=== PATIENT | female | born 1950 | race American Indian/Alaskan Native ===

== ENCOUNTER 2018-12-20 01:49 | Inpatient (IN) | payer MEDICARE ==
--- NOTE | 2018-12-20 02:29 | Emergency Department Report ---
ED General Adult HPI - General Chief complaint: Seizure Stated complaint: POSTICTAL Time Seen by Provider: 12/20/18 02:00 Source: patient, family, EMS (ems notes not available at time of chart dictation), RN notes reviewed Mode of arrival: Stretcher Limitations: Physical Limitation - History of Present Illness Initial comments: This is a 68-year-old female. The patient is not known to this provider previously. She has a history of chronic respiratory failure and is currently on home oxygen. She reportedly has a history of arthritis, seizure, not currently taking antiepileptic drug medication, congestive heart failure (does not know her ejection fraction), currently on torsemide diuretic therapy The patient formerly followed with the [facility], and now she follows with [facility]. She is brought to the hospital by emergent medical services for complaint of "seizure." The patient is accompanied by her son. Apparently, she is not taking any seizure medications, and her last convulsive event was 6-7 months ago. The patient was apparently in bed, and had a seizure. Were not sure how long it lasted for, were not sure what look like. The patient has chronic shortness of breath. However, she's recently been coughing more, and feeling more short of breath. She feels like her legs are slightly more swollen than usual. She has crampy achy lower extremity pain. The patient also describes abdominal cramping, and diarrhea. No irritative or obstructive urinary symptoms. The patient articulated to emergency medical services that she felt like she dislocated her kneecap, but is now resolved. The patient denies focal extremity weakness at this time. -: Sudden, days(s) Location: left, right, lower extremity Radiation: other Quality: other Consistency: other Improves with: other Worsens with: other Associated Symptoms: cough, seizure, shortness of breath, weakness - Related Data Home Medications Medication Instructions Recorded Confirmed Last Taken Losartan/Hydrochlorothiazide 1 tab PO QDAY 08/13/13 08/13/13 08/13/13 06:30 [Hyzaar 100-25 TAB] Allergies Allergy/AdvReac Type Severity Reaction Status Date / Time lisinopril Allergy Angioedema Verified 08/13/13 15:50 ED Review of Systems ROS: Stated complaint: POSTICTAL Other details as noted in HPI Constitutional: malaise. denies: diaphoresis Eyes: denies: eye discharge ENT: congestion Respiratory: shortness of breath, wheezing Cardiovascular: edema Gastrointestinal: abdominal pain, diarrhea Genitourinary: denies: dysuria Musculoskeletal: joint swelling, arthralgia, myalgia Skin: denies: lesions Neurological: confusion ED Past Medical Hx - Past Medical History Previous Medical History?: Yes Hx Hypertension: Yes Hx Congestive Heart Failure: Yes Hx Arthritis: Yes Hx Seizures: Yes - Surgical History Past Surgical History?: Yes Additional Surgical History: bilateral knee surgery - Social History Smoking Status: Former Smoker - Medications Home Medications: Home Medications Medication Instructions Recorded Confirmed Last Taken Type Losartan/Hydrochlorothiazide 1 tab PO QDAY 08/13/13 08/13/13 08/13/13 06:30 History [Hyzaar 100-25 TAB] ED Physical Exam - General Limitations: Physical Limitation General appearance: alert, in no apparent distress - Head Head exam: Present: atraumatic, normocephalic - Eye Eye exam: Present: normal appearance, PERRL, EOMI, other (visual acuity intact to finger counting, color perception, reading at a close distance). Absent: nystagmus - ENT ENT exam: Present: normal exam, normal orophraynx, mucous membranes moist, normal external ear exam - Neck Neck exam: Present: normal inspection, full ROM. Absent: tenderness, meningismus - Respiratory Respiratory exam: Present: rales, rhonchi - Cardiovascular Cardiovascular Exam: Present: regular rate, normal rhythm, normal heart sounds. Absent: bradycardia, tachycardia, irregular rhythm, diastolic murmur, rubs, gallop - GI/Abdominal GI/Abdominal exam: Present: soft. Absent: distended, tenderness, guarding, rebound, rigid, pulsatile mass - Extremities Exam Extremities exam: Present: normal inspection, pedal edema (3+ edema in the lower extremities), other (2+ pulses noted in the bilateral upper, lower extremities. Compartments soft. No long bony tenderness. The pelvis is stable.). Absent: calf tenderness - Back Exam Back exam: Present: normal inspection, full ROM. Absent: tenderness, CVA tenderness (R), paraspinal tenderness, vertebral tenderness - Neurological Exam Neurological exam: Present: alert (alert to name and location.), other (Extraocular movements intact. Tongue midline. No facial droop. Facial sensation intact to light touch in the V1, V2, V3 distribution bilaterally. 5 and 5 strength in 4 extremities.. Sensation is intact to light touch in 4 extremities.). Absent: motor sensory deficit - Psychiatric Psychiatric exam: Present: normal affect, normal mood - Skin Skin exam: Present: warm, dry, intact, normal color. Absent: rash ED Course Vital Signs 12/20/18 12/20/18 02:27 03:58 Temperature 97.7 F 97.7 F Pulse Rate 90 Respiratory 22 Rate Blood Pressure 109/68 [Right] O2 Sat by Pulse 97 Oximetry - Reevaluation(s) Reevaluation #1: 12/20/18 04:30 Differential diagnosis, including but not limited to: Pneumonia, congestive heart failure, bronchitis, emphysema, urinary tract infection, breakthrough seizure secondary to medication noncompliance Assessment and plan: 68-year-old female with a primary complaint of seizure, now awake and alert, nonfocal neurologic exam, intact mental status baseline as per son. On review of systems, endorses lower extremity pain, swelling, cough, shortness of breath. Suspect congestive heart failure exacerbation. Patient has lower extremity edema, crackles, elevated proBNP. Found to be hyponatremic, likely hypervolemic hyponatremia, hypomagnesemia, with renal insufficiency. May be a component of cardiorenal syndrome. Also hypocalcemic, may be secondary to malnutrition, as patient also has decreased albumin. X-ray of the lower extremities show no obvious fracture or dislocation. X-ray of the lungs suggests emphysematous changes, question congestive heart failure. Noncontrast CT scan of the brain, abdomen and pelvis is pending at this time. Plan to admit patient to the medical service for diuresis, initiation of a ED therapy, and electrolyte optimization, once her initial diagnostics have resulted. Reevaluation #2: 12/20/18 05:18 Laboratory studies also demonstrated hypomagnesemia. Noncontrast CT scan of the brain is negative. Noncontrast CT scan of the abdomen and pelvis negative for acute disease. Magnesium supplementation ordered. Case is presented to the Hospital physician, Dr. Austin who has accepted the patient to the medical service. ED Medical Decision Making - Lab Data Result diagrams: 12/20/18 03:06 12/20/18 03:06 Vital Signs 12/20/18 12/20/18 02:27 03:58 Temperature 97.7 F 97.7 F Pulse Rate 90 Respiratory 22 Rate Blood Pressure 109/68 [Right] O2 Sat by Pulse 97 Oximetry Lab Results 12/20/18 12/20/18 12/20/18 Range/Units 02:00 03:06 03:06 WBC 14.4 H (4.5-11.0) K/mm3 RBC 3.55 L (3.65-5.03) M/mm3 Hgb 11.2 (10.1-14.3) gm/dl Hct 33.8 (30.3-42.9) % MCV 95 (79-97) fl MCH 32 (28-32) pg MCHC 33 (30-34) % RDW 19.9 H (13.2-15.2) % Plt Count 233 (140-440) K/mm3 PT 15.1 H (12.2-14.9) Sec. INR 1.12 (0.87-1.13) Sodium (137-145) mmol/L Potassium (3.6-5.0) mmol/L Chloride (98-107) mmol/L Carbon Dioxide (22-30) mmol/L Anion Gap mmol/L BUN (7-17) mg/dL Creatinine (0.7-1.2) mg/dL Estimated GFR ml/min BUN/Creatinine Ratio % Glucose (65-100) mg/dL Calcium (8.4-10.2) mg/dL Total Bilirubin (0.1-1.2) mg/dL AST (5-40) units/L ALT (7-56) units/L Alkaline Phosphatase (35-129) units/L Total Creatine Kinase (30-135) units/L NT-Pro-B Natriuret Pep (0-900) pg/mL Total Protein (6.3-8.2) g/dL Albumin (3.9-5) g/dL Albumin/Globulin Ratio % Urine Color Yellow (Yellow) Urine Turbidity Slightly-cloudy (Clear) Urine pH 5.0 (5.0-7.0) Ur Specific Bernie 1.008 (1.003-1.030) Urine Protein <15 mg/dl (Negative) mg/dL Urine Glucose (UA) Neg (Negative) mg/dL Urine Ketones Neg (Negative) mg/dL Urine Blood Neg (Negative) Urine Nitrite Neg (Negative) Urine Bilirubin Neg (Negative) Urine Urobilinogen < 2.0 (<2.0) mg/dL Ur Leukocyte Esterase Neg (Negative) Urine WBC (Auto) 1.0 (0.0-6.0) /HPF Urine RBC (Auto) 1.0 (0.0-6.0) /HPF U Epithel Cells (Auto) 17.0 H (0-13.0) /HPF Urine Bacteria (Auto) 1+ (Negative) /HPF Amorphous Crystals 1+ Hyaline Casts 7 /LPF Urine Mucus Few /HPF 04// Range/Units 03:06 WBC (4.5-11.0) K/mm3 RBC (3.65-5.03) M/mm3 Hgb (10.1-14.3) gm/dl Hct (30.3-42.9) % MCV (79-97) fl MCH (28-32) pg MCHC (30-34) % RDW (13.2-15.2) % Plt Count (140-440) K/mm3 PT (12.2-14.9) Sec. INR (0.87-1.13) Sodium 129 L (137-145) mmol/L Potassium 3.0 L (3.6-5.0) mmol/L Chloride 86.1 L (98-107) mmol/L Carbon Dioxide 22 (22-30) mmol/L Anion Gap 24 mmol/L BUN 35 H (7-17) mg/dL Creatinine 1.4 H (0.7-1.2) mg/dL Estimated GFR 45 ml/min BUN/Creatinine Ratio 25 % Glucose 125 H (65-100) mg/dL Calcium 6.0 L (8.4-10.2) mg/dL Total Bilirubin 1.20 (0.1-1.2) mg/dL AST 33 (5-40) units/L ALT 17 (7-56) units/L Alkaline Phosphatase 59 (35-129) units/L Total Creatine Kinase 238 H (30-135) units/L NT-Pro-B Natriuret Pep 95563 H (0-900) pg/mL Total Protein 6.3 (6.3-8.2) g/dL Albumin 2.8 L (3.9-5) g/dL Albumin/Globulin Ratio 0.8 % Urine Color (Yellow) Urine Turbidity (Clear) Urine pH (5.0-7.0) Ur Specific Bernie (1.003-1.030) Urine Protein (Negative) mg/dL Urine Glucose (UA) (Negative) mg/dL Urine Ketones (Negative) mg/dL Urine Blood (Negative) Urine Nitrite (Negative) Urine Bilirubin (Negative) Urine Urobilinogen (<2.0) mg/dL Ur Leukocyte Esterase (Negative) Urine WBC (Auto) (0.0-6.0) /HPF Urine RBC (Auto) (0.0-6.0) /HPF U Epithel Cells (Auto) (0-13.0) /HPF Urine Bacteria (Auto) (Negative) /HPF Amorphous Crystals Hyaline Casts /LPF Urine Mucus /HPF - EKG Data -: EKG Interpreted by Me EKG shows normal: sinus rhythm - EKG Data When compared to previous EKG there are: previous EKG unavailable 12/20/18 04:32 EKG shows a sinus rhythm, left axis deviation, QTC prolonged, motion artifact, low voltage in the lateral leads, incomplete right bundle branch block, T-wave abnormalities in V2, V3, V4, V5, this is an abnormal EKG, this EKG is not consistent with ST elevation myocardial infarction. There is no prior for comparison. - Radiology Data Radiology results: pending, image reviewed interpreted by me: X-ray of the bilateral lower extremities demonstrates no obvious fracture or dislocation. Knee hardware is noted, DJD is noted, soft tissue swelling is noted. X-ray the chest shows chronic changes, emphysematous versus congestive heart failure versus both. Enlarged cardiac silhouette. No obvious pneumothorax. No discrete infiltrate. Question atelectatic changes. Critical Care Time: Yes Critical care time in (mins) excluding proc time.: 45 Critical care attestation.: If time is entered above; I have spent that time in minutes in the direct care of this critically ill patient, excluding procedure time. ED Disposition Clinical Impression: Breakthrough seizure, Fluid overload, Hypomagnesemia, Hypokalemia Disposition: 09 OP ADMIT IP TO THIS HOSP Is pt being admited?: Yes Condition: Fair Referrals: KRYSTAL CHASE MD [Primary Care Provider] - 3-5 Days
[2018-12-20 03:10] LABS: Amorphous Crystals,Urine 1+; Bacteria,Urine 1+ /HPF (Negative); Bilirubin,Urine NEG (Negative); Blood,Urine NEG (Negative); Color,Urine Yellow (Yellow); Hyaline Casts,Urine 7 /LPF; Mucus,Urine FEW /HPF; Protein,Urine <15 mg/dL mg/dL (Negative); Urobilinogen,Urine < 2.0 mg/dL (<2.0)
[2018-12-20 03:26] LABS: Hematocrit 33.8 % (30.3-42.9); Hemoglobin 11.2 gm/dl (10.1-14.3); Mean Corpuscular HGB Conc 33 % (30-34); Mean Corpuscular Volume 95 fl (79-97); Platelet Count 233 K/mm3 (140-440); Red Blood Count 3.55 M/mm3 (3.65-5.03); Red Cell Distribution Width 19.9 % (13.2-15.2)
[2018-12-20 03:36] LABS: INR 1.12 (0.87-1.13)
[2018-12-20 03:53] LABS: Albumin 2.8 g/dL (3.9-5)
[2018-12-20] MEDS ORDERED: LASIX IV ONE (04:40)
[2018-12-20] MEDS ORDERED: K-DUR PO ONE (04:40)
--- NOTE | 2018-12-20 04:56 | Cat Scan Report ---
PROCEDURE: CT HEAD/BRAIN WO CON TECHNIQUE: Computerized tomography of the head was performed without contrast material. CT DOSE LENGTH PRODUCT: mGycm HISTORY: hx of sz COMPARISONS: None . FINDINGS: Skull and scalp: Normal . Paranasal sinuses: Normal . Ventricles and subarachnoid spaces: There is mild central and cortical atrophy. There is no hydrocep halus or asymmetry. . Cerebrum: No evidence of hemorrhage, acute infarction or mass . Cerebellum and brainstem: No evidence of hemorrhage, acute infarction or mass . Vasculature: Normal . IMPRESSION: There is no acute intracranial abnormality. . This document is electronically signed by Deejay Song MD., December 20 2018 04:54:42 AM ET
[2018-12-20] MEDS: KCL 10MEQ/100ML 10 MEQ/100 ML BAG IV SCH ×4 (05:00→13:50)
--- NOTE | 2018-12-20 05:09 | Cat Scan Report ---
PROCEDURE: CT ABDOMEN PELVIS WO CON TECHNIQUE: Computerized axial tomography of the abdomen and pelvis was performed without intravenous contrast. This study is performed without intravascular contrast material and its sensitivity for ab dominal and pelvic pathology, including neoplasms, inflammation, abscess, free fluid, thrombosis, art erial dissection and infarction, is reduced compared with a contrast enhanced study. CT DOSE LENGTH PRODUCT: mGycm HISTORY: hx of abd pain diarrhea COMPARISONS: None . FINDINGS: Visualized lower thorax: No significant abnormality. Liver: Normal size and attenuation. Spleen: Normal size and attenuation. Gallbladder and biliary system: There is cholelithiasis.. Pancreas: Normal. Adrenals: Normal. Kidneys: There are no kidney stones. GI tract: There is diverticulosis of the colon. There is no diverticulitis, colitis, obstruction or mass. The appendix is normal. . Lymph nodes and mesentery: Normal. Vasculature: Normal.. Bladder: There is air in the bladder. There is a left-sided bladder diverticulum.. Reproductive organs: There is small calcified uterine fibroids.. Peritoneum: There is no ascites, free air, abscess or adenopathy.. Musculoskeletal structures: No significant abnormality. IMPRESSION: There is cholelithiasis.. There are no kidney stones. There is no hydronephrosis. There is diverticulosis of the colon. There is no diverticulitis, colitis, obstruction or mass. The a ppendix is normal. . There is air in the bladder. There is a left-sided bladder diverticulum.. There is no ascites, free air, abscess or adenopathy.. . This document is electronically signed by Deejay Song MD., December 20 2018 05:07:47 AM ET
[2018-12-20] MEDS ORDERED: MAG-OX PO STA (05:15)
[2018-12-20] MEDS ORDERED: MAGNESIUM SULFATE 2GM/50ML 2 GM/50 ML BAG IV ONE (05:15)
[2018-12-20] MEDS ORDERED: MAGNESIUM SULFATE 1 GM in NACL 0.9% 50 ML IV ONE ×2 (05:15→18:44)
[2018-12-20] MEDS ORDERED: CALCIUM GLUCONATE 1,000 MG in NACL 0.9% 100 ML IV ONE (05:19)
--- NOTE | 2018-12-20 05:24 | XRay Report ---
PROCEDURE: XR CHEST 1V AP TECHNIQUE: AP portable chest radiograph HISTORY: dyspnea COMPARISONS: Prior chest radiograph 12/30/2008. CT abdomen pelvis of the same date FINDINGS: No mediastinal shift. Cardiac silhouette is not enlarged. No pneumothorax, effusion, or focal airspac e disease identified. Bibasilar reticular opacities. No acute skeletal findings. IMPRESSION: No acute pulmonary finding identified. Bibasilar scarring/fibrosis. This document is electronically signed by Don Zaidi MD., December 20 2018 05:22:31 AM ET
--- NOTE | 2018-12-20 05:59 | XRay Report ---
PROCEDURE: XR KNEE BILAT 1-2V TECHNIQUE: 2 views of both knees HISTORY: b/l knee pain COMPARISONS: None available FINDINGS: Bilateral total knee arthroplasty with patellar resurfacing. Hardware appears intact. No joint effusi on identified. There is fragmentation of the superior right patella and asymmetric mild prepatellar s oft tissue swelling on the right. Vascular calcifications are noted. IMPRESSION: Bilateral total knee arthroplasty hardware appears intact. There is fragmentation of the superior makenna e right patella, which is favored to be chronic but correlation with point tenderness and history of injury is requested. This document is electronically signed by Don Zaidi MD., December 20 2018 05:56:50 AM ET
[2018-12-20] MEDS ORDERED: ZOFRAN IV PRN ×2 (06:00→06:04)
[2018-12-20] MEDS ORDERED: ATIVAN IV PRN (06:07)
--- NOTE | 2018-12-20 07:33 | History and Physical Report ---
History of Present Illness Date of examination: 12/20/18 Date of admission: 12/20/18 Chief complaint: Seizure History of present illness: This is a 68 y/o female with h/o arthritis, chf, chronic respiratory failure on home o2, remote h/o seizure not on meds for 5 years presented with sudden onset of seizure like activity witnessed by the Son. There was no tonguw bite, no loss of bowel/bladder, duration of seizure unknown. In the ER patient was oriented, c/o SOB and minimal leg swelling but no chest pain and oriented X3. her lab showed mg 0.4, with low Na, K and Ca. Her CT head had no acute process. She is on torsemide at home and admits compliance with meds. She denies any N/V/D or abdominal pain. She was called fir admission for further evaluation and management. Past medical History: h/o arthritis, chf, remote h/o seizure, on home O2 Past surgical History: s/p b/l knee replacement Social History: Lives with family, denies any smoking, and elicit drug abuse. admits occational drinking Family History: Significant for cancer in sister Review of System: Constitutional: no fever, no chills, no weight loss Ears, eyes, nose, mouth and throat: no nasal congestion, no nasal discharge, no sinus pressure, no vision change, no red eye. Neck: No neck pain or rigidity. Cardiovascular: No chest pain, no orthopnea, no palpitations, + minimal leg swelling Respiratory: + shortness of breath, no cough, no congestion, no wheezing Gastrointestinal: no abdominal pain, no nausea, no vomiting Genitourinary : no dysuria, no hematuria Musculoskeletal: no joint swelling or muscle ache Integumentary: no rash, no pruritis Neurological: no parathesias, no numbness, no tingling Endocrine: no cold or heat intolerance, no polyuria or polydipsia Hematologic/Lymphatic: no easy bruising, no easy bleeding, no gland swelling Allergic/Immunologic: no urticaria, no angioedema. Medications and Allergies Allergies Allergy/AdvReac Type Severity Reaction Status Date / Time lisinopril Allergy Angioedema Verified 08/13/13 15:50 Home Medications Medication Instructions Recorded Confirmed Last Taken Type Losartan/Hydrochlorothiazide 1 tab PO QDAY 08/13/13 12/20/18 08/13/13 06:30 History [Hyzaar 100-25 TAB] Carvedilol [Coreg] 3.125 mg PO DAILY 12/20/18 12/20/18 Unknown History Iron [Iron 18 MG TAB] 18 mg PO QDAY 12/20/18 12/20/18 Unknown History Omeprazole 20 mg PO DAILY 12/20/18 12/20/18 Unknown History Potassium Chloride [K-Dur] 10 meq PO BID 12/20/18 12/20/18 Unknown History Torsemide [Demadex] 10 mg PO QDAY 12/20/18 12/20/18 Unknown History Active Meds: Active Medications Acetaminophen (Tylenol) 650 mg PO Q4H PRN PRN Reason: Pain MILD(1-3)/Fever >100.5/HURTADO Potassium Chloride (Kcl 10meq/100ml) 10 meq in 100 mls @ 100 mls/hr IV Q1H BARB Stop: 12/20/18 08:59 Last Admin: 12/20/18 05:00 Dose: 100 mls/hr Documented by: Lorazepam (Ativan) 1 mg IV Q1H PRN PRN Reason: Seizures Ondansetron HCl (Zofran) 4 mg IV Q8H PRN PRN Reason: Nausea And Vomiting Sodium Chloride (Sodium Chloride Flush Syringe 10 Ml) 10 ml IV BID BARB Sodium Chloride (Sodium Chloride Flush Syringe 10 Ml) 10 ml IV PRN PRN PRN Reason: LINE FLUSH Exam - Physical Exam Narrative exam: GENERAL: well-developed and elderly AAF lying on bed appeared to be in no discomfort. HEENT: Normocephalic. Atraumatic. No conjunctival congestion or icterus. Patient has moist mucous membranes. NECK: Supple. Trachea midline. CHEST/LUNGS: Clear to auscultated bilaterally, + bibasilar crackles or rhonchi. HEART/CARDIOVASCULAR: Regular in rate and rhythm. S1 and S2 positive. ABDOMEN: Abdomen is soft, nontender. Patient has normal bowel sounds. SKIN: There is no rash. Warm and dry. NEURO: No focal motor deficit. Follows command. MUSCULOSKELETAL: No joint effusion or tenderness. EXTRIMITY: mild edema, no cyanosis or clubbing. PSYCH: Cooperative. - Constitutional Vitals: Temp Pulse Resp BP Pulse Ox 97.7 F 90 18 104/56 98 12/20/18 03:58 12/20/18 06:49 12/20/18 06:49 12/20/18 06:49 12/20/18 06:49 Results - Labs CBC & Chem 7: 12/20/18 03:06 12/22/18 07:42 Labs: Abnormal lab results 12/20/18 12/20/18 12/20/18 Range/Units 02:00 03:06 03:06 WBC 14.4 H (4.5-11.0) K/mm3 RBC 3.55 L (3.65-5.03) M/mm3 RDW 19.9 H (13.2-15.2) % PT 15.1 H (12.2-14.9) Sec. Sodium (137-145) mmol/L Potassium (3.6-5.0) mmol/L Chloride (98-107) mmol/L BUN (7-17) mg/dL Creatinine (0.7-1.2) mg/dL Glucose (65-100) mg/dL Calcium (8.4-10.2) mg/dL Magnesium (1.7-2.3) mg/dL Total Creatine Kinase (30-135) units/L NT-Pro-B Natriuret Pep (0-900) pg/mL Albumin (3.9-5) g/dL U Epithel Cells (Auto) 17.0 H (0-13.0) /HPF 12/20/18 Range/Units 03:06 WBC (4.5-11.0) K/mm3 RBC (3.65-5.03) M/mm3 RDW (13.2-15.2) % PT (12.2-14.9) Sec. Sodium 129 L (137-145) mmol/L Potassium 3.0 L (3.6-5.0) mmol/L Chloride 86.1 L (98-107) mmol/L BUN 35 H (7-17) mg/dL Creatinine 1.4 H (0.7-1.2) mg/dL Glucose 125 H (65-100) mg/dL Calcium 6.0 L (8.4-10.2) mg/dL Magnesium 0.40 L* (1.7-2.3) mg/dL Total Creatine Kinase 238 H (30-135) units/L NT-Pro-B Natriuret Pep [id number] H (0-900) pg/mL Albumin 2.8 L (3.9-5) g/dL U Epithel Cells (Auto) (0-13.0) /HPF Assessment and Plan Acute seizure, likely from electrolytes imbalance ? - CT head negative, cont keppra, consult neuro, seizure precaution CHF, with unknown ejection fraction - obtain 2d echo, cont home meds Chronic respiratory failure, likely from CHF?, cont supplemental O2 Hypokalemia, replete - likely from diuretics? Hypomagnesemia, cont to replete and monitor, likely from diuretics? Hypocalcemia, replete, check PTH and VitD hyponatremia, dehydration? - monitor BMP RADHIKA on possible CKD, monitor renal function, consult renal, renal US Osteoarthritis, supportive care DVT Px, lovenox Radiological data: CXR: No acute pulmonary finding identified. Bibasilar scarring/fibrosis. CT abdomen/pelvis; There is cholelithiasis.. There are no kidney stones. There is no hydronephrosis. There is diverticulosis of the colon. There is no diverticulitis, colitis, obstruction or mass. The appendix is normal. . There is air in the bladder. There is a left-sided bladder diverticulum.. There is no ascites, free air, abscess or adenopathy.. . CT head: There is no acute intracranial abnormality. .
[2018-12-20] MEDS ORDERED: KCL 10MEQ/100ML 30 MEQ/300 ML BAG IV ONE (07:55)
[2018-12-20] MEDS: KEPPRA 750 MG in NACL 0.9% 100 ML IV SCH ×2 (09:11→22:55)
[2018-12-20] MEDS: SODIUM CHLORIDE FLUSH SYRINGE 10 ML IV SCH ×2 (10:52→22:55)
[2018-12-20] MEDS ORDERED: CALCIUM GLUCONATE 2,000 MG in NACL 0.9% 100 ML IV ONE (15:04)
[2018-12-20] MEDS: K-DUR PO SCH (22:55)
[2018-12-20] MEDS: COREG PO SCH (22:55)
[2018-12-21] MEDS: TYLENOL PO PRN ×2 (00:31→15:41)
[2018-12-21] MEDS ORDERED: PROVENTIL IH PRN (02:00)
[2018-12-21 07:42] LABS: Calcium 6.3 mg/dL (8.4-10.2)
[2018-12-21] MEDS ORDERED: MAGNESIUM SULFATE 2GM/50ML 2 GM/50 ML BAG IV ONE ×2 (09:30→18:00)
[2018-12-21] MEDS ORDERED: NON-FORMULARY (Omeprazole [Omeprazole] 20 MG) PO SCH (10:00)
[2018-12-21] MEDS ORDERED: IRON 18 MG PO SCH (10:00)
[2018-12-21] MEDS: SODIUM CHLORIDE FLUSH SYRINGE 10 ML IV SCH ×3 (10:15→22:31)
[2018-12-21] MEDS: K-DUR PO SCH ×2 (10:15→22:30)
[2018-12-21] MEDS: PROTONIX PO SCH (10:15)
[2018-12-21] MEDS: COREG PO SCH (11:01)
[2018-12-21] MEDS: KEPPRA 750 MG in NACL 0.9% 100 ML IV SCH ×2 (11:34→22:30)
[2018-12-21] MEDS ORDERED: LOVENOX SUB-Q SCH (12:00)
--- NOTE | 2018-12-21 12:25 | Event Note ---
Date: 12/21/[address] Frances. Recurrence of seizures may just be due to the very low magnesium of 0.4. Agree with restarting her Keppra to send her home on, then have her follow-up with an outpatient neurologist who may later be able to taper it off again. No further seizure workup needed here and no need for me to see her. Magnesium has improved to 1.0 but I suspect she may need 4-6 grams magnesium sulfate per day IV for a few days before oral magnesium (preferably chelated or magnesium citrate gelcaps since better absorbed) can maintain her. The bigger question is why her magnesium got so low. Dr. Velasquez, spray painter, will address this expertly.
--- NOTE | 2018-12-21 14:25 | Consultation ---
History of Present Illness - Reason for Consult Consult date: 12/21/18 acute renal failure, other (hypomagnesemia) - History of Present Illness The patient is a 68 YO female with history significant for HTN, Chronic respiratory failure home O2, OA, Seizure disorder, CHF and Obesity who was brou ght to the hospital by EMS with complaint of seizure. The patient was had a seizure while in the bed. Patient was not able to provide the details and there was no family member at the bedside. Her last seizure was 6-7 months ago and currently she is not taking any seizure medications. Patient has chronic cough and wheezing. She also reports decreased appetite and not eating much. Denies any N, V, D, abd pain, dysuria, hematuria, HURTADO, cp, sob or syncope. Creatinine was 1.4, Mg 0.4 and Sodium 129. Nephrology was consulted for further evaluation. Past History Past Medical History: heart failure, hyperlipidemia, seizures Medications and Allergies Allergies Allergy/AdvReac Type Severity Reaction Status Date / Time lisinopril Allergy Angioedema Verified 08/13/13 15:50 Home Medications Medication Instructions Recorded Confirmed Last Taken Type Losartan/Hydrochlorothiazide 1 tab PO QDAY 08/13/13 12/20/18 08/13/13 06:30 History [Hyzaar 100-25 TAB] Carvedilol [Coreg] 3.125 mg PO DAILY 12/20/18 12/20/18 Unknown History Iron [Iron 18 MG TAB] 18 mg PO QDAY 12/20/18 12/20/18 Unknown History Omeprazole 20 mg PO DAILY 12/20/18 12/20/18 Unknown History Potassium Chloride [K-Dur] 10 meq PO BID 12/20/18 12/20/18 Unknown History Torsemide [Demadex] 10 mg PO QDAY 12/20/18 12/20/18 Unknown History Active Meds: Active Medications Acetaminophen (Tylenol) 650 mg PO Q4H PRN PRN Reason: Pain MILD(1-3)/Fever >100.5/HURTADO Last Admin: 12/21/18 00:31 Dose: 650 mg Documented by: Albuterol (Proventil) 2.5 mg IH Q4HRT PRN PRN Reason: Shortness Of Breath Last Admin: 12/21/18 11:51 Dose: 2.5 mg Documented by: Enoxaparin Sodium (Lovenox) 40 mg SUB-Q QDAY@1000 [facility] Levetiracetam 750 mg/ Sodium (Chloride) 107.5 mls @ 400 mls/hr IV Q12HR [facility] Last Admin: 12/21/18 11:34 Dose: 400 mls/hr Documented by: Lorazepam (Ativan) 1 mg IV Q1H PRN PRN Reason: Seizures Ondansetron HCl (Zofran) 4 mg IV Q8H PRN PRN Reason: Nausea And Vomiting Pantoprazole Sodium (Protonix) 20 mg PO QDAY [facility] Last Admin: 12/21/18 10:15 Dose: 20 mg Documented by: Potassium Chloride (K-Dur) 10 meq PO BID [facility] Last Admin: 12/21/18 10:15 Dose: 10 meq Documented by: Sodium Chloride (Sodium Chloride Flush Syringe 10 Ml) 10 ml IV BID [facility] Last Admin: 12/21/18 11:39 Dose: 10 ml Documented by: Sodium Chloride (Sodium Chloride Flush Syringe 10 Ml) 10 ml IV PRN PRN PRN Reason: LINE FLUSH Review of Systems Constitutional: anorexia, poor appetite, no weight loss, no weight gain, no fever, no chills, no fatigue, no weakness Breasts: deferred Cardiovascular: edema, shortness of breath, dyspnea on exertion, high blood pressure, leg edema, decreased exercise tolerance, no chest pain, no orthopnea, no syncope, no lightheadedness Respiratory: cough, cough with sputum, shortness of breath, dyspnea on exertion, wheezing, home oxygen, no hemoptysis Gastrointestinal: no abdominal pain, no nausea, no vomiting, no diarrhea, no melena Genitourinary Female: no dysuria, no hematuria Rectal: no bleeding Integumentary: no rash, no wounds, no jaundice Neurological: seizures, convulsions, no paralysis, no syncope, no aphasia, no motor disturbance Exam - Vital Signs Vital signs: Vital Signs Temp 97.7 F 12/20/18 02:27 - General Appearance General appearance: well-developed, well-nourished, appears stated age, other (not in distress) EENT: ATNC, PERRL, hearing intact, vision intact Neck: Present: neck supple, trachea midline Respiratory: Clear to Ascultation Heart: regular, S1S2, no murmurs Gastrointestinal: Present: normoactive bowel sounds. Absent: tenderness, distended Integumentary: no rash, warm and dry Neurologic: no focal deficit, no asterixis, alert and oriented x3 Musculoskeletal: Present: other (no edema) Psychiatric: cooperative Results - Lab Results 12/20/18 03:06 12/21/18 06:08 Most recent lab results Calcium 6.3 mg/dL (8.4-10.2) L 12/21/18 06:08 Magnesium 1.00 mg/dL (1.7-2.3) L 12/21/18 06:08 - Image Kidney/bladder ultrasound: pending Assessment and Plan 1. Acute kidney injury: Vasomotor RADHIKA due to volume depletion. Urine studies and Renal US pending. Slight increase in the creatinine level noted. Monitor renal function. Patient need low volume IV fluids. Avoid nephrotoxic agents. Meds dosage based on GFR. 2. FEN: Hypomagnesemia, likely secondary to diuretics and poor PO intake. Replete Mg. Hypokalemia, K level is better. Replete Calcium. Monitor lytes. 3. Seizures: Followed by neuro. 4. H/o CHF: Compensated.
--- NOTE | 2018-12-21 15:05 | Progress Note ---
Assessment and Plan Acute seizure, likely from electrolytes imbalance ? - CT head negative, cont keppra, consulted neuro, seizure precaution CHF, with unknown ejection fraction, compensated - follow 2d echo, cont home meds Chronic respiratory failure, likely from CHF?, cont supplemental O2 Hypokalemia, replete - likely from diuretics? Hypomagnesemia, cont to replete and monitor, likely from diuretics? Hypocalcemia, replete, check PTH and VitD hyponatremia, dehydration? - monitor BMP RADHIKA on possible CKD, monitor renal function, consult renal, renal US Osteoarthritis, supportive care, PT eval when stable DVT Px, lovenox Radiological data: CXR: No acute pulmonary finding identified. Bibasilar scarring/fibrosis. CT abdomen/pelvis; There is cholelithiasis.. There are no kidney stones. There is no hydronephrosis. There is diverticulosis of the colon. There is no diverticulitis, colitis, obstruction or mass. The appendix is normal. . There is air in the bladder. There is a left-sided bladder diverticulum.. There is no ascites, free air, abscess or adenopathy.. . CT head: There is no acute intracranial abnormality. . Brief History: This is a 68 y/o female with h/o arthritis, chf, chronic respiratory failure on home o2, remote h/o seizure not on meds for 5 years presented with sudden onset of seizure like activity witnessed by the Son. There was no tonguw bite, no loss of bowel/bladder, duration of seizure unknown. In the ER patient was oriented, c/o SOB and minimal leg swelling but no chest pain and oriented X3. her lab showed mg 0.4, with low Na, K and Ca. Her CT head had no acute process. She is on torsemide at home and admits compliance with meds. She denies any N /V/D or abdominal pain. She was called fir admission for further evaluation and management. Subjective Date of service: 12/21/18 Interval history: Patient seen and examined denies any chest pain, states feels lot better, breathing better Objective - Exam Narrative Exam: GENERAL: well-developed and elderly AAF lying on bed appeared to be in no discomfort. HEENT: Normocephalic. Atraumatic. No conjunctival congestion or icterus. Patient has moist mucous membranes. NECK: Supple. Trachea midline. CHEST/LUNGS: Clear to auscultated bilaterally, + bibasilar crackles or rhonchi. HEART/CARDIOVASCULAR: Regular in rate and rhythm. S1 and S2 positive. ABDOMEN: Abdomen is soft, nontender. Patient has normal bowel sounds. SKIN: There is no rash. Warm and dry. NEURO: No focal motor deficit. Follows command. MUSCULOSKELETAL: No joint effusion or tenderness. EXTRIMITY: mild edema, no cyanosis or clubbing. PSYCH: Cooperative. - Constitutional Vitals: Vital Signs - 12hr 12/21/18 12/21/18 12/21/18 04:50 09:16 11:01 Temperature 98.2 F Pulse Rate 88 93 H 93 H Pulse Rate [ Bilateral Throughout] Respiratory 20 22 Rate Respiratory Rate [Bilateral Throughout] Blood Pressure 96/49 97/56 97/56 O2 Sat by Pulse 100 93 Oximetry 12/21/18 11:51 Temperature Pulse Rate Pulse Rate [ 83 Bilateral Throughout] Respiratory Rate Respiratory 20 Rate [Bilateral Throughout] Blood Pressure O2 Sat by Pulse 98 Oximetry - Labs CBC & Chem 7: 12/20/18 03:06 12/22/18 07:42 Labs: Abnormal lab results 12/21/18 Range/Units 06:08 Sodium 130 L (137-145) mmol/L Chloride 88.9 L (98-107) mmol/L BUN 43 H (7-17) mg/dL Creatinine 1.6 H (0.7-1.2) mg/dL Glucose 131 H (65-100) mg/dL Calcium 6.3 L (8.4-10.2) mg/dL Magnesium 1.00 L (1.7-2.3) mg/dL
[2018-12-21] MEDS ORDERED: CALCIUM GLUCONATE 2,000 MG in NACL 0.9% 100 ML IV ONE (15:30)
[2018-12-21] MEDS: LOVENOX SUB-Q SCH (16:06)
[2018-12-21] MEDS: NACL 0.9% 1000 ML 1,000 ML IV SCH (16:10)
[2018-12-22 00:42] LABS: Creatinine,Urine 85.8 mg/dL (0.1-20.0)
[2018-12-22 08:42] LABS: Calcium 7.3 mg/dL (8.4-10.2)
--- NOTE | 2018-12-22 09:58 | Progress Note ---
Assessment and Plan 1. Acute kidney injury: Vasomotor RADHIKA due to volume depletion. Renal US negative for hydro. Creatinine level is better today. Monitor renal function. Continue Patient IV fluids. Avoid nephrotoxic agents. Meds dosage based on GFR. 2. FEN: Hypomagnesemia, likely secondary to diuretics and poor PO intake. Replete Mg. Hypokalemia, replete K. Replete Calcium. Monitor lytes. 3. Seizures. 4. H/o CHF: Compensated. Subjective Date of service: 12/22/18 Interval history: Patient was seen and examined at the bedside. Objective - Vital Signs Vital signs: Vital Signs - 12hr 12/21/18 12/21/18 12/22/18 22:00 23:41 04:51 Temperature 98.2 F 98.1 F Pulse Rate 89 84 86 Respiratory 18 18 Rate Blood Pressure 107/54 98/58 O2 Sat by Pulse 98 100 98 Oximetry - General Appearance General appearance: well-developed, well-nourished, appears stated age, other (not in distress) EENT: ATNC, PERRL, vision intact Neck: supple Respiratory: Present: Clear to Ascultation Cardiology: regular, S1S2, no murmurs Gastrointestinal: normoactive bowel sounds Integumentary: no rash, warm and dry Neurologic: no focal deficit, no asterixis Musculoskeletal: other (no edema) - Lab 12/20/18 03:06 12/24/18 06:53 Most recent lab results Calcium 7.3 mg/dL (8.4-10.2) L D 12/22/18 07:42 Phosphorus 3.10 mg/dL (2.5-4.5) 12/22/18 07:42 Magnesium 1.60 mg/dL (1.7-2.3) L 12/22/18 07:42 Urine Creatinine 85.8 mg/dL (0.1-20.0) H 12/22/18 00:25 Urine Sodium 21 mmol/L 12/22/18 00:25 Medications & Allergies - Medications Allergies/Adverse Reactions: Allergies lisinopril Allergy (Verified 08/13/13 15:50) Angioedema Home Medications: Home Medications Medication Instructions Recorded Confirmed Last Taken Type Carvedilol [Coreg] 3.125 mg PO DAILY 12/20/18 12/20/18 Unknown History Iron [Iron 18 MG TAB] 18 mg PO QDAY 12/20/18 12/20/18 Unknown History Omeprazole 20 mg PO DAILY 12/20/18 12/20/18 Unknown History Potassium Chloride [K-Dur] 10 meq PO BID 12/20/18 12/20/18 Unknown History Loperamide [Imodium] 2 mg PO Q2HR PRN #10 capsule 12/23/18 Unknown Rx Magnesium Oxide [Magnesium] 200 mg PO DAILY #10 tab.chew 12/23/18 Unknown Rx levETIRAcetam [Keppra TAB] 750 mg PO BID #60 tablet 12/23/18 Unknown Rx Active Medications: Generic Name Dose Route Start Last Admin Trade Name Freq PRN Reason Stop Dose Admin Acetaminophen 650 mg 12/20/18 06:00 12/21/18 15:41 Tylenol PO 650 mg Q4H PRN Administration Pain MILD(1-3)/Fever >100.5/HURTADO Albuterol 2.5 mg 12/21/18 02:00 12/21/18 11:51 Proventil IH 2.5 mg Q4HRT PRN Administration Shortness Of Breath Enoxaparin Sodium 40 mg 12/21/18 12:00 12/21/18 16:06 Lovenox SUB-Q 40 mg QDAY@1000 [facility] Administration Levetiracetam 750 mg/ Sodium 107.5 mls @ 400 mls/hr 12/20/18 09:00 12/21/18 22:30 Chloride IV 400 mls/hr Q12HR [facility] Administration Sodium Chloride 1,000 mls @ 50 mls/hr 12/21/18 15:00 12/21/18 16:10 Nacl 0.9% 1000 Ml IV 50 mls/hr DIRECT [facility] Administration Lorazepam 1 mg 12/20/18 06:07 Ativan IV Q1H PRN Seizures Ondansetron HCl 4 mg 12/20/18 06:00 Zofran IV Q8H PRN Nausea And Vomiting Pantoprazole Sodium 20 mg 12/21/18 10:00 12/21/18 10:15 Protonix PO 20 mg QDAY [facility] Administration Potassium Chloride 10 meq 12/20/18 22:00 12/21/18 22:30 K-Dur PO 10 meq BID [facility] Administration Sodium Chloride 10 ml 12/20/18 10:00 12/21/18 22:31 Sodium Chloride Flush Syringe 10 Ml IV 10 ml BID [facility] Administration Sodium Chloride 10 ml 12/20/18 06:00 Sodium Chloride Flush Syringe 10 Ml IV PRN PRN LINE FLUSH
--- NOTE | 2018-12-22 10:27 | Ultrasound Report ---
PROCEDURE: US RENAL BILAT TECHNIQUE: Transverse longitudinal sonograms obtained with cain scale sonography HISTORY: ckd COMPARISONS: Abdominal pelvic CT December 20, 2018 FINDINGS: Right kidney measures 9.2 x 4.3 x 4.4 cm. Cortex 1.4 cm. Left kidney measures 9.4 x 5.5 x 4.3 cm. Cortex 1.3 cm. Kidneys demonstrate no hydronephrosis. No calculus. No cyst or mass. Bilateral cortex mildly increased echogenicity which can be seen in chronic renal disease. IMPRESSION: Normal-sized kidneys without hydronephrosis Mild bilateral increase in renal cortical echogenicity which can be seen in the setting of chronic re nal disease. This document is electronically signed by Galo Ackerman MD., December 22 2018 10:25:49 AM ET
[2018-12-22] MEDS ORDERED: CALCIUM GLUCONATE 2,000 MG in NACL 0.9% 100 ML IV ONE (11:00)
[2018-12-22] MEDS ORDERED: MAGNESIUM SULFATE 2GM/50ML 2 GM/50 ML BAG IV ONE (11:00)
[2018-12-22] MEDS ORDERED: K-DUR PO ONE (11:00)
[2018-12-22] MEDS: KEPPRA 750 MG in NACL 0.9% 100 ML IV SCH ×2 (11:00→21:54)
[2018-12-22] MEDS: LOVENOX SUB-Q SCH (11:05)
[2018-12-22] MEDS: K-DUR PO SCH ×2 (11:05→21:55)
[2018-12-22] MEDS: PROTONIX PO SCH (11:05)
[2018-12-22] MEDS ORDERED: MAGNESIUM SULFATE 1 GM in NACL 0.9% 50 ML IV ONE (11:31)
--- NOTE | 2018-12-22 11:32 | Progress Note ---
Assessment and Plan Acute seizure, likely from electrolytes imbalance ? - CT head negative, cont keppra, consulted neuro, seizure precaution CHF, with unknown ejection fraction, compensated - will follow 2d echo, cont home meds Chronic respiratory failure, likely from CHF?, cont supplemental O2 Hypokalemia, replete - likely from diuretics? Hypomagnesemia, cont to replete and monitor, likely from diuretics? Hypocalcemia, replete, check PTH and VitD hyponatremia, dehydration? - monitor BMP RADHIKA on possible CKD, monitor renal function, consult renal, renal US Osteoarthritis, supportive care, PT eval when stable DVT Px, lovenox Radiological data: CXR: No acute pulmonary finding identified. Bibasilar scarring/fibrosis. CT abdomen/pelvis; There is cholelithiasis.. There are no kidney stones. There is no hydronephrosis. There is diverticulosis of the colon. There is no diverticulitis, colitis, obstruction or mass. The appendix is normal. . There is air in the bladder. There is a left-sided bladder diverticulum.. There is no ascites, free air, abscess or adenopathy.. . CT head: There is no acute intracranial abnormality. . Brief History: This is a 68 y/o female with h/o arthritis, chf, chronic respiratory failure on home o2, remote h/o seizure not on meds for 5 years presented with sudden onset of seizure like activity witnessed by the Son. There was no tonguw bite, no loss of bowel/bladder, duration of seizure unknown. In the ER patient was oriented, c/o SOB and minimal leg swelling but no chest pain and oriented X3. her lab showed mg 0.4, with low Na, K and Ca. Her CT head had no acute process. She is on torsemide at home and admits compliance with meds. She denies any N/V/D or abdominal pain. She was called fir admission for further evaluation and management. Subjective Date of service: 12/22/18 Interval history: Patient seen and examined denies any chest pain, states feels lot better, breathing better K and Mg level improving Objective - Exam Narrative Exam: GENERAL: well-developed and elderly AAF lying on bed appeared to be in no discomfort. HEENT: Normocephalic. Atraumatic. No conjunctival congestion or icterus. Patient has moist mucous membranes. NECK: Supple. Trachea midline. CHEST/LUNGS: Clear to auscultated bilaterally, + bibasilar crackles or rhonchi. HEART/CARDIOVASCULAR: Regular in rate and rhythm. S1 and S2 positive. ABDOMEN: Abdomen is soft, nontender. Patient has normal bowel sounds. SKIN: There is no rash. Warm and dry. NEURO: No focal motor deficit. Follows command. MUSCULOSKELETAL: No joint effusion or tenderness. EXTRIMITY: mild edema, no cyanosis or clubbing. PSYCH: Cooperative. - Constitutional Vitals: Vital Signs - 12hr 12/21/18 12/22/18 23:41 04:51 Temperature 98.2 F 98.1 F Pulse Rate 84 86 Respiratory 18 18 Rate Blood Pressure 107/54 98/58 O2 Sat by Pulse 100 98 Oximetry - Labs CBC & Chem 7: 12/20/18 03:06 12/23/18 08:05 Labs: Abnormal lab results 12/22/18 12/22/18 12/22/18 Range/Units 00:25 07:42 07:42 Sodium 131 L (137-145) mmol/L Potassium 3.3 L (3.6-5.0) mmol/L Chloride 91.8 L (98-107) mmol/L BUN 41 H (7-17) mg/dL Creatinine 1.4 H (0.7-1.2) mg/dL Glucose 118 H (65-100) mg/dL Calcium 7.3 L D (8.4-10.2) mg/dL Magnesium 1.60 L (1.7-2.3) mg/dL PTH Intact 186.9 H (15-65) pg/mL Urine Creatinine 85.8 H (0.1-20.0) mg/dL
[2018-12-22] MEDS: SODIUM CHLORIDE FLUSH SYRINGE 10 ML IV SCH ×2 (13:25→21:55)
[2018-12-22] MEDS: NACL 0.9% 1000 ML 1,000 ML IV SCH (21:54)
[2018-12-23 09:21] LABS: BUN/Creatinine Ratio 31; Blood Urea Nitrogen 31 mg/dL (7-17); Calcium 8.6 mg/dL (8.4-10.2); Hemolysis Index 4
[2018-12-23] MEDS: PROTONIX PO SCH (09:28)
[2018-12-23] MEDS: K-DUR PO SCH ×2 (09:28→22:05)
[2018-12-23] MEDS: KEPPRA 750 MG in NACL 0.9% 100 ML IV SCH (09:28)
[2018-12-23] MEDS: LOVENOX SUB-Q SCH (09:29)
[2018-12-23] MEDS: SODIUM CHLORIDE FLUSH SYRINGE 10 ML IV SCH ×2 (09:29→22:08)
--- NOTE | 2018-12-23 11:57 | Discharge Summary ---
Providers - Providers Date of Admission: 12/20/18 07:43 Date of discharge: 12/23/18 Attending physician: LM SIEGEL 12/20/18 15:07 Consult to Physician [CONS] Routine Comment: Consulting Provider: KRYSTAL MAGANA Physician Instructions: Reason For Exam: breakthrough seizure 12/21/18 08:31 Consult to Physician [CONS] Routine Comment: Consulting Provider: BLANQUITA TAVARES Physician Instructions: Reason For Exam: [email or web address] Primary care physician: KRYSTAL CHASE Hospitalization Reason for admission: seizure Condition: Fair Pertinent studies: Renal ultrasound Abdomen pelvis CT Knee x-ray Head CT Chest x-ray 2-D echo Hospital course: Brief History: This is a 68 y/o female with h/o arthritis, chf, chronic respiratory failure on home o2, remote h/o seizure not on meds for 5 years presented with sudden onset of seizure like activity witnessed by the Son. There was no tonguw bite, no loss of bowel/bladder, duration of seizure unknown. In the ER patient was oriented, c/o SOB and minimal leg swelling but no chest pain and oriented X3. her lab showed mg 0.4, with low Na, K and Ca. Her CT head had no acute process. She is on torsemide at home and admits compliance with meds. She denies any N/V/D or abdominal pain. She was called fir admission for further evaluation and management. Radiological data: CXR: No acute pulmonary finding identified. Bibasilar scarring/fibrosis. CT abdomen/pelvis; There is cholelithiasis.. There are no kidney stones. There is no hydronephrosis. There is diverticulosis of the colon. There is no diverticulitis, colitis, obstruction or mass. The appendix is normal. . There is air in the bladder. There is a left-sided bladder diverticulum.. There is no ascites, free air, abscess or adenopathy.. . CT head: There is no acute intracranial abnormality. . 2D echo: EF 60-65%, moderate to severe PHTN Discharge diagnosis and management: Acute seizure, likely from electrolytes imbalance ? - CT head negative, cont keppra, consulted neuro, seizure precaution Moderate to severe PHTN - cont home O2, outpt f/u with Pulmonary CHF, ruled out with 2d echo Chronic respiratory failure, likely from CHF?, cont supplemental O2 Hypokalemia, replete - likely from diuretics? Hypomagnesemia, cont to replete and monitor, likely from diuretics? Hypocalcemia, replete, check PTH and VitD hyponatremia, dehydration? - monitor BMP RADHIKA on possible CKD, monitor renal function, consult renal, renal US Osteoarthritis, supportive care, PT eval when stable DVT Px, lovenox Physical exam GENERAL: well-developed and elderly AAF lying on bed appeared to be in no discomfort. HEENT: Normocephalic. Atraumatic. No conjunctival congestion or icterus. Patient has moist mucous membranes. NECK: Supple. Trachea midline. CHEST/LUNGS: Clear to auscultated bilaterally, + bibasilar crackles or rhonchi. HEART/CARDIOVASCULAR: Regular in rate and rhythm. S1 and S2 positive. ABDOMEN: Abdomen is soft, nontender. Patient has normal bowel sounds. SKIN: There is no rash. Warm and dry. NEURO: No focal motor deficit. Follows command. MUSCULOSKELETAL: No joint effusion or tenderness. EXTRIMITY: mild edema, no cyanosis or clubbing. PSYCH: Cooperative. Disposition: [id number] HOME UNDER HOME [facility] Time spent for discharge: 34 minutes Core Measure Documentation - Palliative Care Palliative Care/ Comfort Measures: Not Applicable - Core Measures Any of the following diagnoses?: none Exam - Constitutional Vitals: Temp Pulse Resp BP Pulse Ox 98.3 F 87 20 117/61 99 12/23/18 08:46 12/23/18 08:45 12/23/18 08:45 12/23/18 08:45 12/23/18 08:45 Plan Activity: advance as tolerated, fall precautions Weight Bearing Status: Non-Weight Bearing Diet: low fat Durable Medical Equipment Needed Upon Discharge: Oxygen Additional Instructions: BMP in one week Follow up with: KRYSTAL CHASE MD [Primary Care Provider] - 3-5 Days BLANQUITA TAVARES MD [Staff Physician] - 7 Days Prescriptions: Loperamide [Imodium] 2 mg PO Q2HR PRN #10 capsule PRN Reason: Diarrhea levETIRAcetam [Keppra TAB] 750 mg PO BID #60 tablet Magnesium Oxide [Magnesium] 200 mg PO DAILY #10 tab.chew
--- NOTE | 2018-12-23 12:21 | Progress Note ---
Assessment and Plan 1. Acute kidney injury: Vasomotor RADHIKA due to volume depletion. Renal US negative for hydro. Renal function is better. Monitor renal function. Continue Patient IV fluids. Avoid nephrotoxic agents. Meds dosage based on GFR. 2. FEN: Hypomagnesemia, improved. Hypokalemia, improved. Monitor lytes. 3. Seizures. 4. H/o CHF: Compensated. Subjective Date of service: 12/23/18 Interval history: Patient was seen and examined at the bedside. Doing ok. Objective - Vital Signs Vital signs: Vital Signs - 12hr 12/23/18 12/23/18 12/23/18 03:54 08:45 08:46 Temperature 98.3 F 98.3 F Pulse Rate 93 H 87 Respiratory 20 20 Rate Blood Pressure 116/63 117/61 O2 Sat by Pulse 93 99 Oximetry - General Appearance General appearance: well-developed, well-nourished, appears stated age, other (not in distress) EENT: ATNC, PERRL, mucous membranes moist, hearing intact, vision intact Neck: supple Respiratory: Present: Clear to Ascultation Cardiology: regular, S1S2, no murmurs Gastrointestinal: normoactive bowel sounds, no tenderness, no distended Integumentary: no rash, warm and dry Neurologic: no focal deficit, no asterixis Musculoskeletal: other (no edema) Psychiatric: cooperative - Lab 12/20/18 03:06 12/24/18 06:53 Most recent lab results Calcium 8.6 mg/dL (8.4-10.2) D 12/23/18 08:05 Phosphorus 3.10 mg/dL (2.5-4.5) 12/22/18 07:42 Magnesium 2.00 mg/dL (1.7-2.3) 12/23/18 08:05 Urine Creatinine 85.8 mg/dL (0.1-20.0) H 12/22/18 00:25 Urine Sodium 21 mmol/L 12/22/18 00:25 Medications & Allergies - Medications Allergies/Adverse Reactions: Allergies lisinopril Allergy (Verified 08/13/13 15:50) Angioedema Home Medications: Home Medications Medication Instructions Recorded Confirmed Last Taken Type Carvedilol [Coreg] 3.125 mg PO DAILY 12/20/18 12/20/18 Unknown History Iron [Iron 18 MG TAB] 18 mg PO QDAY 12/20/18 12/20/18 Unknown History Omeprazole 20 mg PO DAILY 12/20/18 12/20/18 Unknown History Potassium Chloride [K-Dur] 10 meq PO BID 12/20/18 12/20/18 Unknown History Loperamide [Imodium] 2 mg PO Q2HR PRN #10 capsule 12/23/18 Unknown Rx Magnesium Oxide [Magnesium] 200 mg PO DAILY #10 tab.chew 12/23/18 Unknown Rx levETIRAcetam [Keppra TAB] 750 mg PO BID #60 tablet 12/23/18 Unknown Rx Active Medications: Generic Name Dose Route Start Last Admin Trade Name Freq PRN Reason Stop Dose Admin Acetaminophen 650 mg 12/20/18 06:00 12/21/18 15:41 Tylenol PO 650 mg Q4H PRN Administration Pain MILD(1-3)/Fever >100.5/HURTADO Albuterol 2.5 mg 12/21/18 02:00 12/21/18 11:51 Proventil IH 2.5 mg Q4HRT PRN Administration Shortness Of Breath Enoxaparin Sodium 40 mg 12/21/18 12:00 12/23/18 09:29 Lovenox SUB-Q 40 mg QDAY@1000 [facility] Administration Levetiracetam 750 mg/ Sodium 107.5 mls @ 400 mls/hr 12/20/18 09:00 12/23/18 09:28 Chloride IV 400 mls/hr Q12HR [facility] Administration Sodium Chloride 1,000 mls @ 50 mls/hr 12/21/18 15:00 12/22/18 21:54 Nacl 0.9% 1000 Ml IV 50 mls/hr DIRECT [facility] Administration Lorazepam 1 mg 12/20/18 06:07 Ativan IV Q1H PRN Seizures Ondansetron HCl 4 mg 12/20/18 06:00 Zofran IV Q8H PRN Nausea And Vomiting Pantoprazole Sodium 20 mg 12/21/18 10:00 12/23/18 09:28 Protonix PO 20 mg QDAY [facility] Administration Potassium Chloride 20 meq 12/22/18 11:32 12/23/18 09:28 K-Dur PO 20 meq BID [facility] Administration Sodium Chloride 10 ml 12/20/18 10:00 12/23/18 09:29 Sodium Chloride Flush Syringe 10 Ml IV 10 ml BID [facility] Administration Sodium Chloride 10 ml 12/20/18 06:00 Sodium Chloride Flush Syringe 10 Ml IV PRN PRN LINE FLUSH
[2018-12-23] MEDS: KEPPRA PO SCH (22:05)
[2018-12-24 07:47] LABS: BUN/Creatinine Ratio 26; Blood Urea Nitrogen 26 mg/dL (7-17); Calcium 9.2 mg/dL (8.4-10.2); Hemolysis Index 22
[2018-12-24] MEDS: LOVENOX SUB-Q SCH (10:50)
[2018-12-24] MEDS: KEPPRA PO SCH ×2 (10:50→21:57)
[2018-12-24] MEDS: K-DUR PO SCH ×2 (10:51→21:57)
[2018-12-24] MEDS: SODIUM CHLORIDE FLUSH SYRINGE 10 ML IV SCH ×3 (10:51→21:00)
[2018-12-24] MEDS: PROTONIX PO SCH (10:51)
--- NOTE | 2018-12-24 12:01 | Progress Note ---
Assessment and Plan Acute seizure, likely from electrolytes imbalance ? - CT head negative, cont keppra, consulted neuro, seizure precaution - neuro didnot recommend any further work up Dizziness, likely from severe PHTN and diarrhea - will do PT eval, cont supplemental O2, treat diarrhea Moderate to severe PHTN - cont home O2, will consult Pulmonary CHF, ruled out with 2d echo, has preserved EF Chronic respiratory failure, likely from severe pulmonary HTN, cont supplemental O2 Hypokalemia, repleted - likely from diuretics vs diarrhea? resolved Hypomagnesemia, cont to replete and monitor, likely from diuretics vs diarrhea? resolved Hypocalcemia, repleted, elevated PTH and VitD pending hyponatremia, dehydration? - monitor BMP, RADHIKA on possible CKD, monitor renal function, consulted renal, renal US showed medical renal disease Osteoarthritis, supportive care, PT eval when stable Diarrhea, states she was having loose stool before admission for quite some time. Got better since admission but has not resolved yet. Patient does not appear toxic, will treat empirically with flagyl. stool study for any infectious etiology DVT Px, lovenox Radiological data: CXR: No acute pulmonary finding identified. Bibasilar scarring/fibrosis. CT abdomen/pelvis; There is cholelithiasis.. There are no kidney stones. There is no hydronephrosis. There is diverticulosis of the colon. There is no diverticulitis, colitis, obstruction or mass. The appendix is normal. . There is air in the bladder. There is a left-sided bladder diverticulum.. There is no ascites, free air, abscess or adenopathy.. . CT head: There is no acute intracranial abnormality. . 2D echo: EF 60-65%, moderate to severe PHTN Brief History: This is a 68 y/o female with h/o arthritis, chf, chronic respiratory failure on home o2, remote h/o seizure not on meds for 5 years presented with sudden onset of seizure like activity witnessed by the Son. There was no tonguw bite, no loss of bowel/bladder, duration of seizure unknown. In the ER patient was oriented, c/o SOB and minimal leg swelling but no chest pain and oriented X3. her lab showed mg 0.4, with low Na, K and Ca. Her CT head had no acute process. She is on torsemide at home and admits compliance with meds. She denies any N/V/D or abdominal pain. She was called fir admission for further evaluation and management. Subjective Date of service: 12/23/18 Interval history: Patient seen and examined denies any chest pain, states feels lot better, breathing better K and Mg level improved had an episode of dizziness when she was trying to get up from bed after having a sneezing with BM, family refused discharge and appealed for it Objective - Exam Narrative Exam: GENERAL: well-developed and elderly AAF lying on bed appeared to be in no discomfort. HEENT: Normocephalic. Atraumatic. No conjunctival congestion or icterus. Patient has moist mucous membranes. NECK: Supple. Trachea midline. CHEST/LUNGS: Clear to auscultated bilaterally, + bibasilar crackles or rhonchi. HEART/CARDIOVASCULAR: Regular in rate and rhythm. S1 and S2 positive. ABDOMEN: Abdomen is soft, nontender. Patient has normal bowel sounds. SKIN: There is no rash. Warm and dry. NEURO: No focal motor deficit. Follows command. MUSCULOSKELETAL: No joint effusion or tenderness. EXTRIMITY: mild edema, no cyanosis or clubbing. PSYCH: Cooperative. - Constitutional Vitals: Vital Signs - 12hr 12/24/18 12/24/18 12/24/18 00:23 00:32 08:31 Temperature 98.9 F Pulse Rate 105 H 103 H Respiratory 18 Rate Blood Pressure 117/59 106/61 O2 Sat by Pulse 95 Oximetry 12/24/18 11:42 Temperature 98.3 F Pulse Rate Respiratory 18 Rate Blood Pressure 127/63 O2 Sat by Pulse 100 Oximetry - Labs CBC & Chem 7: 12/20/18 03:06 12/24/18 06:53 Labs: Abnormal lab results 12/24/18 Range/Units 06:53 Sodium 133 L (137-145) mmol/L BUN 26 H (7-17) mg/dL Glucose 109 H (65-100) mg/dL
[2018-12-24] MEDS ORDERED: IMODIUM A-D PO PRN (12:10)
[2018-12-24] MEDS ORDERED: IMODIUM PO PRN (12:22)
[2018-12-24] MEDS: FLAGYL PO SCH ×2 (15:00→21:57)
--- NOTE | 2018-12-24 15:49 | Progress Note ---
Assessment and Plan 1. Acute kidney injury: Vasomotor RADHIKA due to volume depletion. Renal US negative for hydro. Renal function is better. Monitor renal function. Continue Patient IV fluids. Avoid nephrotoxic agents. Meds dosage based on GFR. 2. FEN: Hypomagnesemia, improved. Hypokalemia, improved. Monitor lytes. 3. Seizures. 4. H/o CHF: Echo with normal systolic and diastolic CHF. Pulmonary HTN. Subjective Date of service: 12/24/18 Interval history: Patient was seen and examined at the bedside. Doing ok. Objective - Vital Signs Vital signs: Vital Signs - 12hr 12/24/18 12/24/18 12/24/18 08:31 10:00 11:42 Temperature 98.3 F Pulse Rate 103 H Respiratory 18 Rate Blood Pressure 106/61 127/63 O2 Sat by Pulse 95 98 100 Oximetry 12/24/18 12:43 Temperature Pulse Rate Respiratory Rate Blood Pressure O2 Sat by Pulse 98 Oximetry - General Appearance General appearance: well-developed, well-nourished, appears stated age, other (not in distress) EENT: ATNC, PERRL, mucous membranes moist, hearing intact, vision intact Neck: supple Respiratory: Present: Clear to Ascultation Cardiology: regular, S1S2 Gastrointestinal: normoactive bowel sounds, no tenderness, no distended Integumentary: no rash, warm and dry Neurologic: no focal deficit, no asterixis Musculoskeletal: other (no edema) - Lab 12/20/18 03:06 12/24/18 06:53 Most recent lab results Calcium 9.2 mg/dL (8.4-10.2) 12/24/18 06:53 Phosphorus 3.10 mg/dL (2.5-4.5) 12/22/18 07:42 Magnesium 2.00 mg/dL (1.7-2.3) 12/23/18 08:05 Urine Creatinine 85.8 mg/dL (0.1-20.0) H 12/22/18 00:25 Urine Sodium 21 mmol/L 12/22/18 00:25 Medications & Allergies - Medications Allergies/Adverse Reactions: Allergies lisinopril Allergy (Verified 08/13/13 15:50) Angioedema Home Medications: Home Medications Medication Instructions Recorded Confirmed Last Taken Type Carvedilol [Coreg] 3.125 mg PO DAILY 12/20/18 12/20/18 Unknown History Iron [Iron 18 MG TAB] 18 mg PO QDAY 12/20/18 12/20/18 Unknown History Omeprazole 20 mg PO DAILY 12/20/18 12/20/18 Unknown History Potassium Chloride [K-Dur] 10 meq PO BID 12/20/18 12/20/18 Unknown History Loperamide [Imodium] 2 mg PO Q2HR PRN #10 capsule 12/23/18 Unknown Rx Magnesium Oxide [Magnesium] 200 mg PO DAILY #10 tab.chew 12/23/18 Unknown Rx levETIRAcetam [Keppra TAB] 750 mg PO BID #60 tablet 12/23/18 Unknown Rx Active Medications: Generic Name Dose Route Start Last Admin Trade Name Freq PRN Reason Stop Dose Admin Acetaminophen 650 mg 12/20/18 06:00 12/21/18 15:41 Tylenol PO 650 mg Q4H PRN Administration Pain MILD(1-3)/Fever >100.5/HURTADO Albuterol 2.5 mg 12/21/18 02:00 12/21/18 11:51 Proventil IH 2.5 mg Q4HRT PRN Administration Shortness Of Breath Enoxaparin Sodium 40 mg 12/21/18 12:00 12/24/18 10:50 Lovenox SUB-Q 40 mg QDAY@1000 BARB Administration Sodium Chloride 1,000 mls @ 50 mls/hr 12/21/18 15:00 12/22/18 21:54 Nacl 0.9% 1000 Ml IV 50 mls/hr DIRECT BARB Administration Levetiracetam 750 mg 12/23/18 22:00 12/24/18 10:50 Keppra PO 750 mg BID BARB Administration Loperamide HCl 2 mg 12/24/18 12:22 Imodium PO Q2H PRN Diarrhea Lorazepam 1 mg 12/20/18 06:07 Ativan IV Q1H PRN Seizures Metronidazole 500 mg 12/24/18 14:00 Flagyl PO Q8HR BARB Protocol Ondansetron HCl 4 mg 12/20/18 06:00 Zofran IV Q8H PRN Nausea And Vomiting Pantoprazole Sodium 20 mg 12/21/18 10:00 12/24/18 10:51 Protonix PO 20 mg QDAY BARB Administration Potassium Chloride 20 meq 12/22/18 11:32 12/24/18 10:51 K-Dur PO 20 meq BID BARB Administration Sodium Chloride 10 ml 12/20/18 10:00 12/24/18 10:54 Sodium Chloride Flush Syringe 10 Ml IV Not Given BID BARB Sodium Chloride 10 ml 12/20/18 06:00 Sodium Chloride Flush Syringe 10 Ml IV PRN PRN LINE FLUSH
--- NOTE | 2018-12-24 17:18 | Progress Note ---
Assessment and Plan Acute seizure, likely from electrolytes imbalance ? - CT head negative, cont keppra, consulted neuro, seizure precaution - neuro did not recommend any further work up Dizziness, likely from severe PHTN and diarrhea - will do PT eval, cont supplemental O2, treat diarrhea Moderate to severe PHTN - cont home O2, consulted Pulmonary CHF, ruled out with 2d echo, has preserved EF Chronic respiratory failure, likely from severe pulmonary HTN, cont supplemental O2 Hypokalemia, repleted - likely from diuretics vs diarrhea? resolved Hypomagnesemia, cont to replete and monitor, likely from diuretics vs diarrhea? resolved Hypocalcemia, repleted, elevated PTH and VitD pending hyponatremia, dehydration? - monitor BMP, RADHIKA on possible CKD, monitor renal function, consulted renal, renal US showed medical renal disease, Cr now stable Osteoarthritis, supportive care, PT eval when stable Diarrhea, states she was having loose stool before admission for quite some time. Got better since admission but has not resolved yet. Patient does not appear toxic, will treat empirically with flagyl. stool study for any infectious etiology DVT Px, lovenox Radiological data: CXR: No acute pulmonary finding identified. Bibasilar scarring/fibrosis. CT abdomen/pelvis; There is cholelithiasis.. There are no kidney stones. There is no hydronephrosis. There is diverticulosis of the colon. There is no diverticulitis, colitis, obstruction or mass. The appendix is normal. . There is air in the bladder. There is a left-sided bladder diverticulum.. There is no ascites, free air, abscess or adenopathy.. . CT head: There is no acute intracranial abnormality. . 2D echo: EF 60-65%, moderate to severe PHTN Disposition: when clears by PT Brief History: This is a 68 y/o female with h/o arthritis, chf, chronic respiratory failure on home o2, remote h/o seizure not on meds for 5 years presented with sudden onset of seizure like activity witnessed by the Son. There was no tonguw bite, no loss of bowel/bladder, duration of seizure unknown. In the ER patient was oriented, c/o SOB and minimal leg swelling but no chest pain and oriented X3. her lab showed mg 0.4, with low Na, K and Ca. Her CT head had no acute process. She is on torsemide at home and admits compliance with meds. She denies any N/V/D or abdominal pain. She was called for admission for further evaluation and management. Subjective Date of service: 12/24/18 Interval history: Patient seen and examined had an episode of dizziness when she was trying to get up from bed after having a sneezing with BM, family refused discharge and appealed for it yesterday denies any chest pain, states feels better, but still has diarrhea K and Mg level improved discussed with patient's Son and daughter at the bedside Objective - Exam Narrative Exam: GENERAL: well-developed and elderly AAF lying on bed appeared to be in no discomfort. HEENT: Normocephalic. Atraumatic. No conjunctival congestion or icterus. Patient has moist mucous membranes. NECK: Supple. Trachea midline. CHEST/LUNGS: Clear to auscultated bilaterally, + bibasilar crackles or rhonchi. HEART/CARDIOVASCULAR: Regular in rate and rhythm. S1 and S2 positive. ABDOMEN: Abdomen is soft, nontender. Patient has normal bowel sounds. SKIN: There is no rash. Warm and dry. NEURO: No focal motor deficit. Follows command. MUSCULOSKELETAL: No joint effusion or tenderness. EXTRIMITY: mild edema, no cyanosis or clubbing. PSYCH: Cooperative. - Constitutional Vitals: Vital Signs - 12hr 12/24/18 12/24/18 12/24/18 08:31 10:00 11:42 Temperature 98.3 F Pulse Rate 103 H Respiratory 18 Rate Blood Pressure 106/61 127/63 O2 Sat by Pulse 95 98 100 Oximetry 12/24/18 12/24/18 12:43 16:39 Temperature 98.3 F Pulse Rate 93 H Respiratory 20 Rate Blood Pressure 109/65 O2 Sat by Pulse 98 96 Oximetry - Labs CBC & Chem 7: 12/20/18 03:06 12/24/18 06:53 Labs: Abnormal lab results 12/24/18 Range/Units 06:53 Sodium 133 L (137-145) mmol/L BUN 26 H (7-17) mg/dL Glucose 109 H (65-100) mg/dL
--- NOTE | 2018-12-24 19:30 | Consultation ---
History of Present Illness Consult date: 12/24/18 History of present illness: PULMONARY AND CRITICAL CARE CONSULTATION. DR. MOJICA THANK YOU FOR ASKING US TO PARTICIPATE IN THE CARE OF THIS PATIENT. This is a 68 y/o female with h/o arthritis, chf, chronic respiratory failure on home o2, remote h/o seizure not on meds for 5 years presented with sudden onset of seizure like activity witnessed by the Son. There was no tongue bite, no loss of bowel/bladder, duration of seizure unknown. In the ER patient was oriented, c/o SOB and minimal leg swelling but no chest pain and oriented X3. Her CT head had no acute process. She is on torsemide at home and admits compliance with meds. She denies any N/V/D or abdominal pain. Patient sleeping on 2 litres O2.O2 saturation 91%. Unable to obtain furthur history at this time. Past History Past Medical History: heart failure, hyperlipidemia, seizures Medications and Allergies Allergies Allergy/AdvReac Type Severity Reaction Status Date / Time lisinopril Allergy Angioedema Verified 08/13/13 15:50 Home Medications Medication Instructions Recorded Confirmed Last Taken Type Carvedilol [Coreg] 3.125 mg PO DAILY 12/20/18 12/20/18 Unknown History Iron [Iron 18 MG TAB] 18 mg PO QDAY 12/20/18 12/20/18 Unknown History Omeprazole 20 mg PO DAILY 12/20/18 12/20/18 Unknown History Potassium Chloride [K-Dur] 10 meq PO BID 12/20/18 12/20/18 Unknown History Loperamide [Imodium] 2 mg PO Q2HR PRN #10 capsule 12/23/18 Unknown Rx Magnesium Oxide [Magnesium] 200 mg PO DAILY #10 tab.chew 12/23/18 Unknown Rx levETIRAcetam [Keppra TAB] 750 mg PO BID #60 tablet 12/23/18 Unknown Rx Active Meds: Active Medications Acetaminophen (Tylenol) 650 mg PO Q4H PRN PRN Reason: Pain MILD(1-3)/Fever >100.5/HURTADO Last Admin: 12/21/18 15:41 Dose: 650 mg Documented by: Albuterol (Proventil) 2.5 mg IH Q4HRT PRN PRN Reason: Shortness Of Breath Last Admin: 12/21/18 11:51 Dose: 2.5 mg Documented by: Enoxaparin Sodium (Lovenox) 40 mg SUB-Q QDAY@1000 [facility] Last Admin: 12/24/18 10:50 Dose: 40 mg Documented by: Sodium Chloride (Nacl 0.9% 1000 Ml) 1,000 mls @ 50 mls/hr IV DIRECT [facility] Last Admin: 12/22/18 21:54 Dose: 50 mls/hr Documented by: Levetiracetam (Keppra) 750 mg PO BID [facility] Last Admin: 12/24/18 10:50 Dose: 750 mg Documented by: Loperamide HCl (Imodium) 2 mg PO Q2H PRN PRN Reason: Diarrhea Lorazepam (Ativan) 1 mg IV Q1H PRN PRN Reason: Seizures Metronidazole (Flagyl) 500 mg PO Q8HR [facility]; Protocol Last Admin: 12/24/18 15:00 Dose: 500 mg Documented by: Ondansetron HCl (Zofran) 4 mg IV Q8H PRN PRN Reason: Nausea And Vomiting Pantoprazole Sodium (Protonix) 20 mg PO QDAY [facility] Last Admin: 12/24/18 10:51 Dose: 20 mg Documented by: Potassium Chloride (K-Dur) 20 meq PO BID [facility] Last Admin: 12/24/18 10:51 Dose: 20 meq Documented by: Sodium Chloride (Sodium Chloride Flush Syringe 10 Ml) 10 ml IV BID [facility] Last Admin: 12/24/18 10:54 Dose: Not Given Documented by: Sodium Chloride (Sodium Chloride Flush Syringe 10 Ml) 10 ml IV PRN PRN PRN Reason: LINE FLUSH Review of Systems All systems: negative Physical Examination Vital signs: Vital Signs Temp 97.7 F 12/20/18 02:27 General appearance: no acute distress, asleep Eyes: non-icteric Neck: supple, no JVD Ascultation: Bilateral: diminished breath sounds Cardiovascular: regular rate and rhythm Gastrointestinal: normoactive bowel sounds, soft Integumentary: normal Extremities: no cyanosis, no edema Musculoskeletal: no deformities Gait: other (Unable to assess now.) other (Patient is in deep sleep at this time.) other (Patient sleeping at this time.) Results - Laboratory Findings CBC and BMP: 12/20/18 03:06 12/25/18 06:09 PT/INR, D-dimer PT 15.1 Sec. (12.2-14.9) H 12/20/18 03:06 INR 1.12 (0.87-1.13) 12/20/18 03:06 Abnormal lab findings: Abnormal Labs 12/20/18 12/20/18 12/20/18 02:00 03:06 03:06 WBC 14.4 H RBC 3.55 L RDW 19.9 H PT 15.1 H Sodium Potassium Chloride BUN Creatinine Glucose Calcium Magnesium Total Creatine Kinase NT-Pro-B Natriuret Pep Albumin PTH Intact U Epithel Cells (Auto) 17.0 H Urine Creatinine 12/20/18 12/20/18 12/21/18 03:06 07:39 06:08 WBC RBC RDW PT Sodium 129 L 130 L Potassium 3.0 L Chloride 86.1 L 88.9 L BUN 35 H 43 H Creatinine 1.4 H 1.6 H Glucose 125 H 131 H Calcium 6.0 L 6.3 L Magnesium 0.40 L* 1.00 L 1.00 L Total Creatine Kinase 238 H NT-Pro-B Natriuret Pep 73004 H Albumin 2.8 L PTH Intact U Epithel Cells (Auto) Urine Creatinine 12/22/18 12/22/18 12/22/18 00:25 07:42 07:42 WBC RBC RDW PT Sodium 131 L Potassium 3.3 L Chloride 91.8 L BUN 41 H Creatinine 1.4 H Glucose 118 H Calcium 7.3 L D Magnesium 1.60 L Total Creatine Kinase NT-Pro-B Natriuret Pep Albumin PTH Intact 186.9 H U Epithel Cells (Auto) Urine Creatinine 85.8 H 12/23/18 12/24/18 08:05 06:53 WBC RBC RDW PT Sodium 133 L 133 L Potassium Chloride 97.3 L BUN 31 H 26 H Creatinine Glucose 102 H 109 H Calcium Magnesium Total Creatine Kinase NT-Pro-B Natriuret Pep Albumin PTH Intact U Epithel Cells (Auto) Urine Creatinine - Diagnostic Findings Chest x-ray: report reviewed (BIBASILAR SCARRING AND FIBROSIS.), image reviewed Assessment and Plan his is a 68 y/o female with h/o arthritis, chf, chronic respiratory failure on home o2, remote h/o seizure not on meds for 5 years presented with sudden onset of seizure like activity witnessed by the Son. There was no tongue bite, no loss of bowel/bladder, duration of seizure unknown. In the ER patient was oriented, c/o SOB and minimal leg swelling but no chest pain and oriented X3. Her CT head had no acute process. She is on torsemide at home and admits compliance with meds. She denies any N/V/D or abdominal pain. Patient sleeping on 2 litres O2.O2 saturation 91%. Unable to obtain furthur history at this time. - Patient Problems (1) Fluid overload Current Visit: Yes Status: Acute Plan to address problem: Reduce I/V fluids. (2) Breakthrough seizure Current Visit: Yes Status: Acute Plan to address problem: Patient is on Keppra and Lorazepam (3) Pulmonary fibrosis Current Visit: Yes Status: Acute Plan to address problem: Bibasilar scarring and fibrosis. Recommend CAT scan of chest.
[2018-12-25] MEDS: FLAGYL PO SCH ×3 (05:11→22:49)
[2018-12-25 07:01] LABS: BUN/Creatinine Ratio 29; Blood Urea Nitrogen 26 mg/dL (7-17); Calcium 9.4 mg/dL (8.4-10.2); Hemolysis Index 2
[2018-12-25] MEDS: KEPPRA PO SCH ×2 (10:53→22:49)
[2018-12-25] MEDS: LOVENOX SUB-Q SCH (10:54)
[2018-12-25] MEDS: K-DUR PO SCH (10:54)
[2018-12-25] MEDS: SODIUM CHLORIDE FLUSH SYRINGE 10 ML IV SCH ×2 (10:54→22:49)
[2018-12-25] MEDS: PROTONIX PO SCH ×2 (10:54→14:56)
--- NOTE | 2018-12-25 11:32 | Progress Note ---
Assessment and Plan 1. Acute kidney injury: Vasomotor RADHIKA due to volume depletion. Renal US negative for hydro. Renal function is better. Monitor renal function. Avoid nephrotoxic agents. Meds dosage based on GFR. 2. FEN: Hypomagnesemia, replete Mg. Hypokalemia, improved. Monitor lytes. 3. Seizures. 4. H/o CHF: Echo with normal systolic and diastolic CHF. Pulmonary HTN. Subjective Date of service: 12/25/18 Interval history: Patient was seen and examined at the bedside. Doing ok. Objective - Vital Signs Vital signs: Vital Signs - 12hr 12/25/18 12/25/18 12/25/18 04:53 09:14 09:16 Temperature 98.0 F 98.3 F Pulse Rate 96 H 87 Respiratory 18 18 Rate Blood Pressure 106/63 112/63 O2 Sat by Pulse 95 100 Oximetry - General Appearance General appearance: well-developed, well-nourished, appears stated age, other (not in distress) EENT: ATNC, PERRL, hearing intact, vision intact Neck: supple Respiratory: Present: Clear to Ascultation Cardiology: regular, S1S2, no murmurs Gastrointestinal: normoactive bowel sounds, no tenderness, no distended Integumentary: no rash, warm and dry Neurologic: no focal deficit, no asterixis Musculoskeletal: other (no edema) - Lab 12/20/18 03:06 12/25/18 06:09 Most recent lab results Calcium 9.4 mg/dL (8.4-10.2) 12/25/18 06:09 Phosphorus 3.10 mg/dL (2.5-4.5) 12/22/18 07:42 Magnesium 1.30 mg/dL (1.7-2.3) L 12/25/18 06:09 Urine Creatinine 85.8 mg/dL (0.1-20.0) H 12/22/18 00:25 Urine Sodium 21 mmol/L 12/22/18 00:25 Medications & Allergies - Medications Allergies/Adverse Reactions: Allergies lisinopril Allergy (Verified 08/13/13 15:50) Angioedema Home Medications: Home Medications Medication Instructions Recorded Confirmed Last Taken Type Carvedilol [Coreg] 3.125 mg PO DAILY 12/20/18 12/20/18 Unknown History Iron [Iron 18 MG TAB] 18 mg PO QDAY 12/20/18 12/20/18 Unknown History Omeprazole 20 mg PO DAILY 12/20/18 12/20/18 Unknown History Potassium Chloride [K-Dur] 10 meq PO BID 12/20/18 12/20/18 Unknown History Loperamide [Imodium] 2 mg PO Q2HR PRN #10 capsule 12/23/18 Unknown Rx Magnesium Oxide [Magnesium] 200 mg PO DAILY #10 tab.chew 12/23/18 Unknown Rx levETIRAcetam [Keppra TAB] 750 mg PO BID #60 tablet 12/23/18 Unknown Rx Active Medications: Generic Name Dose Route Start Last Admin Trade Name Freq PRN Reason Stop Dose Admin Acetaminophen 650 mg 12/20/18 06:00 12/21/18 15:41 Tylenol PO 650 mg Q4H PRN Administration Pain MILD(1-3)/Fever >100.5/HURTADO Albuterol 2.5 mg 12/21/18 02:00 12/21/18 11:51 Proventil IH 2.5 mg Q4HRT PRN Administration Shortness Of Breath Enoxaparin Sodium 40 mg 12/21/18 12:00 12/25/18 10:54 Lovenox SUB-Q 40 mg QDAY@1000 BARB Administration Sodium Chloride 1,000 mls @ 50 mls/hr 12/21/18 15:00 12/22/18 21:54 Nacl 0.9% 1000 Ml IV 50 mls/hr DIRECT BARB Administration Levetiracetam 750 mg 12/23/18 22:00 12/25/18 10:53 Keppra PO 750 mg BID BARB Administration Loperamide HCl 2 mg 12/24/18 12:22 Imodium PO Q2H PRN Diarrhea Lorazepam 1 mg 12/20/18 06:07 Ativan IV Q1H PRN Seizures Metronidazole 500 mg 12/24/18 14:00 12/25/18 05:11 Flagyl PO 500 mg Q8HR BARB Administration Protocol Ondansetron HCl 4 mg 12/20/18 06:00 Zofran IV Q8H PRN Nausea And Vomiting Pantoprazole Sodium 20 mg 12/21/18 10:00 12/25/18 10:54 Protonix PO 20 mg QDAY BARB Administration Potassium Chloride 20 meq 12/22/18 11:32 12/25/18 10:54 K-Dur PO Not Given BID BARB Sodium Chloride 10 ml 12/20/18 10:00 12/25/18 10:54 Sodium Chloride Flush Syringe 10 Ml IV 10 ml BID BARB Administration Sodium Chloride 10 ml 12/20/18 06:00 Sodium Chloride Flush Syringe 10 Ml IV PRN PRN LINE FLUSH
[2018-12-25] MEDS ORDERED: MAGNESIUM SULFATE 4GM/100ML 4 GM/100 ML BAG IV NR (12:00)
--- NOTE | 2018-12-25 13:43 | Progress Note ---
Assessment and Plan Acute seizure, likely from electrolytes imbalance ? - CT head negative, cont keppra, consulted neuro, seizure precaution - neuro did not recommend any further work up Dizziness, likely from severe PHTN and diarrhea - PT recommended GEE, cont supplemental O2, treat diarrhea Moderate to severe PHTN - cont home O2, consulted Pulmonary CHF, ruled out with 2d echo, has preserved EF Chronic respiratory failure, likely from severe pulmonary HTN, cont supplemental O2 Hypokalemia, repleted - likely from diuretics vs diarrhea? resolved Hypomagnesemia, cont to replete and monitor, likely from diuretics vs diarrhea? Hypocalcemia, repleted, elevated PTH and VitD pending hyponatremia, dehydration? - monitor BMP, RADHIKA on possible CKD, monitor renal function, consulted renal, renal US showed medical renal disease, Cr now stable Osteoarthritis, supportive care, PT eval when stable Diarrhea, states she was having loose stool before admission for quite some time. Got better since admission but has not completely resolved yet. Patient does not appear toxic, will cont to treat empirically with flagyl. stool study ordered for any infectious etiology DVT Px, lovenox Radiological data: CXR: No acute pulmonary finding identified. Bibasilar scarring/fibrosis. CT abdomen/pelvis; There is cholelithiasis.. There are no kidney stones. There is no hydronephrosis. There is diverticulosis of the colon. There is no diverticulitis, colitis, obstruction or mass. The appendix is normal. . There is air in the bladder. There is a left-sided bladder diverticulum.. There is no ascites, free air, abscess or adenopathy.. . CT head: There is no acute intracranial abnormality. . 2D echo: EF 60-65%, moderate to severe PHTN Disposition: Need GEE/SNF Brief History: This is a 68 y/o female with h/o arthritis, chf, chronic respiratory failure on home o2, remote h/o seizure not on meds for 5 years presented with sudden onset of seizure like activity witnessed by the Son. There was no tonguw bite, no loss of bowel/bladder, duration of seizure unknown. In the ER patient was oriented, c/o SOB and minimal leg swelling but no chest pain and oriented X3. her lab showed mg 0.4, with low Na, K and Ca. Her CT head had no acute process. She is on torsemide at home and admits compliance with meds. She denies any N/V/D or abdominal pain. She was called for admission for further evaluation and management. Subjective Date of service: 12/25/18 Interval history: Patient seen and examined denies any chest pain, states feels better, Mg level dropped today discussed with patient at the bedside Objective - Exam Narrative Exam: GENERAL: well-developed and elderly AAF lying on bed appeared to be in no discomfort. HEENT: Normocephalic. Atraumatic. No conjunctival congestion or icterus. Patient has moist mucous membranes. NECK: Supple. Trachea midline. CHEST/LUNGS: + bibasilar crackles or rhonchi. HEART/CARDIOVASCULAR: Regular in rate and rhythm. S1 and S2 positive. ABDOMEN: Abdomen is soft, nontender. Patient has normal bowel sounds. SKIN: There is no rash. Warm and dry. NEURO: No focal motor deficit. Follows command. MUSCULOSKELETAL: No joint effusion or tenderness. EXTRIMITY: mild edema, no cyanosis or clubbing. PSYCH: Cooperative. - Constitutional Vitals: Vital Signs - 12hr 12/25/18 12/25/18 12/25/18 04:53 09:14 09:16 Temperature 98.0 F 98.3 F Pulse Rate 96 H 87 Respiratory 18 18 Rate Blood Pressure 106/63 112/63 O2 Sat by Pulse 95 100 Oximetry - Labs CBC & Chem 7: 12/20/18 03:06 12/25/18 06:09 Labs: Abnormal lab results 12/25/18 Range/Units 06:09 BUN 26 H (7-17) mg/dL Glucose 104 H (65-100) mg/dL Magnesium 1.30 L (1.7-2.3) mg/dL
--- NOTE | 2018-12-25 21:04 | Progress Note ---
Assessment and Plan atient sleeping. Not responding to verbal stimuli.Not using O2 as recommended.Patient presently on room air. O2 saturation 92%.Recommend O2 2 litres via nasal canula. - Patient Problems (1) Fluid overload Current Visit: Yes Status: Acute Plan to address problem: Reduce I/V fluids. (2) Breakthrough seizure Current Visit: Yes Status: Acute Plan to address problem: Patient is on Keppra and Lorazepam (3) Pulmonary fibrosis Current Visit: Yes Status: Acute Plan to address problem: Bibasilar scarring and fibrosis. Recommend CAT scan of chest. Subjective Date of service: 12/25/18 Interval history: Patient sleeping. Not responding to verbal stimuli.Not using O2 as recom mended.Patient presently on room air. O2 saturation 92%.Recommend O2 2 litres via nasal canula. Objective Vital Signs - 12hr 12/25/18 12/25/18 12/25/18 09:14 09:16 12:07 Temperature 98.3 F Pulse Rate 87 94 H Respiratory 18 20 Rate Blood Pressure 112/63 127/65 O2 Sat by Pulse 100 99 Oximetry 12/25/18 12/25/18 12/25/18 17:33 17:34 19:15 Temperature 98.7 F 98.6 F Pulse Rate 95 H 101 H Respiratory 18 12 Rate Blood Pressure 117/63 106/49 O2 Sat by Pulse 98 92 Oximetry Constitutional: no acute distress, asleep Eyes: non-icteric ENT: oropharynx moist Neck: supple, no JVD Ascultation: Bilateral: diminished breath sounds Cardiovascular: regular rate and rhythm Gastrointestinal: normoactive bowel sounds, soft Integumentary: normal Extremities: no cyanosis, no edema Neurologic: other (Patient is in deep sleep at this time.) Psychiatric: other (Patient sleeping at this time.) CBC and BMP: 12/20/18 03:06 12/25/18 06:09 ABG, PT/INR, D-dimer: ABG POC ABG pH 7.359 (7.35-7.45) 12/25/18 14:23 POC ABG pCO2 42.6 (35-45) 12/25/18 14:23 POC ABG pO2 65 (80-105) L 12/25/18 14:23 POC ABG HCO3 24.0 (22-26 mml/L) 12/25/18 14:23 POC ABG Total CO2 25 (23-27mmol/L) 12/25/18 14:23 POC ABG O2 Sat 92 12/25/18 14:23 PT/INR, D-dimer PT 15.1 Sec. (12.2-14.9) H 12/20/18 03:06 INR 1.12 (0.87-1.13) 12/20/18 03:06 Abnormal lab findings: Abnormal Labs 12/20/18 12/20/18 12/20/18 02:00 03:06 03:06 WBC 14.4 H RBC 3.55 L RDW 19.9 H PT 15.1 H POC ABG pO2 Sodium Potassium Chloride BUN Creatinine Glucose Calcium Magnesium Total Creatine Kinase NT-Pro-B Natriuret Pep Albumin PTH Intact U Epithel Cells (Auto) 17.0 H Urine Creatinine 12/20/18 12/20/18 12/21/18 03:06 07:39 06:08 WBC RBC RDW PT POC ABG pO2 Sodium 129 L 130 L Potassium 3.0 L Chloride 86.1 L 88.9 L BUN 35 H 43 H Creatinine 1.4 H 1.6 H Glucose 125 H 131 H Calcium 6.0 L 6.3 L Magnesium 0.40 L* 1.00 L 1.00 L Total Creatine Kinase 238 H NT-Pro-B Natriuret Pep 06897 H Albumin 2.8 L PTH Intact U Epithel Cells (Auto) Urine Creatinine 12/22/18 12/22/18 12/22/18 00:25 07:42 07:42 WBC RBC RDW PT POC ABG pO2 Sodium 131 L Potassium 3.3 L Chloride 91.8 L BUN 41 H Creatinine 1.4 H Glucose 118 H Calcium 7.3 L D Magnesium 1.60 L Total Creatine Kinase NT-Pro-B Natriuret Pep Albumin PTH Intact 186.9 H U Epithel Cells (Auto) Urine Creatinine 85.8 H 12/23/18 12/24/18 12/25/18 08:05 06:53 06:09 WBC RBC RDW PT POC ABG pO2 Sodium 133 L 133 L Potassium Chloride 97.3 L BUN 31 H 26 H 26 H Creatinine Glucose 102 H 109 H 104 H Calcium Magnesium 1.30 L Total Creatine Kinase NT-Pro-B Natriuret Pep Albumin PTH Intact U Epithel Cells (Auto) Urine Creatinine 12/25/18 14:23 WBC RBC RDW PT POC ABG pO2 65 L Sodium Potassium Chloride BUN Creatinine Glucose Calcium Magnesium Total Creatine Kinase NT-Pro-B Natriuret Pep Albumin PTH Intact U Epithel Cells (Auto) Urine Creatinine
[2018-12-26] MEDS: FLAGYL PO SCH ×3 (05:18→21:36)
[2018-12-26 08:31] LABS: BUN/Creatinine Ratio 26; Blood Urea Nitrogen 21 mg/dL (7-17); Calcium 9.4 mg/dL (8.4-10.2); Hemolysis Index 0
[2018-12-26] MEDS: LOVENOX SUB-Q SCH (09:47)
[2018-12-26] MEDS: KEPPRA PO SCH ×2 (09:47→21:36)
[2018-12-26] MEDS: PROTONIX PO SCH (09:47)
[2018-12-26] MEDS: MAG-OX PO SCH ×2 (09:57→21:36)
[2018-12-26] MEDS ORDERED: MAGNESIUM SULFATE 2GM/50ML 2 GM/50 ML BAG IV ONE (10:30)
--- NOTE | 2018-12-26 11:50 | Progress Note ---
Assessment and Plan 1. Acute kidney injury: Vasomotor RADHIKA due to volume depletion. Renal US negative for hydro. Renal function is better. Monitor renal function. Avoid nephrotoxic agents. Meds dosage based on GFR. 2. FEN: Hypomagnesemia, replete Mg. Hypokalemia, improved. Monitor lytes. 3. Seizures. 4. H/o CHF: Echo with normal systolic and diastolic CHF. Pulmonary HTN. Subjective Date of service: 12/26/18 Interval history: Patient was seen and examined at the bedside. Doing ok. Objective - Vital Signs Vital signs: Vital Signs - 12hr 12/26/18 12/26/18 12/26/18 03:32 08:48 10:34 Temperature 98.7 F 98.2 F Pulse Rate 89 83 Respiratory 12 20 Rate Blood Pressure 98/48 105/58 O2 Sat by Pulse 98 99 Oximetry - General Appearance General appearance: well-developed, well-nourished, appears stated age, other (not in distress) EENT: ATNC, PERRL, mucous membranes moist, hearing intact, vision intact Neck: supple Cardiology: regular, S1S2, no murmurs Gastrointestinal: normoactive bowel sounds, no distended Integumentary: no rash, warm and dry Neurologic: no focal deficit, no asterixis, alert and oriented x3 Musculoskeletal: other (no edema) - Lab 12/20/18 03:06 12/26/18 07:12 Most recent lab results Calcium 9.4 mg/dL (8.4-10.2) 12/26/18 07:12 Phosphorus 3.10 mg/dL (2.5-4.5) 12/22/18 07:42 Magnesium 1.60 mg/dL (1.7-2.3) L 12/26/18 07:12 Urine Creatinine 85.8 mg/dL (0.1-20.0) H 12/22/18 00:25 Urine Sodium 21 mmol/L 12/22/18 00:25 Medications & Allergies - Medications Allergies/Adverse Reactions: Allergies lisinopril Allergy (Verified 08/13/13 15:50) Angioedema Home Medications: Home Medications Medication Instructions Recorded Confirmed Last Taken Type Carvedilol [Coreg] 3.125 mg PO DAILY 12/20/18 12/20/18 Unknown History Iron [Iron 18 MG TAB] 18 mg PO QDAY 12/20/18 12/20/18 Unknown History Omeprazole 20 mg PO DAILY 12/20/18 12/20/18 Unknown History Potassium Chloride [K-Dur] 10 meq PO BID 12/20/18 12/20/18 Unknown History Loperamide [Imodium] 2 mg PO Q2HR PRN #10 capsule 12/23/18 Unknown Rx Magnesium Oxide [Magnesium] 200 mg PO DAILY #10 tab.chew 12/23/18 Unknown Rx levETIRAcetam [Keppra TAB] 750 mg PO BID #60 tablet 12/23/18 Unknown Rx Active Medications: Generic Name Dose Route Start Last Admin Trade Name Freq PRN Reason Stop Dose Admin Acetaminophen 650 mg 12/20/18 06:00 12/21/18 15:41 Tylenol PO 650 mg Q4H PRN Administration Pain MILD(1-3)/Fever >100.5/HURTADO Albuterol 2.5 mg 12/21/18 02:00 12/21/18 11:51 Proventil IH 2.5 mg Q4HRT PRN Administration Shortness Of Breath Enoxaparin Sodium 40 mg 12/21/18 12:00 12/26/18 09:47 Lovenox SUB-Q 40 mg QDAY@1000 BARB Administration Magnesium Sulfate 2 gm in 50 mls @ 25 mls/hr 12/26/18 10:30 12/26/18 10:21 Magnesium Sulfate 2gm/50ml IV 12/26/18 12:29 25 mls/hr ONCE ONE Administration Levetiracetam 750 mg 12/23/18 22:00 12/26/18 09:47 Keppra PO 750 mg BID BARB Administration Loperamide HCl 2 mg 12/24/18 12:22 Imodium PO Q2H PRN Diarrhea Lorazepam 1 mg 12/20/18 06:07 Ativan IV Q1H PRN Seizures Magnesium Oxide 400 mg 12/26/18 10:00 12/26/18 09:57 Mag-Ox PO 400 mg BID BARB Administration Metronidazole 500 mg 12/24/18 14:00 12/26/18 05:18 Flagyl PO 500 mg Q8HR BARB Administration Protocol Ondansetron HCl 4 mg 12/20/18 06:00 Zofran IV Q8H PRN Nausea And Vomiting Pantoprazole Sodium 40 mg 12/25/18 14:00 12/26/18 09:47 Protonix PO 40 mg QDAY BARB Administration Sodium Chloride 10 ml 12/20/18 10:00 12/25/18 22:49 Sodium Chloride Flush Syringe 10 Ml IV 10 ml BID BARB Administration Sodium Chloride 10 ml 12/20/18 06:00 Sodium Chloride Flush Syringe 10 Ml IV PRN PRN LINE FLUSH
--- NOTE | 2018-12-26 13:32 | Progress Note ---
Assessment and Plan Patient awake and resting on room air. O2 saturation 87%.Recommend O2 2 litres via nasal canula.No complaint of chest pain,shortness of breath and cough. - Patient Problems (1) Fluid overload Current Visit: Yes Status: Acute Plan to address problem: Reduce I/V fluids. (2) Breakthrough seizure Current Visit: Yes Status: Acute Plan to address problem: Patient is on Keppra and Lorazepam (3) Pulmonary fibrosis Current Visit: Yes Status: Acute Plan to address problem: Bibasilar scarring and fibrosis. Recommend CAT scan of chest. Subjective Date of service: 12/26/18 Interval history: Patient awake and resting on room air. O2 saturation 87%.Recommend O2 2 litres via nasal canula.No complaint of chest pain,shortness of breath and cough. Objective Vital Signs - 12hr 12/26/18 12/26/18 12/26/18 03:32 08:48 10:34 Temperature 98.7 F 98.2 F Pulse Rate 89 83 Respiratory 12 20 Rate Blood Pressure 98/48 105/58 O2 Sat by Pulse 98 99 Oximetry Constitutional: no acute distress, alert, asleep Eyes: non-icteric ENT: oropharynx moist Neck: supple, no JVD Ascultation: Bilateral: diminished breath sounds Cardiovascular: regular rate and rhythm Gastrointestinal: normoactive bowel sounds, soft Integumentary: normal Extremities: no cyanosis, no edema Neurologic: normal mental status, non-focal exam, pupils equal and round, CN II- XII normal Psychiatric: other (Patient sleeping at this time.) CBC and BMP: 12/20/18 03:06 12/26/18 07:12 ABG, PT/INR, D-dimer: ABG POC ABG pH 7.359 (7.35-7.45) 12/25/18 14:23 POC ABG pCO2 42.6 (35-45) 12/25/18 14:23 POC ABG pO2 65 (80-105) L 12/25/18 14:23 POC ABG HCO3 24.0 (22-26 mml/L) 12/25/18 14:23 POC ABG Total CO2 25 (23-27mmol/L) 12/25/18 14:23 POC ABG O2 Sat 92 12/25/18 14:23 PT/INR, D-dimer PT 15.1 Sec. (12.2-14.9) H 12/20/18 03:06 INR 1.12 (0.87-1.13) 12/20/18 03:06 Abnormal lab findings: Abnormal Labs 12/20/18 12/20/18 12/20/18 02:00 03:06 03:06 WBC 14.4 H RBC 3.55 L RDW 19.9 H PT 15.1 H POC ABG pO2 Sodium Potassium Chloride BUN Creatinine Glucose Calcium Magnesium Total Creatine Kinase NT-Pro-B Natriuret Pep Albumin PTH Intact U Epithel Cells (Auto) 17.0 H Urine Creatinine 12/20/18 12/20/18 12/21/18 03:06 07:39 06:08 WBC RBC RDW PT POC ABG pO2 Sodium 129 L 130 L Potassium 3.0 L Chloride 86.1 L 88.9 L BUN 35 H 43 H Creatinine 1.4 H 1.6 H Glucose 125 H 131 H Calcium 6.0 L 6.3 L Magnesium 0.40 L* 1.00 L 1.00 L Total Creatine Kinase 238 H NT-Pro-B Natriuret Pep 58054 H Albumin 2.8 L PTH Intact U Epithel Cells (Auto) Urine Creatinine 12/22/18 12/22/18 12/22/18 00:25 07:42 07:42 WBC RBC RDW PT POC ABG pO2 Sodium 131 L Potassium 3.3 L Chloride 91.8 L BUN 41 H Creatinine 1.4 H Glucose 118 H Calcium 7.3 L D Magnesium 1.60 L Total Creatine Kinase NT-Pro-B Natriuret Pep Albumin PTH Intact 186.9 H U Epithel Cells (Auto) Urine Creatinine 85.8 H 12/23/18 12/24/18 12/25/18 08:05 06:53 06:09 WBC RBC RDW PT POC ABG pO2 Sodium 133 L 133 L Potassium Chloride 97.3 L BUN 31 H 26 H 26 H Creatinine Glucose 102 H 109 H 104 H Calcium Magnesium 1.30 L Total Creatine Kinase NT-Pro-B Natriuret Pep Albumin PTH Intact U Epithel Cells (Auto) Urine Creatinine 12/25/18 12/26/18 14:23 07:12 WBC RBC RDW PT POC ABG pO2 65 L Sodium 135 L Potassium Chloride BUN 21 H Creatinine Glucose 104 H Calcium Magnesium 1.60 L Total Creatine Kinase NT-Pro-B Natriuret Pep Albumin PTH Intact U Epithel Cells (Auto) Urine Creatinine
--- NOTE | 2018-12-26 13:36 | Progress Note ---
Assessment and Plan Acute seizure, likely from electrolytes imbalance ? - CT head negative, cont keppra, consulted neuro, seizure precaution - neuro did not recommend any further work up Dizziness, likely from severe PHTN and diarrhea - PT recommended GEE, cont supplemental O2, treat diarrhea Moderate to severe PHTN - cont home O2, consulted Pulmonary CHF, ruled out with 2d echo, has preserved EF Chronic respiratory failure, likely from severe pulmonary HTN, cont supplemental O2 Hypokalemia, repleted - likely from diuretics vs diarrhea? resolved Hypomagnesemia, cont to replete and monitor, likely from diuretics vs diarrhea? Hypocalcemia, repleted, elevated PTH and VitD pending hyponatremia, dehydration? - monitor BMP, RADHIKA on possible CKD, monitor renal function, consulted renal, renal US showed medical renal disease, Cr now stable Osteoarthritis, supportive care, PT eval when stable Diarrhea, states she was having loose stool before admission for quite some time. Got better since admission but has not completely resolved yet. Patient does not appear toxic, will cont to treat empirically with flagyl. stool study ordered for any infectious etiology DVT Px, lovenox Radiological data: CXR: No acute pulmonary finding identified. Bibasilar scarring/fibrosis. CT abdomen/pelvis; There is cholelithiasis.. There are no kidney stones. There is no hydronephrosis. There is diverticulosis of the colon. There is no diverticulitis, colitis, obstruction or mass. The appendix is normal. . There is air in the bladder. There is a left-sided bladder diverticulum.. There is no ascites, free air, abscess or adenopathy.. . CT head: There is no acute intracranial abnormality. . 2D echo: EF 60-65%, moderate to severe PHTN Disposition: Need GEE/SNF Brief History: This is a 68 y/o female with h/o arthritis, chf, chronic respiratory failure on home o2, remote h/o seizure not on meds for 5 years presented with sudden onset of seizure like activity witnessed by the Son. There was no tonguw bite, no loss of bowel/bladder, duration of seizure unknown. In the ER patient was oriented, c/o SOB and minimal leg swelling but no chest pain and oriented X3. her lab showed mg 0.4, with low Na, K and Ca. Her CT head had no acute process. She is on torsemide at home and admits compliance with meds. She denies any N/V/D or abdominal pain. She was called for admission for further evaluation and management. Subjective Date of service: 12/26/18 Interval history: Patient seen and examined denies any chest pain, states feels better, Mg level still low discussed with patient at the bedside Objective - Exam Narrative Exam: GENERAL: well-developed and elderly AAF lying on bed appeared to be in no discomfort. HEENT: Normocephalic. Atraumatic. No conjunctival congestion or icterus. Patient has moist mucous membranes. NECK: Supple. Trachea midline. CHEST/LUNGS: + bibasilar crackles or rhonchi. HEART/CARDIOVASCULAR: Regular in rate and rhythm. S1 and S2 positive. ABDOMEN: Abdomen is soft, nontender. Patient has normal bowel sounds. SKIN: There is no rash. Warm and dry. NEURO: No focal motor deficit. Follows command. MUSCULOSKELETAL: No joint effusion or tenderness. EXTRIMITY: mild edema, no cyanosis or clubbing. PSYCH: Cooperative. - Constitutional Vitals: Vital Signs - 12hr 12/26/18 12/26/18 12/26/18 03:32 08:48 10:34 Temperature 98.7 F 98.2 F Pulse Rate 89 83 Respiratory 12 20 Rate Blood Pressure 98/48 105/58 O2 Sat by Pulse 98 99 Oximetry - Labs CBC & Chem 7: 12/20/18 03:06 12/26/18 07:12 Labs: Abnormal lab results 12/25/18 12/26/18 Range/Units 14:23 07:12 POC ABG pO2 65 L (80-105) Sodium 135 L (137-145) mmol/L BUN 21 H (7-17) mg/dL Glucose 104 H (65-100) mg/dL Magnesium 1.60 L (1.7-2.3) mg/dL
[2018-12-26] MEDS: SODIUM CHLORIDE FLUSH SYRINGE 10 ML IV SCH ×2 (15:07→21:37)
[2018-12-27] MEDS: FLAGYL PO SCH ×3 (05:14→21:36)
--- NOTE | 2018-12-27 09:11 | Progress Note ---
Assessment and Plan Chronic hypoxemic respiratory failure Severe pulmonary HTN Pulmonary fibrosis Mediastinal adenopathy Acute seizure, could have been secondary to arrhythmias , Pulm HTN Acute kidney injury-Vasomotor RADHIKA due to volume depletion. Hyponatremia -Continue with supplemental oxygen -Needs right heart cath to evaluate pulmonary pressures, this is possibly Group 3 PHTN- from lung disease, her EF is preserved. -Work up for pulmonary HTN- get collagen vascular studies, MICHAEL, CARMEN level, Hepatitis screen She will benefit from a pulmonary vasodilator. -Encouraged on compliance with the oxygen therapy -Will need outpatient sleep study as part of her work up for pulmonary HTN -Out patient pulmonary follow up on discharge -VTE prophylaxis -PT/OT/Mobility as tolerated -Bronchodilators per protocol - Avoid nephrotoxic agents -Seizure prophylaxis Continue all supportive care Subjective Date of service: 12/27/18 Interval history: Patient is seen today for:Chronic respiratroy failure, Severe pulmonary HTN; Pulmonary fibrosis Seen and examined at bedside; 24-hour events reviewed; nursing and respiratory care staff consulted; no adverse overnight events reported to me; resting in bed; denies any chest pain, shortness of breath, no fevers or chills. Denies any cough, states she uses her oxygen at home only when she needs it. No nausea, no vomiting, no abdominal pain. "I feel much better" Objective Vital Signs - 12hr 12/27/18 12/27/18 12/27/18 01:49 01:50 08:51 Temperature 98.6 F Pulse Rate 91 H Respiratory 20 Rate Blood Pressure 102/56 O2 Sat by Pulse 98 98 Oximetry Constitutional: no acute distress, alert Eyes: non-icteric ENT: oropharynx moist Neck: supple, no JVD Effort: mildly labored Ascultation: Bilateral: diminished breath sounds (basilar inspiratory crackles) Cardiovascular: regular rate and rhythm, other (S1,S2, no murmurs, gallops or rubs) Gastrointestinal: normoactive bowel sounds, soft Integumentary: normal Extremities: no cyanosis, no edema Neurologic: normal mental status, non-focal exam, pupils equal and round, CN II- XII normal, motor strength normal and Psychiatric: mood appropriate, affect normal CBC and BMP: 12/20/18 03:06 12/28/18 05:24 ABG, PT/INR, D-dimer: ABG POC ABG pH 7.359 (7.35-7.45) 12/25/18 14:23 POC ABG pCO2 42.6 (35-45) 12/25/18 14:23 POC ABG pO2 65 (80-105) L 12/25/18 14:23 POC ABG HCO3 24.0 (22-26 mml/L) 12/25/18 14:23 POC ABG Total CO2 25 (23-27mmol/L) 12/25/18 14:23 POC ABG O2 Sat 92 12/25/18 14:23 PT/INR, D-dimer PT 15.1 Sec. (12.2-14.9) H 12/20/18 03:06 INR 1.12 (0.87-1.13) 12/20/18 03:06 Abnormal lab findings: Abnormal Labs 12/20/18 12/20/18 12/20/18 02:00 03:06 03:06 WBC 14.4 H RBC 3.55 L RDW 19.9 H PT 15.1 H POC ABG pO2 Sodium Potassium Chloride BUN Creatinine Glucose Calcium Magnesium Total Creatine Kinase NT-Pro-B Natriuret Pep Albumin PTH Intact U Epithel Cells (Auto) 17.0 H Urine Creatinine 12/20/18 12/20/18 12/21/18 03:06 07:39 06:08 WBC RBC RDW PT POC ABG pO2 Sodium 129 L 130 L Potassium 3.0 L Chloride 86.1 L 88.9 L BUN 35 H 43 H Creatinine 1.4 H 1.6 H Glucose 125 H 131 H Calcium 6.0 L 6.3 L Magnesium 0.40 L* 1.00 L 1.00 L Total Creatine Kinase 238 H NT-Pro-B Natriuret Pep 67394 H Albumin 2.8 L PTH Intact U Epithel Cells (Auto) Urine Creatinine 12/22/18 12/22/18 12/22/18 00:25 07:42 07:42 WBC RBC RDW PT POC ABG pO2 Sodium 131 L Potassium 3.3 L Chloride 91.8 L BUN 41 H Creatinine 1.4 H Glucose 118 H Calcium 7.3 L D Magnesium 1.60 L Total Creatine Kinase NT-Pro-B Natriuret Pep Albumin PTH Intact 186.9 H U Epithel Cells (Auto) Urine Creatinine 85.8 H 12/23/18 12/24/18 12/25/18 08:05 06:53 06:09 WBC RBC RDW PT POC ABG pO2 Sodium 133 L 133 L Potassium Chloride 97.3 L BUN 31 H 26 H 26 H Creatinine Glucose 102 H 109 H 104 H Calcium Magnesium 1.30 L Total Creatine Kinase NT-Pro-B Natriuret Pep Albumin PTH Intact U Epithel Cells (Auto) Urine Creatinine 12/25/18 12/26/18 12/27/18 14:23 07:12 04:09 WBC RBC RDW PT POC ABG pO2 65 L Sodium 135 L Potassium Chloride BUN 21 H Creatinine Glucose 104 H Calcium Magnesium 1.60 L 1.60 L Total Creatine Kinase NT-Pro-B Natriuret Pep Albumin PTH Intact U Epithel Cells (Auto) Urine Creatinine Chest x-ray: image reviewed CT scan - chest: image reviewed (Pulmonary HTN by CT criteria, Fibrosis, ) Additional Studies: Radiological data: CXR: No acute pulmonary finding identified. Bibasilar scarring/fibrosis. CT abdomen/pelvis; There is cholelithiasis.. There are no kidney stones. There is no hydronephrosis. There is diverticulosis of the colon. There is no diverticulitis, colitis, obstruction or mass. The appendix is normal. . There is air in the bladder. There is a left-sided bladder diverticulum.. There is no a scites, free air, abscess or adenopathy.. . CT head: There is no acute intracranial abnormality. . 2D echo: EF 60-65%, moderate to severe PHTN Allied health notes reviewed: nursing
--- NOTE | 2018-12-27 09:38 | Progress Note ---
Assessment and Plan 1. Acute kidney injury: Vasomotor RADHIKA due to volume depletion. Renal US negative for hydro. Renal function is better. Monitor renal function. Avoid nephrotoxic agents. Meds dosage based on GFR. 2. FEN: Hypomagnesemia, replete Mg. Likely from diarrhea. Hypokalemia, improved. Monitor lytes. 3. Seizures. 4. Pulmonary HTN. 5. Diarrhea. Subjective Date of service: 12/27/18 Interval history: Patient was seen and examined at the bedside. Doing ok. Objective - Vital Signs Vital signs: Vital Signs - 12hr 12/27/18 12/27/18 12/27/18 01:49 01:50 08:01 Temperature 98.6 F 98.3 F Pulse Rate 91 H 85 Respiratory 20 20 Rate Blood Pressure 102/56 109/62 O2 Sat by Pulse 98 100 Oximetry 12/27/18 08:51 Temperature Pulse Rate Respiratory Rate Blood Pressure O2 Sat by Pulse 98 Oximetry - General Appearance General appearance: well-developed, well-nourished, appears stated age, other ( not in distress) EENT: ATNC, PERRL, mucous membranes moist, hearing intact, vision intact Neck: supple Respiratory: Present: Clear to Ascultation Cardiology: regular, S1S2, no murmurs Gastrointestinal: normoactive bowel sounds, no tenderness, no distended Integumentary: no rash, warm and dry Neurologic: no focal deficit, no asterixis Musculoskeletal: other (no edema) - Lab 12/20/18 03:06 12/26/18 07:12 Most recent lab results Calcium 9.4 mg/dL (8.4-10.2) 12/26/18 07:12 Phosphorus 3.10 mg/dL (2.5-4.5) 12/22/18 07:42 Magnesium 1.60 mg/dL (1.7-2.3) L 12/27/18 04:09 Urine Creatinine 85.8 mg/dL (0.1-20.0) H 12/22/18 00:25 Urine Sodium 21 mmol/L 12/22/18 00:25 Medications & Allergies - Medications Allergies/Adverse Reactions: Allergies lisinopril Allergy (Verified 08/13/13 15:50) Angioedema Home Medications: Home Medications Medication Instructions Recorded Confirmed Last Taken Type Carvedilol [Coreg] 3.125 mg PO DAILY 12/20/18 12/20/18 Unknown History Iron [Iron 18 MG TAB] 18 mg PO QDAY 12/20/18 12/20/18 Unknown History Omeprazole 20 mg PO DAILY 12/20/18 12/20/18 Unknown History Potassium Chloride [K-Dur] 10 meq PO BID 12/20/18 12/20/18 Unknown History Loperamide [Imodium] 2 mg PO Q2HR PRN #10 capsule 12/23/18 Unknown Rx Magnesium Oxide [Magnesium] 200 mg PO DAILY #10 tab.chew 12/23/18 Unknown Rx levETIRAcetam [Keppra TAB] 750 mg PO BID #60 tablet 12/23/18 Unknown Rx Active Medications: Generic Name Dose Route Start Last Admin Trade Name Freq PRN Reason Stop Dose Admin Acetaminophen 650 mg 12/20/18 06:00 12/21/18 15:41 Tylenol PO 650 mg Q4H PRN Administration Pain MILD(1-3)/Fever >100.5/HURTADO Albuterol 2.5 mg 12/21/18 02:00 12/21/18 11:51 Proventil IH 2.5 mg Q4HRT PRN Administration Shortness Of Breath Enoxaparin Sodium 40 mg 12/21/18 12:00 12/26/18 09:47 Lovenox SUB-Q 40 mg QDAY@1000 BARB Administration Magnesium Sulfate 2 gm in 50 mls @ 25 mls/hr 12/27/18 09:36 Magnesium Sulfate 2gm/50ml IV 12/27/18 11:35 ONCE ONE Levetiracetam 750 mg 12/23/18 22:00 12/26/18 21:36 Keppra PO 750 mg BID BRAB Administration Loperamide HCl 2 mg 12/24/18 12:22 Imodium PO Q2H PRN Diarrhea Lorazepam 1 mg 12/20/18 06:07 Ativan IV Q1H PRN Seizures Magnesium Oxide 400 mg 12/26/18 10:00 12/26/18 21:36 Mag-Ox PO 400 mg BID BARB Administration Metronidazole 500 mg 12/24/18 14:00 12/27/18 05:14 Flagyl PO 500 mg Q8HR BARB Administration Protocol Ondansetron HCl 4 mg 12/20/18 06:00 Zofran IV Q8H PRN Nausea And Vomiting Pantoprazole Sodium 40 mg 12/25/18 14:00 12/26/18 09:47 Protonix PO 40 mg QDAY BARB Administration Sodium Chloride 10 ml 12/20/18 10:00 12/26/18 21:37 Sodium Chloride Flush Syringe 10 Ml IV 10 ml BID BARB Administration Sodium Chloride 10 ml 12/20/18 06:00 Sodium Chloride Flush Syringe 10 Ml IV PRN PRN LINE FLUSH
[2018-12-27] MEDS: KEPPRA PO SCH ×2 (10:51→21:36)
[2018-12-27] MEDS: LOVENOX SUB-Q SCH (10:51)
[2018-12-27] MEDS: TYLENOL PO PRN (10:52)
[2018-12-27] MEDS: MAG-OX PO SCH ×2 (10:52→21:36)
[2018-12-27] MEDS: SODIUM CHLORIDE FLUSH SYRINGE 10 ML IV SCH ×2 (10:53→21:36)
[2018-12-27] MEDS: PROTONIX PO SCH (10:53)
[2018-12-27] MEDS ORDERED: MAGNESIUM SULFATE 2GM/50ML 2 GM/50 ML BAG IV ONE (11:00)
[2018-12-27] MEDS ORDERED: MAGNESIUM SULFATE 3 GM in NACL 0.9% 100 ML IV ONE (11:09)
--- NOTE | 2018-12-27 12:21 | Cat Scan Report ---
CT CHEST WITH CONTRAST: HISTORY: Pulmonary fibrosis. COMPARISON: 06/26/18. TECHNIQUE: Helical CT in 1.25mm intervals following IV contrast. Sagittal and coronal reformatted images. FINDINGS: Thyroid gland: Normal. Tracheobronchial tree: Normal. Esophagus: Normal. Heart: Normal. Pericardium: Trace pericardial effusion posteriorly which is new since the previous exam. Mediastinum: There are scattered borderline lymph nodes in the superior mediastinum measuring up to 1.2 cm in greatest dimension. These are slightly more pronounced or new since the previous exam. Lung [place]: There is mild to moderate septal thickening in both lower lung zones. Early honeycombing is identified in both lower lobes and anterior right upper lobe. These findings appear increased since the previous exam. There is mild groundglass shadowing in the lower lobes. No evidence for mass or infiltrate. Pleural Spaces: Normal. Musculoskeletal: Mild osteopenia. Mild thoracic spondylosis. IMPRESSION: Findings consistent with idiopathic pulmonary fibrosis which has progressed slightly since 06/26/18 exam as outlined above. Trace pericardial effusion. Osteopenia and mild thoracic spondylosis.
--- NOTE | 2018-12-27 13:48 | Progress Note ---
Assessment and Plan Acute seizure, likely from electrolytes imbalance ? - CT head negative, cont keppra, consulted neuro, seizure precaution - neuro did not recommend any further work up Dizziness, likely from severe PHTN and diarrhea - PT recommended GEE, cont supplemental O2, treat diarrhea Moderate to severe PHTN - cont home O2, consulted Pulmonary CHF, ruled out with 2d echo, has preserved EF Chronic respiratory failure, likely from severe pulmonary HTN, cont supplemental O2 Hypokalemia, repleted - likely from diuretics vs diarrhea? resolved Hypomagnesemia, cont to replete and monitor, likely from diuretics vs diarrhea? Hypocalcemia, repleted, elevated PTH and VitD pending hyponatremia, dehydration? - monitor BMP, RADHIKA on possible CKD, monitor renal function, consulted renal, renal US showed medical renal disease, Cr now stable Osteoarthritis, supportive care, PT eval when stable Diarrhea, Patient does not appear toxic, will cont to treat empirically with flagyl. stool study ordered for any infectious etiology, still pending DVT Px, lovenox Radiological data: CXR: No acute pulmonary finding identified. Bibasilar scarring/fibrosis. CT abdomen/pelvis; There is cholelithiasis.. There are no kidney stones. There is no hydronephrosis. There is diverticulosis of the colon. There is no diverticulitis, colitis, obstruction or mass. The appendix is normal. . There is air in the bladder. There is a left-sided bladder diverticulum.. There is no ascites, free air, abscess or adenopathy.. . CT head: There is no acute intracranial abnormality. . 2D echo: EF 60-65%, moderate to severe PHTN Disposition: Need GEE/SNF Brief History: This is a 68 y/o female with h/o arthritis, chf, chronic respiratory failure on home o2, remote h/o seizure not on meds for 5 years presented with sudden onset of seizure like activity witnessed by the Son. There was no tonguw bite, no loss of bowel/bladder, duration of seizure unknown. In the ER patient was oriented, c/o SOB and minimal leg swelling but no chest pain and oriented X3. her lab showed mg 0.4, with low Na, K and Ca. Her CT head had no acute process. She is on torsemide at home and admits compliance with meds. She denies any N/V/D or abdominal pain. She was called for admission for further evaluation and management. Subjective Date of service: 12/27/18 Interval history: Patient seen and examined denies any chest pain, states feels better, Mg level still low, getting replacement discussed with patient at the bedside Objective - Exam Narrative Exam: GENERAL: well-developed and elderly AAF lying on bed appeared to be in no discomfort. HEENT: Normocephalic. Atraumatic. No conjunctival congestion or icterus. Patient has moist mucous membranes. NECK: Supple. Trachea midline. CHEST/LUNGS: + bibasilar crackles or rhonchi. HEART/CARDIOVASCULAR: Regular in rate and rhythm. S1 and S2 positive. ABDOMEN: Abdomen is soft, nontender. Patient has normal bowel sounds. SKIN: There is no rash. Warm and dry. NEURO: No focal motor deficit. Follows command. MUSCULOSKELETAL: No joint effusion or tenderness. EXTRIMITY: mild edema, no cyanosis or clubbing. PSYCH: Cooperative. - Constitutional Vitals: Vital Signs - 12hr 12/27/18 12/27/18 12/27/18 01:49 01:50 08:01 Temperature 98.6 F 98.3 F Pulse Rate 91 H 85 Respiratory 20 20 Rate Blood Pressure 102/56 109/62 O2 Sat by Pulse 98 100 Oximetry 12/27/18 08:51 Temperature Pulse Rate Respiratory Rate Blood Pressure O2 Sat by Pulse 98 Oximetry - Labs CBC & Chem 7: 12/20/18 03:06 12/26/18 07:12 Labs: Abnormal lab results 12/27/18 Range/Units 04:09 Magnesium 1.60 L (1.7-2.3) mg/dL
[2018-12-28] MEDS: FLAGYL PO SCH ×3 (05:15→22:37)
[2018-12-28 06:16] LABS: BUN/Creatinine Ratio 18; Blood Urea Nitrogen 14 mg/dL (7-17); Calcium 9.3 mg/dL (8.4-10.2); Hemolysis Index 2
--- NOTE | 2018-12-28 09:23 | Progress Note ---
Assessment and Plan 1. Acute kidney injury: Vasomotor RADHIKA due to volume depletion. Renal US negative for hydro. Renal function is better. Monitor renal function. Avoid nephrotoxic agents. Meds dosage based on GFR. 2. FEN: Hypomagnesemia, replete Mg. Likely from diarrhea. Hypokalemia, improved. Monitor lytes. 3. Seizures. 4. Pulmonary HTN. 5. Diarrhea: Improving. Subjective Date of service: 12/28/18 Interval history: Patient was seen and examined at the bedside. Doing ok. Objective - Vital Signs Vital signs: Vital Signs - 12hr 12/28/18 07:51 Temperature 98.7 F Pulse Rate 73 Respiratory 21 Rate Blood Pressure 97/53 [Right] O2 Sat by Pulse 93 Oximetry - General Appearance General appearance: well-developed, well-nourished, appears stated age, other (no tin distress) EENT: ATNC, PERRL, mucous membranes moist, hearing intact, vision intact Neck: supple Respiratory: Present: Clear to Ascultation Cardiology: regular, S1S2, no murmurs Gastrointestinal: normoactive bowel sounds, no tenderness, no distended Integumentary: no rash, warm and dry Neurologic: no focal deficit, no asterixis, alert and oriented x3 Musculoskeletal: other (no edema) Psychiatric: cooperative - Lab 12/20/18 03:06 12/28/18 05:24 Most recent lab results Calcium 9.3 mg/dL (8.4-10.2) 12/28/18 05:24 Phosphorus 3.10 mg/dL (2.5-4.5) 12/22/18 07:42 Magnesium 2.10 mg/dL (1.7-2.3) 12/28/18 05:24 Urine Creatinine 85.8 mg/dL (0.1-20.0) H 12/22/18 00:25 Urine Sodium 21 mmol/L 12/22/18 00:25 Medications & Allergies - Medications Allergies/Adverse Reactions: Allergies lisinopril Allergy (Verified 08/13/13 15:50) Angioedema Home Medications: Home Medications Medication Instructions Recorded Confirmed Last Taken Type Carvedilol [Coreg] 3.125 mg PO DAILY 12/20/18 12/20/18 Unknown History Iron [Iron 18 MG TAB] 18 mg PO QDAY 12/20/18 12/20/18 Unknown History Omeprazole 20 mg PO DAILY 12/20/18 12/20/18 Unknown History Potassium Chloride [K-Dur] 10 meq PO BID 12/20/18 12/20/18 Unknown History Loperamide [Imodium] 2 mg PO Q2HR PRN #10 capsule 12/23/18 Unknown Rx Magnesium Oxide [Magnesium] 200 mg PO DAILY #10 tab.chew 12/23/18 Unknown Rx levETIRAcetam [Keppra TAB] 750 mg PO BID #60 tablet 12/23/18 Unknown Rx Active Medications: Generic Name Dose Route Start Last Admin Trade Name Freq PRN Reason Stop Dose Admin Acetaminophen 650 mg 12/20/18 06:00 12/27/18 10:52 Tylenol PO 650 mg Q4H PRN Administration Pain MILD(1-3)/Fever >100.5/HURTADO Albuterol 2.5 mg 12/21/18 02:00 12/21/18 11:51 Proventil IH 2.5 mg Q4HRT PRN Administration Shortness Of Breath Enoxaparin Sodium 40 mg 12/21/18 12:00 12/27/18 10:51 Lovenox SUB-Q 40 mg QDAY@1000 BARB Administration Levetiracetam 750 mg 12/23/18 22:00 12/27/18 21:36 Keppra PO 750 mg BID BARB Administration Loperamide HCl 2 mg 12/24/18 12:22 Imodium PO Q2H PRN Diarrhea Lorazepam 1 mg 12/20/18 06:07 Ativan IV Q1H PRN Seizures Magnesium Oxide 400 mg 12/26/18 10:00 12/27/18 21:36 Mag-Ox PO 400 mg BID BARB Administration Metronidazole 500 mg 12/24/18 14:00 12/28/18 05:15 Flagyl PO 12/30/18 23:59 500 mg Q8HR BARB Administration Protocol Ondansetron HCl 4 mg 12/20/18 06:00 Zofran IV Q8H PRN Nausea And Vomiting Pantoprazole Sodium 40 mg 12/25/18 14:00 12/27/18 10:53 Protonix PO 40 mg QDAY BARB Administration Sodium Chloride 10 ml 12/20/18 10:00 12/27/18 21:36 Sodium Chloride Flush Syringe 10 Ml IV 10 ml BID BARB Administration Sodium Chloride 10 ml 12/20/18 06:00 Sodium Chloride Flush Syringe 10 Ml IV PRN PRN LINE FLUSH
[2018-12-28] MEDS: LOVENOX SUB-Q SCH (10:03)
[2018-12-28] MEDS: PROTONIX PO SCH (10:04)
[2018-12-28] MEDS: SODIUM CHLORIDE FLUSH SYRINGE 10 ML IV SCH ×2 (10:04→23:08)
[2018-12-28] MEDS: KEPPRA PO SCH ×2 (10:04→22:36)
[2018-12-28] MEDS: MAG-OX PO SCH ×2 (10:04→22:37)
[2018-12-28 11:36] LABS: Vitamin D, 25-OH, D2 SEE SCANNED RESULTS
--- NOTE | 2018-12-28 11:42 | Progress Note ---
Assessment and Plan Chronic hypoxemic respiratory failure Severe pulmonary HTN Pulmonary fibrosis Mediastinal adenopathy Acute seizure, could have been secondary to arrhythmias , Pulm HTN Acute kidney injury-Vasomotor RADHIKA due to volume depletion. Hyponatremia -Continue with supplemental oxygen -Needs right heart cath to evaluate pulmonary pressures, this is possibly Group 3 PHTN- from lung disease, her EF is preserved. Can be done as outpatient -Work up for pulmonary HTN- get collagen vascular studies, MICHAEL, CARMEN level, Hepatitis screen She will benefit from a pulmonary vasodilator. -Encouraged on compliance with the oxygen therapy -Will need outpatient sleep study as part of her work up for pulmonary HTN -Out patient pulmonary follow up on discharge -VTE prophylaxis -PT/OT/Mobility as tolerated -Bronchodilators per protocol - Avoid nephrotoxic agents -Seizure prophylaxis Continue all supportive care Subjective Date of service: 12/28/18 Interval history: Patient is seen today for:Chronic respiratory failure, Severe pulmonary HTN; Pulmonary fibrosis Seen and examined at bedside; 24-hour events reviewed; nursing and respiratory care staff consulted; no adverse overnight events reported to me; resting in bed; denies any chest pain, shortness of breath, no fevers or chills. Denies any cough, states she uses her oxygen at home only when she needs it. No nausea, no vomiting, no abdominal pain. "I feel much better", continues to make progress Objective Vital Signs - 12hr 12/28/18 07:51 Temperature 98.7 F Pulse Rate 73 Respiratory 21 Rate Blood Pressure 97/53 [Right] O2 Sat by Pulse 93 Oximetry Constitutional: no acute distress, alert Eyes: non-icteric ENT: oropharynx moist Neck: supple, no JVD Effort: mildly labored Ascultation: Bilateral: diminished breath sounds (basilar inspiratory crackles) Cardiovascular: regular rate and rhythm, other (S1,S2, no murmurs, gallops or rubs) Gastrointestinal: normoactive bowel sounds, soft Integumentary: normal Extremities: no cyanosis, no edema Neurologic: normal mental status, non-focal exam, pupils equal and round, CN II- XII normal, motor strength normal and Psychiatric: mood appropriate, affect normal CBC and BMP: 12/20/18 03:06 12/28/18 05:24 ABG, PT/INR, D-dimer: ABG POC ABG pH 7.359 (7.35-7.45) 12/25/18 14:23 POC ABG pCO2 42.6 (35-45) 12/25/18 14:23 POC ABG pO2 65 (80-105) L 12/25/18 14:23 POC ABG HCO3 24.0 (22-26 mml/L) 12/25/18 14:23 POC ABG Total CO2 25 (23-27mmol/L) 12/25/18 14:23 POC ABG O2 Sat 92 12/25/18 14:23 PT/INR, D-dimer PT 15.1 Sec. (12.2-14.9) H 12/20/18 03:06 INR 1.12 (0.87-1.13) 12/20/18 03:06 Abnormal lab findings: Abnormal Labs 12/20/18 12/20/18 12/20/18 02:00 03:06 03:06 WBC 14.4 H RBC 3.55 L RDW 19.9 H PT 15.1 H POC ABG pO2 Sodium Potassium Chloride BUN Creatinine Glucose Calcium Magnesium Total Creatine Kinase NT-Pro-B Natriuret Pep Albumin PTH Intact U Epithel Cells (Auto) 17.0 H Urine Creatinine 12/20/18 12/20/18 12/21/18 03:06 07:39 06:08 WBC RBC RDW PT POC ABG pO2 Sodium 129 L 130 L Potassium 3.0 L Chloride 86.1 L 88.9 L BUN 35 H 43 H Creatinine 1.4 H 1.6 H Glucose 125 H 131 H Calcium 6.0 L 6.3 L Magnesium 0.40 L* 1.00 L 1.00 L Total Creatine Kinase 238 H NT-Pro-B Natriuret Pep 89034 H Albumin 2.8 L PTH Intact U Epithel Cells (Auto) Urine Creatinine 12/22/18 12/22/18 12/22/18 00:25 07:42 07:42 WBC RBC RDW PT POC ABG pO2 Sodium 131 L Potassium 3.3 L Chloride 91.8 L BUN 41 H Creatinine 1.4 H Glucose 118 H Calcium 7.3 L D Magnesium 1.60 L Total Creatine Kinase NT-Pro-B Natriuret Pep Albumin PTH Intact 186.9 H U Epithel Cells (Auto) Urine Creatinine 85.8 H 12/23/18 12/24/18 12/25/18 08:05 06:53 06:09 WBC RBC RDW PT POC ABG pO2 Sodium 133 L 133 L Potassium Chloride 97.3 L BUN 31 H 26 H 26 H Creatinine Glucose 102 H 109 H 104 H Calcium Magnesium 1.30 L Total Creatine Kinase NT-Pro-B Natriuret Pep Albumin PTH Intact U Epithel Cells (Auto) Urine Creatinine 12/25/18 12/26/18 12/27/18 14:23 07:12 04:09 WBC RBC RDW PT POC ABG pO2 65 L Sodium 135 L Potassium Chloride BUN 21 H Creatinine Glucose 104 H Calcium Magnesium 1.60 L 1.60 L Total Creatine Kinase NT-Pro-B Natriuret Pep Albumin PTH Intact U Epithel Cells (Auto) Urine Creatinine 12/28/18 05:24 WBC RBC RDW PT POC ABG pO2 Sodium 136 L Potassium Chloride BUN Creatinine Glucose Calcium Magnesium Total Creatine Kinase NT-Pro-B Natriuret Pep Albumin PTH Intact U Epithel Cells (Auto) Urine Creatinine Allied health notes reviewed: nursing
--- NOTE | 2018-12-28 13:20 | Progress Note ---
Assessment and Plan Acute seizure, likely from electrolytes imbalance ? - CT head negative, cont keppra, consulted neuro, seizure precaution - neuro did not recommend any further work up Dizziness, likely from severe PHTN and diarrhea - PT recommended GEE, cont supplemental O2, treat diarrhea Moderate to severe PHTN - cont home O2, consulted Pulmonary CHF, ruled out with 2d echo, has preserved EF Chronic respiratory failure, likely from severe pulmonary HTN, cont supplemental O2 Hypokalemia, repleted - likely from diuretics vs diarrhea? resolved Hypomagnesemia, repleted, likely from diuretics vs diarrhea? Hypocalcemia, repleted, elevated PTH and VitD pending hyponatremia, dehydration? - monitor BMP, RADHIKA on possible CKD, monitor renal function, consulted renal, renal US showed medical renal disease, Cr now stable Osteoarthritis, supportive care, PT recommended GEE Diarrhea, Patient does not appear toxic, will cont to treat empirically with flagyl for a week. stool study ordered for any infectious etiology, still pending DVT Px, lovenox Radiological data: CXR: No acute pulmonary finding identified. Bibasilar scarring/fibrosis. CT abdomen/pelvis; There is cholelithiasis.. There are no kidney stones. There is no hydronephrosis. There is diverticulosis of the colon. There is no diverticulitis, colitis, obstruction or mass. The appendix is normal. . There is air in the bladder. There is a left-sided bladder diverticulum.. There is no ascites, free air, abscess or adenopathy.. . CT head: There is no acute intracranial abnormality. . 2D echo: EF 60-65%, moderate to severe PHTN Disposition: Need GEE/SNF Brief History: This is a 68 y/o female with h/o arthritis, chf, chronic respiratory failure on home o2, remote h/o seizure not on meds for 5 years presented with sudden onset of seizure like activity witnessed by the Son. There was no tonguw bite, no loss of bowel/bladder, duration of seizure unknown. In the ER patient was oriented, c/o SOB and minimal leg swelling but no chest pain and oriented X3. her lab showed mg 0.4, with low Na, K and Ca. Her CT head had no acute process. She is on torsemide at home and admits compliance with meds. She denies any N/V/D or abdominal pain. She was called for admission for further evaluation and management. Subjective Date of service: 12/28/18 Interval history: Patient seen and examined denies any chest pain, states feels better, Mg level normal discussed with patient at the bedside d/c pending on placement Objective - Exam Narrative Exam: GENERAL: well-developed and elderly AAF lying on bed appeared to be in no discomfort. HEENT: Normocephalic. Atraumatic. No conjunctival congestion or icterus. Patient has moist mucous membranes. NECK: Supple. Trachea midline. CHEST/LUNGS: + bibasilar crackles or rhonchi. HEART/CARDIOVASCULAR: Regular in rate and rhythm. S1 and S2 positive. ABDOMEN: Abdomen is soft, nontender. Patient has normal bowel sounds. SKIN: There is no rash. Warm and dry. NEURO: No focal motor deficit. Follows command. MUSCULOSKELETAL: No joint effusion or tenderness. EXTRIMITY: mild edema, no cyanosis or clubbing. PSYCH: Cooperative. - Constitutional Vitals: Vital Signs - 12hr 12/28/18 12/28/18 07:51 10:00 Temperature 98.7 F Pulse Rate 73 Respiratory 21 20 Rate Blood Pressure 97/53 [Right] O2 Sat by Pulse 93 Oximetry - Labs CBC & Chem 7: 12/20/18 03:06 12/28/18 05:24 Labs: Abnormal lab results 12/28/18 Range/Units 05:24 Sodium 136 L (137-145) mmol/L
[2018-12-29] MEDS: FLAGYL PO SCH ×2 (07:21→22:01)
--- NOTE | 2018-12-29 10:01 | Progress Note ---
Assessment and Plan 1. Acute kidney injury: Vasomotor RADHIKA due to volume depletion. Renal US negative for hydro. Renal function is better. Monitor renal function. Avoid nephrotoxic agents. Meds dosage based on GFR. 2. FEN: Hypomagnesemia, replete Mg as needed. Likely from diarrhea. Hypokalemia, improved. Monitor lytes. 3. Seizures. 4. Pulmonary HTN. 5. Diarrhea: Improving. Subjective Date of service: 12/29/18 Interval history: Patient was seen and examined at the bedside. Doing ok. Objective - Vital Signs Vital signs: Vital Signs - 12hr 12/29/18 12/29/18 02:00 07:35 Temperature 98.3 F 98.0 F Pulse Rate 82 83 Respiratory 18 18 Rate Blood Pressure 106/52 109/63 [Right] O2 Sat by Pulse 96 98 Oximetry - General Appearance General appearance: well-developed, well-nourished, appears stated age, other (not in distress) EENT: ATNC, PERRL, mucous membranes moist, hearing intact, vision intact Neck: supple Respiratory: Present: Clear to Ascultation Cardiology: regular, S1S2, no murmurs Gastrointestinal: normoactive bowel sounds, no tenderness, no distended Integumentary: no rash, warm and dry Neurologic: no focal deficit, no asterixis Musculoskeletal: other (no edema) - Lab 12/30/18 05:36 12/30/18 05:36 Most recent lab results Calcium 9.3 mg/dL (8.4-10.2) 12/28/18 05:24 Phosphorus 3.10 mg/dL (2.5-4.5) 12/22/18 07:42 Magnesium 2.10 mg/dL (1.7-2.3) 12/28/18 05:24 Urine Creatinine 85.8 mg/dL (0.1-20.0) H 12/22/18 00:25 Urine Sodium 21 mmol/L 12/22/18 00:25 Medications & Allergies - Medications Allergies/Adverse Reactions: Allergies lisinopril Allergy (Verified 08/13/13 15:50) Angioedema Home Medications: Home Medications Medication Instructions Recorded Confirmed Last Taken Type Carvedilol [Coreg] 3.125 mg PO DAILY 12/20/18 12/20/18 Unknown History Iron [Iron 18 MG TAB] 18 mg PO QDAY 12/20/18 12/20/18 Unknown History Omeprazole 20 mg PO DAILY 12/20/18 12/20/18 Unknown History Potassium Chloride [K-Dur] 10 meq PO BID 12/20/18 12/20/18 Unknown History Loperamide [Imodium] 2 mg PO Q2HR PRN #10 capsule 12/23/18 Unknown Rx Magnesium Oxide [Magnesium] 200 mg PO DAILY #10 tab.chew 12/23/18 Unknown Rx levETIRAcetam [Keppra TAB] 750 mg PO BID #60 tablet 12/23/18 Unknown Rx Active Medications: Generic Name Dose Route Start Last Admin Trade Name Freq PRN Reason Stop Dose Admin Acetaminophen 650 mg 12/20/18 06:00 12/27/18 10:52 Tylenol PO 650 mg Q4H PRN Administration Pain MILD(1-3)/Fever >100.5/HURTADO Albuterol 2.5 mg 12/21/18 02:00 12/21/18 11:51 Proventil IH 2.5 mg Q4HRT PRN Administration Shortness Of Breath Enoxaparin Sodium 40 mg 12/21/18 12:00 12/28/18 10:03 Lovenox SUB-Q 40 mg QDAY@1000 BARB Administration Levetiracetam 750 mg 12/23/18 22:00 12/28/18 22:36 Keppra PO 750 mg BID BARB Administration Loperamide HCl 2 mg 12/24/18 12:22 12/28/18 20:18 Imodium PO 2 mg Q2H PRN Administration Diarrhea Lorazepam 1 mg 12/20/18 06:07 Ativan IV Q1H PRN Seizures Magnesium Oxide 400 mg 12/26/18 10:00 12/28/18 22:37 Mag-Ox PO 400 mg BID BARB Administration Metronidazole 500 mg 12/24/18 14:00 12/29/18 07:21 Flagyl PO 12/30/18 23:59 500 mg Q8HR BARB Administration Protocol Ondansetron HCl 4 mg 12/20/18 06:00 Zofran IV Q8H PRN Nausea And Vomiting Pantoprazole Sodium 40 mg 12/25/18 14:00 12/28/18 10:04 Protonix PO 40 mg QDAY BARB Administration Sodium Chloride 10 ml 12/20/18 10:00 12/28/18 23:08 Sodium Chloride Flush Syringe 10 Ml IV 10 ml BID BARB Administration Sodium Chloride 10 ml 12/20/18 06:00 Sodium Chloride Flush Syringe 10 Ml IV PRN PRN LINE FLUSH
[2018-12-29] MEDS: MAG-OX PO SCH ×2 (10:53→22:01)
[2018-12-29] MEDS: SODIUM CHLORIDE FLUSH SYRINGE 10 ML IV SCH ×2 (10:54→22:02)
[2018-12-29] MEDS: LOVENOX SUB-Q SCH (10:54)
[2018-12-29] MEDS: PROTONIX PO SCH (10:54)
[2018-12-29] MEDS: KEPPRA PO SCH ×2 (10:55→22:01)
--- NOTE | 2018-12-29 12:29 | Progress Note ---
Assessment and Plan Chronic hypoxemic respiratory failure Severe pulmonary HTN Pulmonary fibrosis Mediastinal adenopathy Acute seizure, could have been secondary to arrhythmias , Pulm HTN Acute kidney injury-Vasomotor RADHIKA due to volume depletion. 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 Can be done as outpatient - Work up for pulmonary HTN- get collagen vascular studies, MICHAEL, CARMEN level, Hepatitis screen - Will need outpatient sleep study as part of her work up for pulmonary HTN - Out patient pulmonary follow up on discharge - VTE prophylaxis - PT/OT/Mobility as tolerated - Bronchodilators per protocol - Avoid nephrotoxic agents - Seizure prophylaxis Continue all supportive care ... re-evaluate in am & prn Subjective Date of service: 12/29/18 Principal diagnosis: Chronic respiratory failure, Severe pulmonary HTN; Pulmonary fibrosis Interval history: Patient is seen today for: Chronic respiratory failure, Severe pulmonary HTN; Pulmonary fibrosis Seen and examined at bedside; 24-hour events reviewed; nursing and respiratory care staff consulted; no adverse overnight events reported to me; resting in bed; feels better; denies acute chest pains or palpitations; remains on supplemental oxygen; No N/V/F/C Objective Vital Signs - 12hr 12/29/18 12/29/18 02:00 07:35 Temperature 98.3 F 98.0 F Pulse Rate 82 83 Respiratory 18 18 Rate Blood Pressure 106/52 109/63 [Right] O2 Sat by Pulse 96 98 Oximetry Constitutional: no acute distress, alert, other (elderly looking obese AAF, normocephalic and atraumatic) Eyes: non-icteric ENT: oropharynx moist Neck: supple, no JVD Effort: mildly labored Ascultation: Bilateral: diminished breath sounds (basilar inspiratory crackles) Percussion: Bilateral: not dull Cardiovascular: regular rate and rhythm, other (S1,S2, no murmurs, gallops or rubs) Gastrointestinal: normoactive bowel sounds, soft, non-tender, non-distended Integumentary: normal Extremities: no cyanosis, no edema, pulses normal, no ischemia or petechiae Neurologic: normal mental status, non-focal exam, pupils equal and round, CN II- XII normal, motor strength normal and Psychiatric: mood appropriate, affect normal CBC and BMP: 12/30/18 05:36 12/30/18 05:36 ABG, PT/INR, D-dimer: ABG POC ABG pH 7.359 (7.35-7.45) 12/25/18 14:23 POC ABG pCO2 42.6 (35-45) 12/25/18 14:23 POC ABG pO2 65 (80-105) L 12/25/18 14:23 POC ABG HCO3 24.0 (22-26 mml/L) 12/25/18 14:23 POC ABG Total CO2 25 (23-27mmol/L) 12/25/18 14:23 POC ABG O2 Sat 92 12/25/18 14:23 PT/INR, D-dimer PT 15.1 Sec. (12.2-14.9) H 12/20/18 03:06 INR 1.12 (0.87-1.13) 12/20/18 03:06 Abnormal lab findings: Abnormal Labs 12/20/18 12/20/18 12/20/18 02:00 03:06 03:06 WBC 14.4 H RBC 3.55 L RDW 19.9 H PT 15.1 H POC ABG pO2 Sodium Potassium Chloride BUN Creatinine Glucose Calcium Magnesium Total Creatine Kinase NT-Pro-B Natriuret Pep Albumin PTH Intact U Epithel Cells (Auto) 17.0 H Urine Creatinine 12/20/18 12/20/18 12/21/18 03:06 07:39 06:08 WBC RBC RDW PT POC ABG pO2 Sodium 129 L 130 L Potassium 3.0 L Chloride 86.1 L 88.9 L BUN 35 H 43 H Creatinine 1.4 H 1.6 H Glucose 125 H 131 H Calcium 6.0 L 6.3 L Magnesium 0.40 L* 1.00 L 1.00 L Total Creatine Kinase 238 H NT-Pro-B Natriuret Pep 99020 H Albumin 2.8 L PTH Intact U Epithel Cells (Auto) Urine Creatinine 12/22/18 12/22/18 12/22/18 00:25 07:42 07:42 WBC RBC RDW PT POC ABG pO2 Sodium 131 L Potassium 3.3 L Chloride 91.8 L BUN 41 H Creatinine 1.4 H Glucose 118 H Calcium 7.3 L D Magnesium 1.60 L Total Creatine Kinase NT-Pro-B Natriuret Pep Albumin PTH Intact 186.9 H U Epithel Cells (Auto) Urine Creatinine 85.8 H 12/23/18 12/24/18 12/25/18 08:05 06:53 06:09 WBC RBC RDW PT POC ABG pO2 Sodium 133 L 133 L Potassium Chloride 97.3 L BUN 31 H 26 H 26 H Creatinine Glucose 102 H 109 H 104 H Calcium Magnesium 1.30 L Total Creatine Kinase NT-Pro-B Natriuret Pep Albumin PTH Intact U Epithel Cells (Auto) Urine Creatinine 12/25/18 12/26/18 12/27/18 14:23 07:12 04:09 WBC RBC RDW PT POC ABG pO2 65 L Sodium 135 L Potassium Chloride BUN 21 H Creatinine Glucose 104 H Calcium Magnesium 1.60 L 1.60 L Total Creatine Kinase NT-Pro-B Natriuret Pep Albumin PTH Intact U Epithel Cells (Auto) Urine Creatinine 12/28/18 05:24 WBC RBC RDW PT POC ABG pO2 Sodium 136 L Potassium Chloride BUN Creatinine Glucose Calcium Magnesium Total Creatine Kinase NT-Pro-B Natriuret Pep Albumin PTH Intact U Epithel Cells (Auto) Urine Creatinine Chest x-ray: image reviewed Allied health notes reviewed: nursing
--- NOTE | 2018-12-29 14:00 | Progress Note ---
Assessment and Plan Assessment and plan: Patient is a 68 yo woman with history OA, CHF, chronic respiratory failure on home o2, seizure disorder not on meds for 5 years who presented with seizure like activity witnessed by the Son. She was found to have low magnesium at 0.4, low Na, K and Ca. CT head showed no acute process. She is on torsemide at home. * CXR: No acute pulmonary finding identified. Bibasilar scarring/fibrosis. * CT abdomen/pelvis; There is cholelithiasis.. There are no kidney stones. There is no hydronephrosis. There is diverticulosis of the colon. There is no diverticulitis, colitis, obstruction or mass. The appendix is normal. . There is air in the bladder. There is a left-sided bladder diverticulum.. There is no ascites, free air, abscess or adenopathy.. . * CT head: There is no acute intracranial abnormality. . * 2D echo: EF 60-65%, moderate to severe PHTN Status epilepticus suspected poa: continue anti-epileptics Dizziness, likely from severe PHTN and diarrhea- PT recommended GEE, cont supplemental O2, treat diarrhea Moderate to severe PHTN - cont home O2, consulted Pulmonary CHF, ruled out with 2d echo, has preserved EF Chronic respiratory failure, likely from severe pulmonary HTN, cont supplemental O2 Hypokalemia, repleted - likely from diuretics vs diarrhea? resolved SEVERE Hypomagnesemia, repleted, likely from diuretics vs diarrhea? Hypocalcemia, repleted, elevated PTH and VitD pending hyponatremia, dehydration? - monitor BMP, RADHIKA, atn and vasomotor nephropathy, poa, on possible CKD 3, monitor renal function, consulted renal, renal US showed medical renal disease, Cr now stable Osteoarthritis, supportive care, PT recommended GEE Diarrhea, Patient does not appear toxic, will cont to treat empirically with flagyl for a week. stool study ordered for any infectious etiology, still pending DVT Px, lovenox Disposition: contnue inpatient care, monitor electrolytes daily and awaiting placement to GEE/SNF History Interval history: Patient was seen and examined. Follow-up on current diagnosis of SZ. Overnight uneventful. Patient denies any chest pain, shortness breath, nausea/vomiting or severe headaches. Imaging, nursing note, chart, labs and old chart reviewed. Discussed with patient. Hospitalist Physical - Physical exam Narrative exam: Gen: WDWN, NAD, Awake, Alert, Orientated HEENT: NCAT, EOMI, PERRL, OP Clear Neck: supple, no adenopathy, no thyromegaly, no JVD CVS/Heart: RRR, normal S1S2, pulses present bilaterally Chest/Lungs: Symmetrical chest expansion, good air entry bilaterally GI/Abdomen: soft, NTND, good bowel sounds, no guarding or rebound /Bladder: no suprapubic tenderness, no CVA or paraspinal tenderness Extermity/Skin: no c/c/e, no obvious rash MSK: FROM x 4 Neuro: CN 2-12 grossly intact, no new focal deficits Psych: calm - Constitutional Vitals: Temp Pulse Resp BP Pulse Ox 98.0 F 83 18 109/63 98 12/29/18 07:35 12/29/18 07:35 12/29/18 07:35 12/29/18 07:35 12/29/18 07:35 Results - Labs CBC & Chem 7: 12/20/18 03:06 12/28/18 05:24 Labs: Laboratory Last Values WBC 14.4 K/mm3 (4.5-11.0) H 12/20/18 03:06 RBC 3.55 M/mm3 (3.65-5.03) L 12/20/18 03:06 Hgb 11.2 gm/dl (10.1-14.3) 12/20/18 03:06 Hct 33.8 % (30.3-42.9) 12/20/18 03:06 MCV 95 fl (79-97) 12/20/18 03:06 MCH 32 pg (28-32) 12/20/18 03:06 MCHC 33 % (30-34) 12/20/18 03:06 RDW 19.9 % (13.2-15.2) H 12/20/18 03:06 Plt Count 233 K/mm3 (140-440) 12/20/18 03:06 PT 15.1 Sec. (12.2-14.9) H 12/20/18 03:06 INR 1.12 (0.87-1.13) 12/20/18 03:06 POC ABG pH 7.359 (7.35-7.45) 12/25/18 14:23 POC ABG pCO2 42.6 (35-45) 12/25/18 14:23 POC ABG pO2 65 (80-105) L 12/25/18 14:23 POC ABG HCO3 24.0 (22-26 mml/L) 12/25/18 14:23 POC ABG Total CO2 25 (23-27mmol/L) 12/25/18 14:23 POC ABG O2 Sat 92 12/25/18 14:23 POC ABG Base Excess -1 ((-2) - (+3)mmol/L) 12/25/18 14:23 FiO2 21 % 12/25/18 14:23 Sodium 136 mmol/L (137-145) L 12/28/18 05:24 Potassium 4.0 mmol/L (3.6-5.0) 12/28/18 05:24 Chloride 99.9 mmol/L (98-107) 12/28/18 05:24 Carbon Dioxide 24 mmol/L (22-30) 12/28/18 05:24 Anion Gap 16 mmol/L 12/28/18 05:24 BUN 14 mg/dL (7-17) 12/28/18 05:24 Creatinine 0.8 mg/dL (0.7-1.2) 12/28/18 05:24 Estimated GFR > 60 ml/min 12/28/18 05:24 BUN/Creatinine Ratio 18 % 12/28/18 05:24 Glucose 94 mg/dL (65-100) 12/28/18 05:24 POC Glucose 98 (70-105) 12/22/18 12:57 Calcium 9.3 mg/dL (8.4-10.2) 12/28/18 05:24 Phosphorus 3.10 mg/dL (2.5-4.5) 12/22/18 07:42 Magnesium 2.10 mg/dL (1.7-2.3) 12/28/18 05:24 Total Bilirubin 1.20 mg/dL (0.1-1.2) 12/20/18 03:06 AST 33 units/L (5-40) 12/20/18 03:06 ALT 17 units/L (7-56) 12/20/18 03:06 Alkaline Phosphatase 59 units/L (35-129) 12/20/18 03:06 Total Creatine Kinase 61 units/L (30-135) 12/22/18 07:42 NT-Pro-B Natriuret Pep 02828 pg/mL (0-900) H 12/20/18 03:06 Total Protein 6.3 g/dL (6.3-8.2) 12/20/18 03:06 Albumin 2.8 g/dL (3.9-5) L 12/20/18 03:06 Albumin/Globulin Ratio 0.8 % 12/20/18 03:06 25-OH Vitamin D Total See scanned results 12/22/18 13:10 25-Hydroxy Vitamin D2 See scanned results 12/22/18 13:10 25-Hydroxy Vitamin D3 See scanned results 12/22/18 13:10 PTH Intact 186.9 pg/mL (15-65) H 12/22/18 07:42 Urine Color Yellow (Yellow) 12/20/18 02:00 Urine Turbidity Slightly-cloudy (Clear) 12/20/18 02:00 Urine pH 5.0 (5.0-7.0) 12/20/18 02:00 Ur Specific Bromide 1.008 (1.003-1.030) 12/20/18 02:00 Urine Protein <15 mg/dl mg/dL (Negative) 12/20/18 02:00 Urine Glucose (UA) Neg mg/dL (Negative) 12/20/18 02:00 Urine Ketones Neg mg/dL (Negative) 12/20/18 02:00 Urine Blood Neg (Negative) 12/20/18 02:00 Urine Nitrite Neg (Negative) 12/20/18 02:00 Urine Bilirubin Neg (Negative) 12/20/18 02:00 Urine Urobilinogen < 2.0 mg/dL (<2.0) 12/20/18 02:00 Ur Leukocyte Esterase Neg (Negative) 12/20/18 02:00 Urine WBC (Auto) 1.0 /HPF (0.0-6.0) 12/20/18 02:00 Urine RBC (Auto) 1.0 /HPF (0.0-6.0) 12/20/18 02:00 U Epithel Cells (Auto) 17.0 /HPF (0-13.0) H 12/20/18 02:00 Urine Bacteria (Auto) 1+ /HPF (Negative) 12/20/18 02:00 Amorphous Crystals 1+ 12/20/18 02:00 Hyaline Casts 7 /LPF 12/20/18 02:00 Urine Mucus Few /HPF 12/20/18 02:00 Urine Creatinine 85.8 mg/dL (0.1-20.0) H 12/22/18 00:25 Urine Sodium 21 mmol/L 12/22/18 00:25 Rheumatoid Factor 12 IU/ml (0-13) 12/28/18 12:41 Active Medications - Current Medications Current Medications: Generic Name Dose Route Start Last Admin Trade Name Freq PRN Reason Stop Dose Admin Acetaminophen 650 mg 12/20/18 06:00 12/27/18 10:52 Tylenol PO 650 mg Q4H PRN Administration Pain MILD(1-3)/Fever >100.5/HURTADO Albuterol 2.5 mg 12/21/18 02:00 12/21/18 11:51 Proventil IH 2.5 mg Q4HRT PRN Administration Shortness Of Breath Enoxaparin Sodium 40 mg 12/21/18 12:00 12/29/18 10:54 Lovenox SUB-Q 40 mg QDAY@1000 BARB Administration Levetiracetam 750 mg 12/23/18 22:00 12/29/18 10:55 Keppra PO 750 mg BID BARB Administration Loperamide HCl 2 mg 12/24/18 12:22 12/28/18 20:18 Imodium PO 2 mg Q2H PRN Administration Diarrhea Lorazepam 1 mg 12/20/18 06:07 Ativan IV Q1H PRN Seizures Magnesium Oxide 400 mg 12/26/18 10:00 12/29/18 10:53 Mag-Ox PO 400 mg BID BARB Administration Metronidazole 500 mg 12/24/18 14:00 12/29/18 07:21 Flagyl PO 12/30/18 23:59 500 mg Q8HR BARB Administration Protocol Ondansetron HCl 4 mg 12/20/18 06:00 Zofran IV Q8H PRN Nausea And Vomiting Pantoprazole Sodium 40 mg 12/25/18 14:00 12/29/18 10:54 Protonix PO 40 mg QDAY BARB Administration Sodium Chloride 10 ml 12/20/18 10:00 12/29/18 10:54 Sodium Chloride Flush Syringe 10 Ml IV 10 ml BID BARB Administration Sodium Chloride 10 ml 12/20/18 06:00 Sodium Chloride Flush Syringe 10 Ml IV PRN PRN LINE FLUSH Nutrition/Malnutrition Assess - Dietary Evaluation Nutrition/Malnutrition Findings: Nutrition Notes Start: 12/27/18 1 0:12 Freq: Status: Active Protocol: Document 12/27/18 10:12 SA (Rec: 12/27/18 10:40 SA [email or web address]) Co-Sign 12/27/18 10:12 LP Nutrition Notes Need for Assessment generated from: LOS Initial or Follow up Assessment Current Diagnosis Heart Failure,Respiratory Failure Other Pertinent Diagnosis arthritis, seizures Current Diet Cardiac Labs/Tests Na: 135 BUN: 21 Glu: 104 M.6 Pertinent Medications Reviewed Height 5 ft 6 in Weight 94.3 kg [place] Body Weight (kg) 59.09 BMI 33.5 Weight Status Obese Subjective/Other Information Screened for LOS. Patient states appetite is not good. Pt reports eating 20% of meals. Pt denies N/V/D. Pt denies chewing/swallowing difficulty. Pt states UBW: 165 # but now more due to fluid overload. Pt interested in ONS . Burn Absent Trauma Absent Energy Intake (severe) < or equal to 50% Estimated Energy Requirement > or equal to 5 days Fluid Accumulation Moderate to Severe (severe) #2 Nutrition Diagnosis Malnutrition Etiology CHF/advanced age As Evidenced by Signs and Symptoms fluid accumulation and no appetite #1 Nutrition Diagnosis Inadequate oral intake Etiology poor appetite As Evidenced by Signs and Symptoms eating 20% of meals at hospital Is patient on ventilator? No Is Patient Ambulatory and/or Out of Bed No REE-([facility]-confined to bed) 7114.136 Calculation Used for Recommendations [facility] Additional Notes Protein: 94.3-113 g/day (1-1. 2g/kg) Fluid: 1 ml/kcal Nutrition Intervention Change Diet Order: Continue current Add Supplement/Snack (indicate name/kcal Ensure Enlive BID /protein ) Provides kCal: 700 Provides Protein (gm) 40 Goal #1 Meet at least 75% of needs via PO and ONS intake Anticipated Discharge Needs: Cardiac Follow-Up By: 12/31/18 Additional Comments F/U: PO and ONS intake
[2018-12-30] MEDS: FLAGYL PO SCH ×4 (05:39→21:18)
[2018-12-30 06:30] LABS: Hematocrit 25.9 % (30.3-42.9); Hemoglobin 8.6 gm/dl (10.1-14.3); Mean Corpuscular HGB Conc 33 % (30-34); Mean Corpuscular Volume 95 fl (79-97); Platelet Count 372 K/mm3 (140-440); Red Blood Count 2.72 M/mm3 (3.65-5.03)
[2018-12-30 06:36] LABS: Red Cell Distribution Width 20.2 % (13.2-15.2)
[2018-12-30 06:55] LABS: BUN/Creatinine Ratio 11; Blood Urea Nitrogen 10 mg/dL (7-17); Calcium 9.2 mg/dL (8.4-10.2); Hemolysis Index 1
[2018-12-30] MEDS ORDERED: MAGNESIUM SULFATE 4GM/100ML 4 GM/100 ML BAG IV ONE (08:43)
[2018-12-30] MEDS: KEPPRA PO SCH ×2 (10:40→21:17)
[2018-12-30] MEDS: LOVENOX SUB-Q SCH (10:40)
[2018-12-30] MEDS: PROTONIX PO SCH (10:41)
[2018-12-30] MEDS: MAG-OX PO SCH ×3 (10:41→19:59)
[2018-12-30] MEDS: SODIUM CHLORIDE FLUSH SYRINGE 10 ML IV SCH ×2 (10:41→21:18)
--- NOTE | 2018-12-30 13:36 | Progress Note ---
Assessment and Plan Assessment and plan: Patient is a 68 yo woman with history OA, CHF, chronic respiratory failure on home o2, seizure disorder not on meds for 5 years who presented with seizure like activity witnessed by the Son. She was found to have low magnesium at 0.4, low Na, K and Ca. CT head showed no acute process. She is on torsemide at home. * CXR: No acute pulmonary finding identified. Bibasilar scarring/fibrosis. * CT abdomen/pelvis; There is cholelithiasis.. There are no kidney stones. There is no hydronephrosis. There is diverticulosis of the colon. There is no diverticulitis, colitis, obstruction or mass. The appendix is normal. . There is air in the bladder. There is a left-sided bladder diverticulum.. There is no ascites, free air, abscess or adenopathy.. . * CT head: There is no acute intracranial abnormality. . * 2D echo: EF 60-65%, moderate to severe PHTN Status epilepticus suspected poa: continue anti-epileptics Dizziness, likely from severe PHTN and diarrhea- PT recommended GEE, cont supplemental O2, treat diarrhea Moderate to severe PHTN - cont home O2, consulted Pulmonary CHF, ruled out with 2d echo, has preserved EF Chronic respiratory failure, likely from severe pulmonary HTN, cont supplemental O2 Hypokalemia, repleted - likely from diuretics vs diarrhea? resolved SEVERE Hypomagnesemia, replace and monitor closely Hypocalcemia, repleted, elevated PTH and VitD pending hyponatremia, dehydration? - monitor BMP, RADHIKA, atn and vasomotor nephropathy, poa, on possible CKD 3, monitor renal function, consulted renal, renal US showed medical renal disease, Cr now stable Osteoarthritis, supportive care, PT recommended GEE Diarrhea, Patient does not appear toxic, will cont to treat empirically with flagyl for a week. stool study ordered for any infectious etiology, still pending DVT Px, lovenox Disposition: contnue inpatient care, monitor electrolytes daily and awaiting placement to GEE/SNF History Interval history: Patient was seen and examined. Follow-up on current diagnosis of SZ. Overnight uneventful. Patient denies any chest pain, shortness breath, nausea/vomiting or severe headaches. Imaging, nursing note, chart, labs and old chart reviewed. Discussed with patient. Hospitalist Physical - Physical exam Narrative exam: Gen: WDWN, NAD, Awake, Alert, Orientated HEENT: NCAT, EOMI, PERRL, OP Clear Neck: supple, no adenopathy, no thyromegaly, no JVD CVS/Heart: RRR, normal S1S2, pulses present bilaterally Chest/Lungs: Symmetrical chest expansion, good air entry bilaterally GI/Abdomen: soft, NTND, good bowel sounds, no guarding or rebound /Bladder: no suprapubic tenderness, no CVA or paraspinal tenderness Extermity/Skin: no c/c/e, no obvious rash MSK: FROM x 4 Neuro: CN 2-12 grossly intact, no new focal deficits Psych: calm - Constitutional Vitals: Temp Pulse Resp BP Pulse Ox 97.8 F 88 18 114/60 98 12/30/18 07:32 12/30/18 08:17 12/30/18 08:17 12/30/18 07:32 12/30/18 08:17 Results - Labs CBC & Chem 7: 12/30/18 05:36 12/30/18 05:36 Labs: Laboratory Last Values WBC 8.5 K/mm3 (4.5-11.0) 12/30/18 05:36 RBC 2.72 M/mm3 (3.65-5.03) L 12/30/18 05:36 Hgb 8.6 gm/dl (10.1-14.3) L 12/30/18 05:36 Hct 25.9 % (30.3-42.9) L 12/30/18 05:36 MCV 95 fl (79-97) 12/30/18 05:36 MCH 32 pg (28-32) 12/30/18 05:36 MCHC 33 % (30-34) 12/30/18 05:36 RDW 20.2 % (13.2-15.2) H 12/30/18 05:36 Plt Count 372 K/mm3 (140-440) 12/30/18 05:36 PT 15.1 Sec. (12.2-14.9) H 12/20/18 03:06 INR 1.12 (0.87-1.13) 12/20/18 03:06 POC ABG pH 7.359 (7.35-7.45) 12/25/18 14:23 POC ABG pCO2 42.6 (35-45) 12/25/18 14:23 POC ABG pO2 65 (80-105) L 12/25/18 14:23 POC ABG HCO3 24.0 (22-26 mml/L) 12/25/18 14:23 POC ABG Total CO2 25 (23-27mmol/L) 12/25/18 14:23 POC ABG O2 Sat 92 12/25/18 14:23 POC ABG Base Excess -1 ((-2) - (+3)mmol/L) 12/25/18 14:23 FiO2 21 % 12/25/18 14:23 Sodium 138 mmol/L (137-145) 12/30/18 05:36 Potassium 4.1 mmol/L (3.6-5.0) 12/30/18 05:36 Chloride 101.5 mmol/L (98-107) 12/30/18 05:36 Carbon Dioxide 26 mmol/L (22-30) 12/30/18 05:36 Anion Gap 15 mmol/L 12/30/18 05:36 BUN 10 mg/dL (7-17) 12/30/18 05:36 Creatinine 0.9 mg/dL (0.7-1.2) 12/30/18 05:36 Estimated GFR > 60 ml/min 12/30/18 05:36 BUN/Creatinine Ratio 11 % 12/30/18 05:36 Glucose 127 mg/dL (65-100) H 12/30/18 05:36 POC Glucose 98 (70-105) 12/22/18 12:57 Calcium 9.2 mg/dL (8.4-10.2) 12/30/18 05:36 Phosphorus 3.10 mg/dL (2.5-4.5) 12/22/18 07:42 Magnesium 1.20 mg/dL (1.7-2.3) L 12/30/18 05:36 Total Bilirubin 1.20 mg/dL (0.1-1.2) 12/20/18 03:06 AST 33 units/L (5-40) 12/20/18 03:06 ALT 17 units/L (7-56) 12/20/18 03:06 Alkaline Phosphatase 59 units/L (35-129) 12/20/18 03:06 Total Creatine Kinase 61 units/L (30-135) 12/22/18 07:42 NT-Pro-B Natriuret Pep 20368 pg/mL (0-900) H 12/20/18 03:06 Total Protein 6.3 g/dL (6.3-8.2) 12/20/18 03:06 Albumin 2.8 g/dL (3.9-5) L 12/20/18 03:06 Albumin/Globulin Ratio 0.8 % 12/20/18 03:06 25-OH Vitamin D Total See scanned results 12/22/18 13:10 25-Hydroxy Vitamin D2 See scanned results 12/22/18 13:10 25-Hydroxy Vitamin D3 See scanned results 12/22/18 13:10 PTH Intact 186.9 pg/mL (15-65) H 12/22/18 07:42 Urine Color Yellow (Yellow) 12/20/18 02:00 Urine Turbidity Slightly-cloudy (Clear) 12/20/18 02:00 Urine pH 5.0 (5.0-7.0) 12/20/18 02:00 Ur Specific [place] 1.008 (1.003-1.030) 12/20/18 02:00 Urine Protein <15 mg/dl mg/dL (Negative) 12/20/18 02:00 Urine Glucose (UA) Neg mg/dL (Negative) 12/20/18 02:00 Urine Ketones Neg mg/dL (Negative) 12/20/18 02:00 Urine Blood Neg (Negative) 12/20/18 02:00 Urine Nitrite Neg (Negative) 12/20/18 02:00 Urine Bilirubin Neg (Negative) 12/20/18 02:00 Urine Urobilinogen < 2.0 mg/dL (<2.0) 12/20/18 02:00 Ur Leukocyte Esterase Neg (Negative) 12/20/18 02:00 Urine WBC (Auto) 1.0 /HPF (0.0-6.0) 12/20/18 02:00 Urine RBC (Auto) 1.0 /HPF (0.0-6.0) 12/20/18 02:00 U Epithel Cells (Auto) 17.0 /HPF (0-13.0) H 12/20/18 02:00 Urine Bacteria (Auto) 1+ /HPF (Negative) 12/20/18 02:00 Amorphous Crystals 1+ 12/20/18 02:00 Hyaline Casts 7 /LPF 12/20/18 02:00 Urine Mucus Few /HPF 12/20/18 02:00 Urine Creatinine 85.8 mg/dL (0.1-20.0) H 12/22/18 00:25 Urine Sodium 21 mmol/L 12/22/18 00:25 Rheumatoid Factor 12 IU/ml (0-13) 12/28/18 12:41 Active Medications - Current Medications Current Medications: Generic Name Dose Route Start Last Admin Trade Name Freq PRN Reason Stop Dose Admin Acetaminophen 650 mg 12/20/18 06:00 12/27/18 10:52 Tylenol PO 650 mg Q4H PRN Administration Pain MILD(1-3)/Fever >100.5/HURTADO Albuterol 2.5 mg 12/21/18 02:00 12/21/18 11:51 Proventil IH 2.5 mg Q4HRT PRN Administration Shortness Of Breath Enoxaparin Sodium 40 mg 12/21/18 12:00 12/30/18 10:40 Lovenox SUB-Q 40 mg QDAY@1000 BARB Administration Levetiracetam 750 mg 12/23/18 22:00 12/30/18 10:40 Keppra PO 750 mg BID BARB Administration Loperamide HCl 2 mg 12/24/18 12:22 12/28/18 20:18 Imodium PO 2 mg Q2H PRN Administration Diarrhea Lorazepam 1 mg 12/20/18 06:07 Ativan IV Q1H PRN Seizures Metronidazole 500 mg 12/24/18 14:00 12/30/18 13:01 Flagyl PO 12/30/18 23:59 500 mg Q8HR BARB Administration Protocol Ondansetron HCl 4 mg 12/20/18 06:00 Zofran IV Q8H PRN Nausea And Vomiting Pantoprazole Sodium 40 mg 12/25/18 14:00 12/30/18 10:41 Protonix PO 40 mg QDAY BARB Administration Sodium Chloride 10 ml 12/20/18 10:00 12/30/18 10:41 Sodium Chloride Flush Syringe 10 Ml IV 10 ml BID BARB Administration Sodium Chloride 10 ml 12/20/18 06:00 Sodium Chloride Flush Syringe 10 Ml IV PRN PRN LINE FLUSH Nutrition/Malnutrition Assess - Dietary Evaluation Nutrition/Malnutrition Findings: Nutrition Notes Start: 12/27/18 10:12 Freq: Status: Active Protocol: Document 12/27/18 10:12 SA (Rec: 12/27/18 10:40 [email or web address]) Co-Sign 12/27/18 10:12 LP Nutrition Notes Need for Assessment generated from: LOS Initial or Follow up Assessment Current Diagnosis Heart Failure,Respiratory Failure Other Pertinent Diagnosis arthritis, seizures Current Diet Cardiac Labs/Tests Na: 135 BUN: 21 Glu: 104 M.6 Pertinent Medications Reviewed Height 5 ft 6 in Weight 94.3 kg [place] Body Weight (kg) 59.09 BMI 33.5 Weight Status Obese Subjective/Other Information Screened for LOS. Patient states appetite is not good. Pt reports eating 20% of meals. Pt denies N/V/D. Pt denies chewing/swallowing difficulty. Pt states UBW: 165 # but now more due to fluid overload. Pt interested in ONS . Burn Absent Trauma Absent Energy Intake (severe) < or equal to 50% Estimated Energy Requirement > or equal to 5 days Fluid Accumulation Moderate to Severe (severe) #2 Nutrition Diagnosis Malnutrition Etiology CHF/advanced age As Evidenced by Signs and Symptoms fluid accumulation and no appetite #1 Nutrition Diagnosis Inadequate oral intake Etiology poor appetite As Evidenced by Signs and Symptoms eating 20% of meals at hospital Is patient on ventilator? No Is Patient Ambulatory and/or Out of Bed No REE-([facility]-confined to bed) 9260.292 Calculation Used for Recommendations [facility] Additional Notes Protein: 94.3-113 g/day (1-1. 2g/kg) Fluid: 1 ml/kcal Nutrition Intervention Change Diet Order: Continue current Add Supplement/Snack (indicate name/kcal Ensure Enlive BID /protein ) Provides kCal: 700 Provides Protein (gm) 40 Goal #1 Meet at least 75% of needs via PO and ONS intake Anticipated Discharge Needs: Cardiac Follow-Up By: 12/31/18 Additional Comments F/U: PO and ONS intake
--- NOTE | 2018-12-30 13:54 | Progress Note ---
Assessment and Plan Chronic hypoxemic respiratory failure Severe pulmonary HTN Pulmonary fibrosis Mediastinal adenopathy Acute seizure, could have been secondary to arrhythmias , Pulm HTN Acute kidney injury-Vasomotor RADHIKA due to volume depletion. Hyponatremia - continue with supplemental oxygen to keep O2 sat's > 90% and compliance with the oxygen therapy encouraged - Right heart cath to evaluate pulmonary pressures, this is possibly Group 3 PHTN - Work up for pulmonary HTN- get collagen vascular studies, MICHAEL, CARMEN level, Hepatitis screen - Will need outpatient sleep study as part of her work up for pulmonary HTN - Out patient pulmonary follow up on discharge - VTE prophylaxis - PT/OT/Mobility as tolerated - Bronchodilators per protocol - Avoid nephrotoxic agents - Seizure prophylaxis - continue other care per attending / other consultants ... re-evaluate in am & prn Subjective Date of service: 12/30/18 Principal diagnosis: Chronic respiratory failure, Severe pulmonary HTN; Pulmonary fibrosis Interval history: Patient is seen today for: Chronic respiratory failure, Severe pulmonary HTN; Pulmonary fibrosis Seen and examined at bedside; 24-hour events reviewed; nursing and respiratory care staff consulted; no adverse overnight events reported to me; resting in bed; remains on supplemental oxygen; No N/V/F/C' no chest pains or palpitations Objective Vital Signs - 12hr 12/30/18 12/30/18 12/30/18 01:55 07:32 08:17 Temperature 97.6 F 97.8 F Pulse Rate 91 H 92 H Pulse Rate [ 88 Left Radial] Respiratory 20 16 18 Rate Blood Pressure 106/47 114/60 O2 Sat by Pulse 99 98 98 Oximetry Constitutional: no acute distress, alert, other (elderly looking obese AAF, nor mocephalic and atraumatic) Eyes: non-icteric ENT: oropharynx moist Neck: supple, no JVD Effort: mildly labored Ascultation: Bilateral: diminished breath sounds (basilar inspiratory rales) Percussion: Bilateral: not dull Cardiovascular: regular rate and rhythm, other (S1,S2, no murmurs, gallops or rubs) Gastrointestinal: normoactive bowel sounds, soft, non-tender, non-distended Integumentary: normal Extremities: no cyanosis, no edema, pulses normal, no ischemia or petechiae Neurologic: normal mental status, non-focal exam, pupils equal and round, CN II- XII normal, motor strength normal and Psychiatric: mood appropriate, affect normal CBC and BMP: 01/01/19 07:03 01/01/19 07:03 ABG, PT/INR, D-dimer: ABG POC ABG pH 7.359 (7.35-7.45) 12/25/18 14:23 POC ABG pCO2 42.6 (35-45) 12/25/18 14:23 POC ABG pO2 65 (80-105) L 12/25/18 14:23 POC ABG HCO3 24.0 (22-26 mml/L) 12/25/18 14:23 POC ABG Total CO2 25 (23-27mmol/L) 12/25/18 14:23 POC ABG O2 Sat 92 12/25/18 14:23 PT/INR, D-dimer PT 15.1 Sec. (12.2-14.9) H 12/20/18 03:06 INR 1.12 (0.87-1.13) 12/20/18 03:06 Abnormal lab findings: Abnormal Labs 12/20/18 12/20/18 12/20/18 02:00 03:06 03:06 WBC 14.4 H RBC 3.55 L Hgb Hct RDW 19.9 H PT 15.1 H POC ABG pO2 Sodium Potassium Chloride BUN Creatinine Glucose Calcium Magnesium Total Creatine Kinase NT-Pro-B Natriuret Pep Albumin PTH Intact U Epithel Cells (Auto) 17.0 H Urine Creatinine 12/20/18 12/20/18 12/21/18 03:06 07:39 06:08 WBC RBC Hgb Hct RDW PT POC ABG pO2 Sodium 129 L 130 L Potassium 3.0 L Chloride 86.1 L 88.9 L BUN 35 H 43 H Creatinine 1.4 H 1.6 H Glucose 125 H 131 H Calcium 6.0 L 6.3 L Magnesium 0.40 L* 1.00 L 1.00 L Total Creatine Kinase 238 H NT-Pro-B Natriuret Pep 10288 H Albumin 2.8 L PTH Intact U Epithel Cells (Auto) Urine Creatinine 12/22/18 12/22/18 12/22/18 00:25 07:42 07:42 WBC RBC Hgb Hct RDW PT POC ABG pO2 Sodium 131 L Potassium 3.3 L Chloride 91.8 L BUN 41 H Creatinine 1.4 H Glucose 118 H Calcium 7.3 L D Magnesium 1.60 L Total Creatine Kinase NT-Pro-B Natriuret Pep Albumin PTH Intact 186.9 H U Epithel Cells (Auto) Urine Creatinine 85.8 H 12/23/18 12/24/18 12/25/18 08:05 06:53 06:09 WBC RBC Hgb Hct RDW PT POC ABG pO2 Sodium 133 L 133 L Potassium Chloride 97.3 L BUN 31 H 26 H 26 H Creatinine Glucose 102 H 109 H 104 H Calcium Magnesium 1.30 L Total Creatine Kinase NT-Pro-B Natriuret Pep Albumin PTH Intact U Epithel Cells (Auto) Urine Creatinine 12/25/18 12/26/18 12/27/18 14:23 07:12 04:09 WBC RBC Hgb Hct RDW PT POC ABG pO2 65 L Sodium 135 L Potassium Chloride BUN 21 H Creatinine Glucose 104 H Calcium Magnesium 1.60 L 1.60 L Total Creatine Kinase NT-Pro-B Natriuret Pep Albumin PTH Intact U Epithel Cells (Auto) Urine Creatinine 12/28/18 12/30/18 12/30/18 05:24 05:36 05:36 WBC RBC 2.72 L Hgb 8.6 L Hct 25.9 L RDW 20.2 H PT POC ABG pO2 Sodium 136 L Potassium Chloride BUN Creatinine Glucose 127 H Calcium Magnesium 1.20 L Total Creatine Kinase NT-Pro-B Natriuret Pep Albumin PTH Intact U Epithel Cells (Auto) Urine Creatinine Chest x-ray: image reviewed Allied health notes reviewed: nursing
[2018-12-30] MEDS ORDERED: MAGNESIUM SULFATE 2GM/50ML 2 GM/50 ML BAG IV ONE (14:00)
--- NOTE | 2018-12-30 14:01 | Progress Note ---
Assessment and Plan 1. Acute kidney injury: Vasomotor RADHIKA due to volume depletion. Renal US negative for hydro. Renal function is better. Monitor renal function. Avoid nephrotoxic agents. Meds dosage based on GFR. 2. FEN: Hypomagnesemia, replete Mg as needed. Likely from diarrhea. Hypokalemia, improved. Monitor lytes. 3. Chronic hypoxemic respiratory failure. 4. Severe pulmonary HTN: Pulmonary fibrosis. 5. Seizures. 6. Diarrhea. Subjective Date of service: 12/30/18 Principal diagnosis: Chronic respiratory failure, Severe pulmonary HTN; Pulmonary fibrosis Interval history: Patient was seen and examined at the bedside. Continues to have diarrhea. Objective - Vital Signs Vital signs: Vital Signs - 12hr 12/30/18 12/30/18 07:32 08:17 Temperature 97.8 F Pulse Rate 92 H Pulse Rate [ 88 Left Radial] Respiratory 16 18 Rate Blood Pressure 114/60 O2 Sat by Pulse 98 98 Oximetry - General Appearance General appearance: well-developed, well-nourished, appears stated age, other (not in distress) EENT: ATNC, PERRL, mucous membranes moist, hearing intact, vision intact Neck: supple Respiratory: Present: Clear to Ascultation Cardiology: regular, S1S2, no murmurs Gastrointestinal: normoactive bowel sounds, no tenderness, no distended Integumentary: no rash, warm and dry Neurologic: no focal deficit, no asterixis, alert and oriented x3 Musculoskeletal: other (no edema) Psychiatric: cooperative - Lab 12/30/18 05:36 12/30/18 05:36 Most recent lab results Calcium 9.2 mg/dL (8.4-10.2) 12/30/18 05:36 Phosphorus 3.10 mg/dL (2.5-4.5) 12/22/18 07:42 Magnesium 1.20 mg/dL (1.7-2.3) L 12/30/18 05:36 Urine Creatinine 85.8 mg/dL (0.1-20.0) H 12/22/18 00:25 Urine Sodium 21 mmol/L 12/22/18 00:25 Medications & Allergies - Medications Allergies/Adverse Reactions: Allergies lisinopril Allergy (Verified 08/13/13 15:50) Angioedema Home Medications: Home Medications Medication Instructions Recorded Confirmed Last Taken Type Carvedilol [Coreg] 3.125 mg PO DAILY 12/20/18 12/20/18 Unknown History Iron [Iron 18 MG TAB] 18 mg PO QDAY 12/20/18 12/20/18 Unknown History Omeprazole 20 mg PO DAILY 12/20/18 12/20/18 Unknown History Potassium Chloride [K-Dur] 10 meq PO BID 12/20/18 12/20/18 Unknown History Loperamide [Imodium] 2 mg PO Q2HR PRN #10 capsule 12/23/18 Unknown Rx Magnesium Oxide [Magnesium] 200 mg PO DAILY #10 tab.chew 12/23/18 Unknown Rx levETIRAcetam [Keppra TAB] 750 mg PO BID #60 tablet 12/23/18 Unknown Rx Active Medications: Generic Name Dose Route Start Last Admin Trade Name Freq PRN Reason Stop Dose Admin Acetaminophen 650 mg 12/20/18 06:00 12/27/18 10:52 Tylenol PO 650 mg Q4H PRN Administration Pain MILD(1-3)/Fever >100.5/HURTADO Albuterol 2.5 mg 12/21/18 02:00 12/21/18 11:51 Proventil IH 2.5 mg Q4HRT PRN Administration Shortness Of Breath Enoxaparin Sodium 40 mg 12/21/18 12:00 12/30/18 10:40 Lovenox SUB-Q 40 mg QDAY@1000 BARB Administration Magnesium Sulfate 2 gm in 50 mls @ 25 mls/hr 12/30/18 14:00 Magnesium Sulfate 2gm/50ml IV 12/30/18 15:59 ONCE ONE Levetiracetam 750 mg 12/23/18 22:00 12/30/18 10:40 Keppra PO 750 mg BID BARB Administration Loperamide HCl 2 mg 12/24/18 12:22 12/28/18 20:18 Imodium PO 2 mg Q2H PRN Administration Diarrhea Lorazepam 1 mg 12/20/18 06:07 Ativan IV Q1H PRN Seizures Magnesium Oxide 400 mg 12/30/18 14:00 Mag-Ox PO TID BARB Metronidazole 500 mg 12/24/18 14:00 12/30/18 13:01 Flagyl PO 12/30/18 23:59 500 mg Q8HR BARB Administration Protocol Ondansetron HCl 4 mg 12/20/18 06:00 Zofran IV Q8H PRN Nausea And Vomiting Pantoprazole Sodium 40 mg 12/25/18 14:00 12/30/18 10:41 Protonix PO 40 mg QDAY BARB Administration Sodium Chloride 10 ml 12/20/18 10:00 12/30/18 10:41 Sodium Chloride Flush Syringe 10 Ml IV 10 ml BID BARB Administration Sodium Chloride 10 ml 12/20/18 06:00 Sodium Chloride Flush Syringe 10 Ml IV PRN PRN LINE FLUSH
[2018-12-31 06:27] LABS: Hemoglobin 8.9 gm/dl (10.1-14.3)
[2018-12-31 06:28] LABS: Hematocrit 27.6 % (30.3-42.9); Mean Corpuscular HGB Conc 32 % (30-34); Mean Corpuscular Volume 95 fl (79-97); Platelet Count 378 K/mm3 (140-440)
[2018-12-31 06:29] LABS: BUN/Creatinine Ratio 10; Blood Urea Nitrogen 8 mg/dL (7-17); Calcium 9.5 mg/dL (8.4-10.2); Hemolysis Index 1
[2018-12-31] MEDS: PROTONIX PO SCH (10:23)
[2018-12-31] MEDS: KEPPRA PO SCH ×2 (10:24→21:06)
[2018-12-31] MEDS: LOVENOX SUB-Q SCH (10:24)
[2018-12-31] MEDS: MAG-OX PO SCH ×3 (10:24→21:00)
--- NOTE | 2018-12-31 11:45 | Progress Note ---
Assessment and Plan Assessment and plan: Patient is a 68 yo woman with history OA, CHF, chronic respiratory failure on home o2, seizure disorder not on meds for 5 years who presented with seizure like activity witnessed by the Son. She was found to have low magnesium at 0.4, low Na, K and Ca. CT head showed no acute process. She is on torsemide at home. * CXR: No acute pulmonary finding identified. Bibasilar scarring/fibrosis. * CT abdomen/pelvis; There is cholelithiasis.. There are no kidney stones. There is no hydronephrosis. There is diverticulosis of the colon. There is no diverticulitis, colitis, obstruction or mass. The appendix is normal. . There is air in the bladder. There is a left-sided bladder diverticulum.. There is no ascites, free air, abscess or adenopathy.. . * CT head: There is no acute intracranial abnormality. . * 2D echo: EF 60-65%, moderate to severe PHTN Status epilepticus suspected poa: continue anti-epileptics Dizziness, likely from severe PHTN and diarrhea- PT recommended GEE, cont supplemental O2, treat diarrhea Moderate to severe PHTN - cont home O2, consulted Pulmonary CHF, ruled out with 2d echo, has preserved EF Chronic respiratory failure, likely from severe pulmonary HTN, cont supplemental O2 Hypokalemia, repleted - likely from diuretics vs diarrhea? resolved SEVERE Hypomagnesemia, replace and monitor closely Hypocalcemia, repleted, elevated PTH and VitD pending hyponatremia, dehydration? - monitor BMP, RADHIKA, atn and vasomotor nephropathy, poa, on possible CKD 3, monitor renal function, consulted renal, renal US showed medical renal disease, Cr now stable Osteoarthritis, supportive care, PT recommended GEE Diarrhea, Patient does not appear toxic, will cont to treat empirically with flagyl for a week; stool study ordered for any infectious etiology, still pending DVT Px, lovenox Disposition: continue inpatient care, monitor electrolytes daily and awaiting placement to GEE/SNF, insurance authorization still pending History Interval history: Patient was seen and examined. Follow-up on current diagnosis of SZ. Overnight uneventful. Patient denies any chest pain, shortness breath, nausea/vomiting or severe headaches. Imaging, nursing note, chart, labs and old chart reviewed. Discussed with patient. Hospitalist Physical - Physical exam Narrative exam: Gen: WDWN, NAD, Awake, Alert, Orientated HEENT: NCAT, EOMI, PERRL, OP Clear Neck: supple, no adenopathy, no thyromegaly, no JVD CVS/Heart: RRR, normal S1S2, pulses present bilaterally Chest/Lungs: Symmetrical chest expansion, good air entry bilaterally GI/Abdomen: soft, NTND, good bowel sounds, no guarding or rebound /Bladder: no suprapubic tenderness, no CVA or paraspinal tenderness Extermity/Skin: no c/c/e, no obvious rash MSK: FROM x 4 Neuro: CN 2-12 grossly intact, no new focal deficits Psych: calm - Constitutional Vitals: Temp Pulse Resp BP Pulse Ox 98.3 F 85 20 116/67 98 12/31/18 07:47 12/31/18 07:47 12/31/18 07:47 12/31/18 07:47 12/31/18 09:14 Results - Labs CBC & Chem 7: 12/31/18 05:36 12/31/18 05:36 Labs: Laboratory Last Values WBC 6.7 K/mm3 (4.5-11.0) 12/31/18 05:36 RBC 2.90 M/mm3 (3.65-5.03) L 12/31/18 05:36 Hgb 8.9 gm/dl (10.1-14.3) L 12/31/18 05:36 Hct 27.6 % (30.3-42.9) L 12/31/18 05:36 MCV 95 fl (79-97) 12/31/18 05:36 MCH 31 pg (28-32) 12/31/18 05:36 MCHC 32 % (30-34) 12/31/18 05:36 RDW 20.0 % (13.2-15.2) H 12/31/18 05:36 Plt Count 378 K/mm3 (140-440) 12/31/18 05:36 PT 15.1 Sec. (12.2-14.9) H 12/20/18 03:06 INR 1.12 (0.87-1.13) 12/20/18 03:06 POC ABG pH 7.359 (7.35-7.45) 12/25/18 14:23 POC ABG pCO2 42.6 (35-45) 12/25/18 14:23 POC ABG pO2 65 (80-105) L 12/25/18 14:23 POC ABG HCO3 24.0 (22-26 mml/L) 12/25/18 14:23 POC ABG Total CO2 25 (23-27mmol/L) 12/25/18 14:23 POC ABG O2 Sat 92 12/25/18 14:23 POC ABG Base Excess -1 ((-2) - (+3)mmol/L) 12/25/18 14:23 FiO2 21 % 12/25/18 14:23 Sodium 137 mmol/L (137-145) 12/31/18 05:36 Potassium 4.0 mmol/L (3.6-5.0) 12/31/18 05:36 Chloride 100.8 mmol/L (98-107) 12/31/18 05:36 Carbon Dioxide 27 mmol/L (22-30) 12/31/18 05:36 Anion Gap 13 mmol/L 12/31/18 05:36 BUN 8 mg/dL (7-17) 12/31/18 05:36 Creatinine 0.8 mg/dL (0.7-1.2) 12/31/18 05:36 Estimated GFR > 60 ml/min 12/31/18 05:36 BUN/Creatinine Ratio 10 % 12/31/18 05:36 Glucose 119 mg/dL (65-100) H 12/31/18 05:36 POC Glucose 98 (70-105) 12/22/18 12:57 Calcium 9.5 mg/dL (8.4-10.2) 12/31/18 05:36 Phosphorus 3.10 mg/dL (2.5-4.5) 12/22/18 07:42 Magnesium 1.70 mg/dL (1.7-2.3) 12/31/18 05:36 Total Bilirubin 1.20 mg/dL (0.1-1.2) 12/20/18 03:06 AST 33 units/L (5-40) 12/20/18 03:06 ALT 17 units/L (7-56) 12/20/18 03:06 Alkaline Phosphatase 59 units/L (35-129) 12/20/18 03:06 Total Creatine Kinase 61 units/L (30-135) 12/22/18 07:42 NT-Pro-B Natriuret Pep 07766 pg/mL (0-900) H 12/20/18 03:06 Total Protein 6.3 g/dL (6.3-8.2) 12/20/18 03:06 Albumin 2.8 g/dL (3.9-5) L 12/20/18 03:06 Albumin/Globulin Ratio 0.8 % 12/20/18 03:06 25-OH Vitamin D Total See scanned results 12/22/18 13:10 25-Hydroxy Vitamin D2 See scanned results 12/22/18 13:10 25-Hydroxy Vitamin D3 See scanned results 12/22/18 13:10 PTH Intact 186.9 pg/mL (15-65) H 12/22/18 07:42 Urine Color Yellow (Yellow) 12/20/18 02:00 Urine Turbidity Slightly-cloudy (Clear) 12/20/18 02:00 Urine pH 5.0 (5.0-7.0) 12/20/18 02:00 Ur Specific Hooper 1.008 (1.003-1.030) 12/20/18 02:00 Urine Protein <15 mg/dl mg/dL (Negative) 12/20/18 02:00 Urine Glucose (UA) Neg mg/dL (Negative) 12/20/18 02:00 Urine Ketones Neg mg/dL (Negative) 12/20/18 02:00 Urine Blood Neg (Negative) 12/20/18 02:00 Urine Nitrite Neg (Negative) 12/20/18 02:00 Urine Bilirubin Neg (Negative) 12/20/18 02:00 Urine Urobilinogen < 2.0 mg/dL (<2.0) 12/20/18 02:00 Ur Leukocyte Esterase Neg (Negative) 12/20/18 02:00 Urine WBC (Auto) 1.0 /HPF (0.0-6.0) 12/20/18 02:00 Urine RBC (Auto) 1.0 /HPF (0.0-6.0) 12/20/18 02:00 U Epithel Cells (Auto) 17.0 /HPF (0-13.0) H 12/20/18 02:00 Urine Bacteria (Auto) 1+ /HPF (Negative) 12/20/18 02:00 Amorphous Crystals 1+ 12/20/18 02:00 Hyaline Casts 7 /LPF 12/20/18 02:00 Urine Mucus Few /HPF 12/20/18 02:00 Urine Creatinine 85.8 mg/dL (0.1-20.0) H 12/22/18 00:25 Urine Sodium 21 mmol/L 12/22/18 00:25 Rheumatoid Factor 12 IU/ml (0-13) 12/28/18 12:41 Active Medications - Current Medications Current Medications: Generic Name Dose Route Start Last Admin Trade Name Freq PRN Reason Stop Dose Admin Acetaminophen 650 mg 12/20/18 06:00 12/27/18 10:52 Tylenol PO 650 mg Q4H PRN Administration Pain MILD(1-3)/Fever >100.5/HURTADO Albuterol 2.5 mg 12/21/18 02:00 12/21/18 11:51 Proventil IH 2.5 mg Q4HRT PRN Administration Shortness Of Breath Enoxaparin Sodium 40 mg 12/21/18 12:00 12/31/18 10:24 Lovenox SUB-Q 40 mg QDAY@1000 BARB Administration Levetiracetam 750 mg 12/23/18 22:00 12/31/18 10:24 Keppra PO 750 mg BID BARB Administration Loperamide HCl 2 mg 12/24/18 12:22 12/28/18 20:18 Imodium PO 2 mg Q2H PRN Administration Diarrhea Lorazepam 1 mg 12/20/18 06:07 Ativan IV Q1H PRN Seizures Magnesium Oxide 400 mg 12/30/18 14:00 12/31/18 10:24 Mag-Ox PO 400 mg TID BARB Administration Ondansetron HCl 4 mg 12/20/18 06:00 Zofran IV Q8H PRN Nausea And Vomiting Pantoprazole Sodium 40 mg 12/25/18 14:00 12/31/18 10:23 Protonix PO 40 mg QDAY BARB Administration Sodium Chloride 10 ml 12/20/18 10:00 12/30/18 21:18 Sodium Chloride Flush Syringe 10 Ml IV 10 ml BID BARB Administration Sodium Chloride 10 ml 12/20/18 06:00 Sodium Chloride Flush Syringe 10 Ml IV PRN PRN LINE FLUSH Nutrition/Malnutrition Assess - Dietary Evaluation Nutrition/Malnutrition Findings: Nutrition Notes Start: 12/27/18 10:12 Freq: Status: Active Protocol: Document 12/27/18 10:12 SA (Rec: 12/27/18 10:40 SA [id number]) Co-Sign 12/27/18 10:12 LP Nutrition Notes Need for Assessment generated from: LOS Initial or Follow up Assessment Current Diagnosis Heart Failure,Respiratory Failure Other Pertinent Diagnosis arthritis, seizures Current Diet Cardiac Labs/Tests Na: 135 BUN: 21 Glu: 104 M.6 Pertinent Medications Reviewed Height 5 ft 6 in Weight 94.3 kg [place] Body Weight (kg) 59.09 BMI 33.5 Weight Status Obese Subjective/Other Information Screened for LOS. Patient states appetite is not good. Pt reports eating 20% of meals. Pt denies N/V/D. Pt denies chewing/swallowing difficulty. Pt states UBW: 165 # but now more due to fluid overload. Pt interested in ONS . Burn Absent Trauma Absent Energy Intake (severe) < or equal to 50% Estimated Energy Requirement > or equal to 5 days Fluid Accumulation Moderate to Severe (severe) #2 Nutrition Diagnosis Malnutrition Etiology CHF/advanced age As Evidenced by Signs and Symptoms fluid accumulation and no appetite #1 Nutrition Diagnosis Inadequate oral intake Etiology poor appetite As Evidenced by Signs and Symptoms eating 20% of meals at hospital Is patient on ventilator? No Is Patient Ambulatory and/or Out of Bed No REE-([facility]-confined to bed) [phone] Calculation Used for Recommendations [facility] Additional Notes Protein: 94.3-113 g/day (1-1. 2g/kg) Fluid: 1 ml/kcal Nutrition Intervention Change Diet Order: Continue current Add Supplement/Snack (indicate name/kcal Ensure Enlive BID /protein ) Provides kCal: 700 Provides Protein (gm) 40 Goal #1 Meet at least 75% of needs via PO and ONS intake Anticipated Discharge Needs: Cardiac Follow-Up By: 12/31/18 Additional Comments F/U: PO and ONS intake
--- NOTE | 2018-12-31 13:00 | Progress Note ---
Assessment and Plan 1. Acute kidney injury: Vasomotor RADHIKA due to volume depletion. Renal US negative for hydro. Renal function is better. Monitor renal function. Avoid nephrotoxic agents. Meds dosage based on GFR. 2. FEN: Hypomagnesemia, replete Mg as needed. Likely from diarrhea. Hypokalemia, improved. Monitor lytes. 3. Chronic hypoxemic respiratory failure. 4. Severe pulmonary HTN: Pulmonary fibrosis. 5. Seizures. 6. Diarrhea. Subjective Date of service: 12/31/18 Principal diagnosis: Chronic respiratory failure, Severe pulmonary HTN; Pulmonary fibrosis Interval history: Patient was seen and examined at the bedside. Diarrhea is better. Objective - Vital Signs Vital signs: Vital Signs - 12hr 12/31/18 12/31/18 12/31/18 02:04 07:47 09:14 Temperature 98.6 F 98.3 F Pulse Rate 92 H 85 Pulse Rate [ Right Brachial] Respiratory 20 20 Rate Blood Pressure 117/57 116/67 O2 Sat by Pulse 96 97 98 Oximetry 12/31/18 10:00 Temperature Pulse Rate Pulse Rate [ 80 Right Brachial] Respiratory Rate Blood Pressure O2 Sat by Pulse 97 Oximetry - General Appearance General appearance: well-developed, well-nourished, appears stated age, other (not in distress) EENT: ATNC, PERRL, mucous membranes moist, hearing intact, vision intact Neck: supple Respiratory: Present: Clear to Ascultation Cardiology: regular, S1S2, no murmurs Gastrointestinal: normoactive bowel sounds, no tenderness, no distended Integumentary: no rash, warm and dry Neurologic: no focal deficit, no asterixis, alert and oriented x3 Musculoskeletal: other (no edema) - Lab 12/31/18 05:36 12/31/18 05:36 Most recent lab results Calcium 9.5 mg/dL (8.4-10.2) 12/31/18 05:36 Phosphorus 3.10 mg/dL (2.5-4.5) 12/22/18 07:42 Magnesium 1.70 mg/dL (1.7-2.3) 12/31/18 05:36 Urine Creatinine 85.8 mg/dL (0.1-20.0) H 12/22/18 00:25 Urine Sodium 21 mmol/L 12/22/18 00:25 Medications & Allergies - Medications Allergies/Adverse Reactions: Allergies lisinopril Allergy (Verified 08/13/13 15:50) Angioedema Home Medications: Home Medications Medication Instructions Recorded Confirmed Last Taken Type Carvedilol [Coreg] 3.125 mg PO DAILY 12/20/18 12/20/18 Unknown History Iron [Iron 18 MG TAB] 18 mg PO QDAY 12/20/18 12/20/18 Unknown History Omeprazole 20 mg PO DAILY 12/20/18 12/20/18 Unknown History Potassium Chloride [K-Dur] 10 meq PO BID 12/20/18 12/20/18 Unknown History Loperamide [Imodium] 2 mg PO Q2HR PRN #10 capsule 12/23/18 Unknown Rx Magnesium Oxide [Magnesium] 200 mg PO DAILY #10 tab.chew 12/23/18 Unknown Rx levETIRAcetam [Keppra TAB] 750 mg PO BID #60 tablet 12/23/18 Unknown Rx Active Medications: Generic Name Dose Route Start Last Admin Trade Name Freq PRN Reason Stop Dose Admin Acetaminophen 650 mg 12/20/18 06:00 12/27/18 10:52 Tylenol PO 650 mg Q4H PRN Administration Pain MILD(1-3)/Fever >100.5/HURTADO Albuterol 2.5 mg 12/21/18 02:00 12/21/18 11:51 Proventil IH 2.5 mg Q4HRT PRN Administration Shortness Of Breath Enoxaparin Sodium 40 mg 12/21/18 12:00 12/31/18 10:24 Lovenox SUB-Q 40 mg QDAY@1000 BARB Administration Levetiracetam 750 mg 12/23/18 22:00 12/31/18 10:24 Keppra PO 750 mg BID BARB Administration Loperamide HCl 2 mg 12/24/18 12:22 12/28/18 20:18 Imodium PO 2 mg Q2H PRN Administration Diarrhea Lorazepam 1 mg 12/20/18 06:07 Ativan IV Q1H PRN Seizures Magnesium Oxide 400 mg 12/30/18 14:00 12/31/18 10:24 Mag-Ox PO 400 mg TID BARB Administration Ondansetron HCl 4 mg 12/20/18 06:00 Zofran IV Q8H PRN Nausea And Vomiting Pantoprazole Sodium 40 mg 12/25/18 14:00 12/31/18 10:23 Protonix PO 40 mg QDAY BARB Administration Sodium Chloride 10 ml 12/20/18 10:00 12/30/18 21:18 Sodium Chloride Flush Syringe 10 Ml IV 10 ml BID BARB Administration Sodium Chloride 10 ml 12/20/18 06:00 Sodium Chloride Flush Syringe 10 Ml IV PRN PRN LINE FLUSH
[2018-12-31] MEDS: SODIUM CHLORIDE FLUSH SYRINGE 10 ML IV SCH ×2 (14:06→21:07)
--- NOTE | 2018-12-31 14:31 | Progress Note ---
Assessment and Plan Patient awake and resting on 2 2 litres. O2 saturation 95%.No complaint of chest pain,shortness of breath and cough. - Patient Problems (1) Fluid overload Current Visit: Yes Status: Acute Plan to address problem: Reduce I/V fluids. (2) Breakthrough seizure Current Visit: Yes Status: Acute Plan to address problem: Patient is on Keppra and Lorazepam (3) Pulmonary fibrosis Current Visit: Yes Status: Acute Plan to address problem: Bibasilar scarring and fibrosis. MICHAEL, CARMEN level, CANCA PFTs as out patient. Subjective Date of service: 12/31/18 Principal diagnosis: Chronic respiratory failure, Severe pulmonary HTN; Pulmonary fibrosis Interval history: Patient awake and resting on 2 2 litres. O2 saturation 95%.No complaint of chest pain,shortness of breath and cough. Objective Vital Signs - 12hr 12/31/18 12/31/18 12/31/18 07:47 09:14 10:00 Temperature 98.3 F Pulse Rate 85 Pulse Rate [ 80 Right Brachial] Respiratory 20 Rate Blood Pressure 116/67 O2 Sat by Pulse 97 98 97 Oximetry Constitutional: no acute distress, alert, other (elderly looking obese AAF, normocephalic and atraumatic) Eyes: non-icteric ENT: oropharynx moist Neck: supple, no JVD Effort: mildly labored Ascultation: Bilateral: diminished breath sounds (basilar inspiratory crackles) Percussion: Bilateral: not dull Cardiovascular: regular rate and rhythm, other (S1,S2, no murmurs, gallops or rubs) Gastrointestinal: normoactive bowel sounds, soft, non-tender, non-distended Integumentary: normal Extremities: no cyanosis, no edema, pulses normal, no ischemia or petechiae Neurologic: normal mental status, non-focal exam, pupils equal and round, CN II- XII normal, motor strength normal and Psychiatric: mood appropriate, affect normal CBC and BMP: 12/31/18 05:36 12/31/18 05:36 ABG, PT/INR, D-dimer: ABG POC ABG pH 7.359 (7.35-7.45) 12/25/18 14:23 POC ABG pCO2 42.6 (35-45) 12/25/18 14:23 POC ABG pO2 65 (80-105) L 12/25/18 14:23 POC ABG HCO3 24.0 (22-26 mml/L) 12/25/18 14:23 POC ABG Total CO2 25 (23-27mmol/L) 12/25/18 14:23 POC ABG O2 Sat 92 12/25/18 14:23 PT/INR, D-dimer PT 15.1 Sec. (12.2-14.9) H 12/20/18 03:06 INR 1.12 (0.87-1.13) 12/20/18 03:06 Abnormal lab findings: Abnormal Labs 12/20/18 12/20/18 12/20/18 02:00 03:06 03:06 WBC 14.4 H RBC 3.55 L Hgb Hct RDW 19.9 H PT 15.1 H POC ABG pO2 Sodium Potassium Chloride BUN Creatinine Glucose Calcium Magnesium Total Creatine Kinase NT-Pro-B Natriuret Pep Albumin PTH Intact U Epithel Cells (Auto) 17.0 H Urine Creatinine 12/20/18 12/20/18 12/21/18 03:06 07:39 06:08 WBC RBC Hgb Hct RDW PT POC ABG pO2 Sodium 129 L 130 L Potassium 3.0 L Chloride 86.1 L 88.9 L BUN 35 H 43 H Creatinine 1.4 H 1.6 H Glucose 125 H 131 H Calcium 6.0 L 6.3 L Magnesium 0.40 L* 1.00 L 1.00 L Total Creatine Kinase 238 H NT-Pro-B Natriuret Pep 79939 H Albumin 2.8 L PTH Intact U Epithel Cells (Auto) Urine Creatinine 12/22/18 12/22/18 12/22/18 00:25 07:42 07:42 WBC RBC Hgb Hct RDW PT POC ABG pO2 Sodium 131 L Potassium 3.3 L Chloride 91.8 L BUN 41 H Creatinine 1.4 H Glucose 118 H Calcium 7.3 L D Magnesium 1.60 L Total Creatine Kinase NT-Pro-B Natriuret Pep Albumin PTH Intact 186.9 H U Epithel Cells (Auto) Urine Creatinine 85.8 H 12/23/18 12/24/18 12/25/18 08:05 06:53 06:09 WBC RBC Hgb Hct RDW PT POC ABG pO2 Sodium 133 L 133 L Potassium Chloride 97.3 L BUN 31 H 26 H 26 H Creatinine Glucose 102 H 109 H 104 H Calcium Magnesium 1.30 L Total Creatine Kinase NT-Pro-B Natriuret Pep Albumin PTH Intact U Epithel Cells (Auto) Urine Creatinine 12/25/18 12/26/18 12/27/18 14:23 07:12 04:09 WBC RBC Hgb Hct RDW PT POC ABG pO2 65 L Sodium 135 L Potassium Chloride BUN 21 H Creatinine Glucose 104 H Calcium Magnesium 1.60 L 1.60 L Total Creatine Kinase NT-Pro-B Natriuret Pep Albumin PTH Intact U Epithel Cells (Auto) Urine Creatinine 12/28/18 12/30/18 12/30/18 05:24 05:36 05:36 WBC RBC 2.72 L Hgb 8.6 L Hct 25.9 L RDW 20.2 H PT POC ABG pO2 Sodium 136 L Potassium Chloride BUN Creatinine Glucose 127 H Calcium Magnesium 1.20 L Total Creatine Kinase NT-Pro-B Natriuret Pep Albumin PTH Intact U Epithel Cells (Auto) Urine Creatinine 12/31/18 12/31/18 05:36 05:36 WBC RBC 2.90 L Hgb 8.9 L Hct 27.6 L RDW 20.0 H PT POC ABG pO2 Sodium Potassium Chloride BUN Creatinine Glucose 119 H Calcium Magnesium Total Creatine Kinase NT-Pro-B Natriuret Pep Albumin PTH Intact U Epithel Cells (Auto) Urine Creatinine CT scan - chest: report reviewed, image reviewed Additional Studies: CAT scan of chest done on 12/27/18 IMPRESSION: Findings consistent with idiopathic pulmonary fibrosis which has progressed slightly since 06/26/18 exam as outlined above. Trace pericardial effusion. Osteopenia and mild thoracic spondylosis. Allied health notes reviewed: nursing
[2019-01-01 07:19] LABS: Hematocrit 26.2 % (30.3-42.9); Hemoglobin 8.6 gm/dl (10.1-14.3); Mean Corpuscular HGB Conc 33 % (30-34); Mean Corpuscular Volume 96 fl (79-97); Platelet Count 368 K/mm3 (140-440); Red Blood Count 2.75 M/mm3 (3.65-5.03); Red Cell Distribution Width 19.7 % (13.2-15.2)
[2019-01-01 07:39] LABS: BUN/Creatinine Ratio 9; Blood Urea Nitrogen 8 mg/dL (7-17); Calcium 9.9 mg/dL (8.4-10.2); Hemolysis Index 5
[2019-01-01] MEDS: MAG-OX PO SCH ×3 (08:25→21:27)
[2019-01-01] MEDS: KEPPRA PO SCH ×2 (09:16→21:27)
[2019-01-01] MEDS: PROTONIX PO SCH (09:16)
[2019-01-01] MEDS: LOVENOX SUB-Q SCH (09:17)
[2019-01-01] MEDS: SODIUM CHLORIDE FLUSH SYRINGE 10 ML IV SCH ×2 (09:18→21:27)
--- NOTE | 2019-01-01 09:34 | Progress Note ---
Assessment and Plan 1. Acute kidney injury: Vasomotor RADHIKA due to volume depletion. Renal US negative for hydro. Renal function is better. Monitor renal function. Avoid nephrotoxic agents. Meds dosage based on GFR. 2. FEN: Hypomagnesemia, replete Mg as needed. Likely from diarrhea. Hypokalemia, improved. Monitor lytes. 3. Chronic hypoxemic respiratory failure. 4. Severe pulmonary HTN: Pulmonary fibrosis. 5. Seizures. 6. Diarrhea. Subjective Date of service: 01/01/19 Principal diagnosis: Chronic respiratory failure, Severe pulmonary HTN; Pulmonary fibrosis Interval history: Patient was seen and examined at the bedside. Semi formed stool. Objective - Vital Signs Vital signs: Vital Signs - 12hr 01/01/19 01/01/19 01/01/19 02:31 02:32 02:35 Temperature 98.9 F Pulse Rate 93 H 93 H Respiratory 18 Rate Blood Pressure Blood Pressure 124/69 [Right] O2 Sat by Pulse 97 98 Oximetry 01/01/19 08:09 Temperature 98.1 F Pulse Rate 82 Respiratory 20 Rate Blood Pressure 107/60 Blood Pressure [Right] O2 Sat by Pulse 98 Oximetry - General Appearance General appearance: well-developed, well-nourished, appears stated age, obese, other (not in distress) EENT: ATNC, PERRL, hearing intact, vision intact Neck: supple Respiratory: Present: Clear to Ascultation Cardiology: regular, S1S2, no murmurs Gastrointestinal: normoactive bowel sounds, no tenderness, no distended, obese Integumentary: no rash, warm and dry Neurologic: no focal deficit, no asterixis, alert and oriented x3 Musculoskeletal: other (no edema) - Lab 01/01/19 07:03 01/01/19 07:03 Most recent lab results Calcium 9.9 mg/dL (8.4-10.2) 01/01/19 07:03 Phosphorus 3.10 mg/dL (2.5-4.5) 12/22/18 07:42 Magnesium 1.30 mg/dL (1.7-2.3) L 01/01/19 07:03 Urine Creatinine 85.8 mg/dL (0.1-20.0) H 12/22/18 00:25 Urine Sodium 21 mmol/L 12/22/18 00:25 Medications & Allergies - Medications Allergies/Adverse Reactions: Allergies lisinopril Allergy (Verified 08/13/13 15:50) Angioedema Home Medications: Home Medications Medication Instructions Recorded Confirmed Last Taken Type Carvedilol [Coreg] 3.125 mg PO DAILY 12/20/18 12/20/18 Unknown History Iron [Iron 18 MG TAB] 18 mg PO QDAY 12/20/18 12/20/18 Unknown History Omeprazole 20 mg PO DAILY 12/20/18 12/20/18 Unknown History Potassium Chloride [K-Dur] 10 meq PO BID 12/20/18 12/20/18 Unknown History Loperamide [Imodium] 2 mg PO Q2HR PRN #10 capsule 12/23/18 Unknown Rx Magnesium Oxide [Magnesium] 200 mg PO DAILY #10 tab.chew 12/23/18 Unknown Rx levETIRAcetam [Keppra TAB] 750 mg PO BID #60 tablet 12/23/18 Unknown Rx Active Medications: Generic Name Dose Route Start Last Admin Trade Name Freq PRN Reason Stop Dose Admin Acetaminophen 650 mg 12/20/18 06:00 12/27/18 10:52 Tylenol PO 650 mg Q4H PRN Administration Pain MILD(1-3)/Fever >100.5/HURTADO Albuterol 2.5 mg 12/21/18 02:00 12/21/18 11:51 Proventil IH 2.5 mg Q4HRT PRN Administration Shortness Of Breath Enoxaparin Sodium 40 mg 12/21/18 12:00 01/01/19 09:17 Lovenox SUB-Q 40 mg QDAY@1000 BARB Administration Magnesium Sulfate 4 gm in 100 mls @ 25 mls/hr 01/01/19 09:33 Magnesium Sulfate 4gm/100ml IV 01/01/19 13:32 ONCE ONE Levetiracetam 750 mg 12/23/18 22:00 01/01/19 09:16 Keppra PO 750 mg BID BARB Administration Loperamide HCl 2 mg 12/24/18 12:22 12/28/18 20:18 Imodium PO 2 mg Q2H PRN Administration Diarrhea Lorazepam 1 mg 12/20/18 06:07 Ativan IV Q1H PRN Seizures Magnesium Oxide 400 mg 12/30/18 14:00 01/01/19 08:25 Mag-Ox PO 400 mg TID BARB Administration Ondansetron HCl 4 mg 12/20/18 06:00 Zofran IV Q8H PRN Nausea And Vomiting Pantoprazole Sodium 40 mg 12/25/18 14:00 01/01/19 09:16 Protonix PO 40 mg QDAY BARB Administration Sodium Chloride 10 ml 12/20/18 10:00 01/01/19 09:18 Sodium Chloride Flush Syringe 10 Ml IV 10 ml BID BARB Administration Sodium Chloride 10 ml 12/20/18 06:00 Sodium Chloride Flush Syringe 10 Ml IV PRN PRN LINE FLUSH
--- NOTE | 2019-01-01 09:54 | Progress Note ---
Assessment and Plan Patient awake and resting on O2 2 litres. O2 saturation 98%.No complaint of chest pain,shortness of breath and cough.CT of chest reported idiopathic pulmonary fibrosis.Rheumatoid factor negative. Obtaining CARMEN level and other collagen work up. - Patient Problems (1) Fluid overload Current Visit: Yes Status: Acute Plan to address problem: Improved. (2) Breakthrough seizure Current Visit: Yes Status: Acute Plan to address problem: Patient is on Keppra and Lorazepam (3) Pulmonary fibrosis Current Visit: Yes Status: Acute Plan to address problem: Bibasilar scarring and fibrosis. MICHAEL, CARMEN level, CANCA PFTs as out patient. Subjective Date of service: 01/01/19 Principal diagnosis: Chronic respiratory failure, Severe pulmonary HTN; Pulmonary fibrosis Interval history: Patient awake and resting on O2 2 litres. O2 saturation 98%.No complaint of chest pain,shortness of breath and cough.CT of chest reported idiopathic pulmonary fibrosis.Rheumatoid factor negative. Obtaining CARMEN level and other collagen work up. Objective Vital Signs - 12hr 01/01/19 01/01/19 01/01/19 02:31 02:32 02:35 Temperature 98.9 F Pulse Rate 93 H 93 H Respiratory 18 Rate Blood Pressure Blood Pressure 124/69 [Right] O2 Sat by Pulse 97 98 Oximetry 01/01/19 08:09 Temperature 98.1 F Pulse Rate 82 Respiratory 20 Rate Blood Pressure 107/60 Blood Pressure [Right] O2 Sat by Pulse 98 Oximetry Constitutional: no acute distress, alert, other (elderly looking obese AAF, normocephalic and atraumatic) Eyes: non-icteric ENT: oropharynx moist Neck: supple, no JVD Effort: mildly labored Ascultation: Bilateral: diminished breath sounds (basilar inspiratory crackles) Percussion: Bilateral: not dull Cardiovascular: regular rate and rhythm, other (S1,S2, no murmurs, gallops or rubs) Gastrointestinal: normoactive bowel sounds, soft, non-tender, non-distended Integumentary: normal Extremities: no cyanosis, no edema, pulses normal, no ischemia or petechiae Neurologic: normal mental status, non-focal exam, pupils equal and round, CN II- XII normal, motor strength normal and Psychiatric: mood appropriate, affect normal CBC and BMP: 01/01/19 07:03 01/01/19 07:03 ABG, PT/INR, D-dimer: ABG POC ABG pH 7.359 (7.35-7.45) 12/25/18 14:23 POC ABG pCO2 42.6 (35-45) 12/25/18 14:23 POC ABG pO2 65 (80-105) L 12/25/18 14:23 POC ABG HCO3 24.0 (22-26 mml/L) 12/25/18 14:23 POC ABG Total CO2 25 (23-27mmol/L) 12/25/18 14:23 POC ABG O2 Sat 92 12/25/18 14:23 PT/INR, D-dimer PT 15.1 Sec. (12.2-14.9) H 12/20/18 03:06 INR 1.12 (0.87-1.13) 12/20/18 03:06 Abnormal lab findings: Abnormal Labs 12/20/18 12/20/18 12/20/18 02:00 03:06 03:06 WBC 14.4 H RBC 3.55 L Hgb Hct RDW 19.9 H PT 15.1 H POC ABG pO2 Sodium Potassium Chloride BUN Creatinine Glucose Calcium Magnesium Total Creatine Kinase NT-Pro-B Natriuret Pep Albumin PTH Intact U Epithel Cells (Auto) 17.0 H Urine Creatinine 12/20/18 12/20/18 12/21/18 03:06 07:39 06:08 WBC RBC Hgb Hct RDW PT POC ABG pO2 Sodium 129 L 130 L Potassium 3.0 L Chloride 86.1 L 88.9 L BUN 35 H 43 H Creatinine 1.4 H 1.6 H Glucose 125 H 131 H Calcium 6.0 L 6.3 L Magnesium 0.40 L* 1.00 L 1.00 L Total Creatine Kinase 238 H NT-Pro-B Natriuret Pep 67812 H Albumin 2.8 L PTH Intact U Epithel Cells (Auto) Urine Creatinine 12/22/18 12/22/18 12/22/18 00:25 07:42 07:42 WBC RBC Hgb Hct RDW PT POC ABG pO2 Sodium 131 L Potassium 3.3 L Chloride 91.8 L BUN 41 H Creatinine 1.4 H Glucose 118 H Calcium 7.3 L D Magnesium 1.60 L Total Creatine Kinase NT-Pro-B Natriuret Pep Albumin PTH Intact 186.9 H U Epithel Cells (Auto) Urine Creatinine 85.8 H 12/23/18 12/24/18 12/25/18 08:05 06:53 06:09 WBC RBC Hgb Hct RDW PT POC ABG pO2 Sodium 133 L 133 L Potassium Chloride 97.3 L BUN 31 H 26 H 26 H Creatinine Glucose 102 H 109 H 104 H Calcium Magnesium 1.30 L Total Creatine Kinase NT-Pro-B Natriuret Pep Albumin PTH Intact U Epithel Cells (Auto) Urine Creatinine 12/25/18 12/26/18 12/27/18 14:23 07:12 04:09 WBC RBC Hgb Hct RDW PT POC ABG pO2 65 L Sodium 135 L Potassium Chloride BUN 21 H Creatinine Glucose 104 H Calcium Magnesium 1.60 L 1.60 L Total Creatine Kinase NT-Pro-B Natriuret Pep Albumin PTH Intact U Epithel Cells (Auto) Urine Creatinine 12/28/18 12/30/18 12/30/18 05:24 05:36 05:36 WBC RBC 2.72 L Hgb 8.6 L Hct 25.9 L RDW 20.2 H PT POC ABG pO2 Sodium 136 L Potassium Chloride BUN Creatinine Glucose 127 H Calcium Magnesium 1.20 L Total Creatine Kinase NT-Pro-B Natriuret Pep Albumin PTH Intact U Epithel Cells (Auto) Urine Creatinine 12/31/18 12/31/18 01/01/19 05:36 05:36 07:03 WBC RBC 2.90 L 2.75 L Hgb 8.9 L 8.6 L Hct 27.6 L 26.2 L RDW 20.0 H 19.7 H PT POC ABG pO2 Sodium Potassium Chloride BUN Creatinine Glucose 119 H Calcium Magnesium Total Creatine Kinase NT-Pro-B Natriuret Pep Albumin PTH Intact U Epithel Cells (Auto) Urine Creatinine 01/01/19 07:03 WBC RBC Hgb Hct RDW PT POC ABG pO2 Sodium 136 L Potassium Chloride BUN Creatinine Glucose 101 H Calcium Magnesium 1.30 L Total Creatine Kinase NT-Pro-B Natriuret Pep Albumin PTH Intact U Epithel Cells (Auto) Urine Creatinine Allied health notes reviewed: nursing
[2019-01-01] MEDS ORDERED: MAGNESIUM SULFATE 4GM/100ML 4 GM/100 ML BAG IV ONE (10:00)
[2019-01-01] MEDS: SODIUM CHLORIDE FLUSH SYRINGE 10 ML IV PRN (10:06)
--- NOTE | 2019-01-01 12:31 | Progress Note ---
Assessment and Plan Assessment and plan: Patient is a 68 yo woman with history OA, CHF, chronic respiratory failure on home o2, seizure disorder not on meds for 5 years who presented with seizure like activity witnessed by the Son. She was found to have low magnesium at 0.4, low Na, K and Ca. CT head showed no acute process. She is on torsemide at home. * CXR: No acute pulmonary finding identified. Bibasilar scarring/fibrosis. * CT abdomen/pelvis; There is cholelithiasis.. There are no kidney stones. There is no hydronephrosis. There is diverticulosis of the colon. There is no diverticulitis, colitis, obstruction or mass. The appendix is normal. . There is air in the bladder. There is a left-sided bladder diverticulum.. There is no ascites, free air, abscess or adenopathy.. . * CT head: There is no acute intracranial abnormality. . * 2D echo: EF 60-65%, moderate to severe PHTN The patient presented with seizures, her magnesium was repleted, she was treated with seizure medications -The patient had diarrhea, she was empirically treated with Flagyl 1 week, last dose 12/30/18 -She was continued on home oxygen for chronic respiratory failure -Echo was performed and showed preserved EF, potassium was also repleted, calcium was repleted, she had some dehydration for which she received IV fluids -Acute kidney injury was likely due to a combination of ATN and vasomotor nephropathy, the patient has some chronic kidney disease at baseline, she improved with hydration -She received physical therapy for ataxia and osteoarthritis. -The patient is awaiting placement in a subacute rehabilitation facility Diagnoses Status epilepticus Transient autonomic imbalance Severe pulmonary hypertension CHF ruled out Hypokalemia Severe hypomagnesemia Hypocalcemia Hyponatremia Acute kidney injury due to vasomotor nephropathy Diarrhea NOS Chronic hypoxic respiratory failure History Interval history: Review of systems Constitutional: No fevers, no malaise, no joint pains CVS: No chest pain, no orthopnea, no dyspnea on exertion, no pedal edema GI: No abdominal pain, no diarrhea, no vomiting, no constipation Respiratory: no wheezing, no coughing Hospitalist Physical - Physical exam Narrative exam: General.: Appears well, no distress, nontoxic HEENT: Moist mucous membranes, extraocular muscles intact, no lymphadenopathy Neck: supple Cardiac: S1-S2 heard Lungs: clear to auscultation bilaterally Abdomen: soft , nontender, nondistended, bowel sounds positive Extremities: no edema clubbing or cyanosis Skin: no rash or lesions Neurologic: no gross focal deficits Psych: calm, and cooperative - Constitutional Vitals: Temp Pulse Resp BP Pulse Ox 98.1 F 82 20 107/60 98 01/01/19 08:09 01/01/19 10:00 01/01/19 10:00 01/01/19 08:09 01/01/19 10:00 Results - Labs CBC & Chem 7: 01/01/19 07:03 01/01/19 07:03 Labs: Laboratory Last Values WBC 6.4 K/mm3 (4.5-11.0) 01/01/19 07:03 RBC 2.75 M/mm3 (3.65-5.03) L 01/01/19 07:03 Hgb 8.6 gm/dl (10.1-14.3) L 01/01/19 07:03 Hct 26.2 % (30.3-42.9) L 01/01/19 07:03 MCV 96 fl (79-97) 01/01/19 07:03 MCH 31 pg (28-32) 01/01/19 07:03 MCHC 33 % (30-34) 01/01/19 07:03 RDW 19.7 % (13.2-15.2) H 01/01/19 07:03 Plt Count 368 K/mm3 (140-440) 01/01/19 07:03 PT 15.1 Sec. (12.2-14.9) H 12/20/18 03:06 INR 1.12 (0.87-1.13) 12/20/18 03:06 POC ABG pH 7.359 (7.35-7.45) 12/25/18 14:23 POC ABG pCO2 42.6 (35-45) 12/25/18 14:23 POC ABG pO2 65 (80-105) L 12/25/18 14:23 POC ABG HCO3 24.0 (22-26 mml/L) 12/25/18 14:23 POC ABG Total CO2 25 (23-27mmol/L) 12/25/18 14:23 POC ABG O2 Sat 92 12/25/18 14:23 POC ABG Base Excess -1 ((-2) - (+3)mmol/L) 12/25/18 14:23 FiO2 21 % 12/25/18 14:23 Sodium 136 mmol/L (137-145) L 01/01/19 07:03 Potassium 4.0 mmol/L (3.6-5.0) 01/01/19 07:03 Chloride 100.7 mmol/L (98-107) 01/01/19 07:03 Carbon Dioxide 27 mmol/L (22-30) 01/01/19 07:03 Anion Gap 12 mmol/L 01/01/19 07:03 BUN 8 mg/dL (7-17) 01/01/19 07:03 Creatinine 0.9 mg/dL (0.7-1.2) 01/01/19 07:03 Estimated GFR > 60 ml/min 01/01/19 07:03 BUN/Creatinine Ratio 9 % 01/01/19 07:03 Glucose 101 mg/dL (65-100) H 01/01/19 07:03 POC Glucose 98 (70-105) 12/22/18 12:57 Calcium 9.9 mg/dL (8.4-10.2) 01/01/19 07:03 Phosphorus 3.10 mg/dL (2.5-4.5) 12/22/18 07:42 Magnesium 1.30 mg/dL (1.7-2.3) L 01/01/19 07:03 Total Bilirubin 1.20 mg/dL (0.1-1.2) 12/20/18 03:06 AST 33 units/L (5-40) 12/20/18 03:06 ALT 17 units/L (7-56) 12/20/18 03:06 Alkaline Phosphatase 59 units/L (35-129) 12/20/18 03:06 Total Creatine Kinase 61 units/L (30-135) 12/22/18 07:42 NT-Pro-B Natriuret Pep 71888 pg/mL (0-900) H 12/20/18 03:06 Total Protein 6.3 g/dL (6.3-8.2) 12/20/18 03:06 Albumin 2.8 g/dL (3.9-5) L 12/20/18 03:06 Albumin/Globulin Ratio 0.8 % 12/20/18 03:06 25-OH Vitamin D Total See scanned results 12/22/18 13:10 25-Hydroxy Vitamin D2 See scanned results 12/22/18 13:10 25-Hydroxy Vitamin D3 See scanned results 12/22/18 13:10 PTH Intact 186.9 pg/mL (15-65) H 12/22/18 07:42 Urine Color Yellow (Yellow) 12/20/18 02:00 Urine Turbidity Slightly-cloudy (Clear) 12/20/18 02:00 Urine pH 5.0 (5.0-7.0) 12/20/18 02:00 Ur Specific [place] 1.008 (1.003-1.030) 12/20/18 02:00 Urine Protein <15 mg/dl mg/dL (Negative) 12/20/18 02:00 Urine Glucose (UA) Neg mg/dL (Negative) 12/20/18 02:00 Urine Ketones Neg mg/dL (Negative) 12/20/18 02:00 Urine Blood Neg (Negative) 12/20/18 02:00 Urine Nitrite Neg (Negative) 12/20/18 02:00 Urine Bilirubin Neg (Negative) 12/20/18 02:00 Urine Urobilinogen < 2.0 mg/dL (<2.0) 12/20/18 02:00 Ur Leukocyte Esterase Neg (Negative) 12/20/18 02:00 Urine WBC (Auto) 1.0 /HPF (0.0-6.0) 12/20/18 02:00 Urine RBC (Auto) 1.0 /HPF (0.0-6.0) 12/20/18 02:00 U Epithel Cells (Auto) 17.0 /HPF (0-13.0) H 12/20/18 02:00 Urine Bacteria (Auto) 1+ /HPF (Negative) 12/20/18 02:00 Amorphous Crystals 1+ 12/20/18 02:00 Hyaline Casts 7 /LPF 12/20/18 02:00 Urine Mucus Few /HPF 12/20/18 02:00 Urine Creatinine 85.8 mg/dL (0.1-20.0) H 12/22/18 00:25 Urine Sodium 21 mmol/L 12/22/18 00:25 Rheumatoid Factor 12 IU/ml (0-13) 12/28/18 12:41 Active Medications - Current Medications Current Medications: Generic Name Dose Route Start Last Admin Trade Name Freq PRN Reason Stop Dose Admin Acetaminophen 650 mg 12/20/18 06:00 12/27/18 10:52 Tylenol PO 650 mg Q4H PRN Administration Pain MILD(1-3)/Fever >100.5/HURTADO Albuterol 2.5 mg 12/21/18 02:00 12/21/18 11:51 Proventil IH 2.5 mg Q4HRT PRN Administration Shortness Of Breath Enoxaparin Sodium 40 mg 12/21/18 12:00 01/01/19 09:17 Lovenox SUB-Q 40 mg QDAY@1000 BARB Administration Magnesium Sulfate 4 gm in 100 mls @ 25 mls/hr 01/01/19 10:00 01/01/19 10:06 Magnesium Sulfate 4gm/100ml IV 01/01/19 13:59 25 mls/hr ONCE ONE Administration Levetiracetam 750 mg 12/23/18 22:00 01/01/19 09:16 Keppra PO 750 mg BID BARB Administration Loperamide HCl 2 mg 12/24/18 12:22 12/28/18 20:18 Imodium PO 2 mg Q2H PRN Administration Diarrhea Lorazepam 1 mg 12/20/18 06:07 Ativan IV Q1H PRN Seizures Magnesium Oxide 400 mg 12/30/18 14:00 01/01/19 08:25 Mag-Ox PO 400 mg TID BARB Administration Ondansetron HCl 4 mg 12/20/18 06:00 Zofran IV Q8H PRN Nausea And Vomiting Pantoprazole Sodium 40 mg 12/25/18 14:00 01/01/19 09:16 Protonix PO 40 mg QDAY BARB Administration Sodium Chloride 10 ml 12/20/18 10:00 01/01/19 09:18 Sodium Chloride Flush Syringe 10 Ml IV 10 ml BID BARB Administration Sodium Chloride 10 ml 12/20/18 06:00 01/01/19 10:06 Sodium Chloride Flush Syringe 10 Ml IV 10 ml PRN PRN Administration LINE FLUSH Nutrition/Malnutrition Assess - Dietary Evaluation Nutrition/Malnutrition Findings: Nutrition Notes Start: 12/27/18 10:12 Freq: Status: Active Protocol: Document 12/31/18 16:08 RM (Rec: 12/31/18 16:14 RM [id number]) Nutrition Notes Initial or Follow up Reassessment Current Diagnosis Hypertension,Heart Failure, Respiratory Failure Other Pertinent Diagnosis arthritis, seizures Current Diet Cardiac w/Ensure Enlive BID Labs/Tests Reviewed Pertinent Medications Reviewed Height 5 ft 6 in Weight 94.3 kg [place] Body Weight (kg) 59.09 BMI 33.5 Subjective/Other Information Pt stated that her appetite is good. Noted breakfast at bedside w/100% eaten. Also stated that she drinks the Ensure Enlive. Percent of energy/protein needs met: 100%/100% Burn Absent Trauma Absent #2 Nutrition Diagnosis Malnutrition Diagnosis Progress(for reassessment Continues documentation) #1 Nutrition Diagnosis Inadequate oral intake As Evidenced by Signs and Symptoms pt meeting 100% of calorie and protein needs Diagnosis Progress(for reassessment Resolved documentation) Is patient on ventilator? No Is Patient Ambulatory and/or Out of Bed No REE-([facility]-confined to bed) 4051.564 Calculation Used for Recommendations [facility] Additional Notes Protein: 94.3-113 g/day (1-1. 2g/kg) Fluid: 1 ml/kcal Nutrition Intervention Change Diet Order: Continue current Add Supplement/Snack (indicate name/kcal Ensure Enlive 1 daily /protein ) Provides kCal: 350 Provides Protein (gm) 20 Goal #1 Continue to meet at least 75% of calorie and protein needs Follow-Up By: 01/03/19 Additional Comments Follow for PO and ONS intakes
[2019-01-02] MEDS: MAG-OX PO SCH ×3 (08:10→21:00)
[2019-01-02] MEDS: KEPPRA PO SCH ×2 (10:04→21:02)
[2019-01-02] MEDS: PROTONIX PO SCH (10:04)
[2019-01-02] MEDS: LOVENOX SUB-Q SCH (10:04)
[2019-01-02] MEDS: SODIUM CHLORIDE FLUSH SYRINGE 10 ML IV SCH ×2 (10:05→21:03)
--- NOTE | 2019-01-02 11:45 | Progress Note ---
Assessment and Plan 1. Acute kidney injury: Vasomotor RADHIKA due to volume depletion. Renal US negative for hydro. Renal function is better. Monitor renal function. Avoid nephrotoxic agents. Meds dosage based on GFR. 2. FEN: Hypomagnesemia, replete Mg as needed. Likely from diarrhea. Hypokalemia, improved. Monitor lytes. 3. Chronic hypoxemic respiratory failure. 4. Severe pulmonary HTN: Pulmonary fibrosis. 5. Seizures. 6. Diarrhea. Subjective Date of service: 01/02/19 Principal diagnosis: Chronic respiratory failure, Severe pulmonary HTN; Pulmonary fibrosis Interval history: Patient was seen and examined at the bedside. Intermittent diarrhea. Objective - Vital Signs Vital signs: Vital Signs - 12hr 01/02/19 01/02/19 01/02/19 03:01 03:07 07:06 Temperature 99.6 F 99.0 F Pulse Rate 89 86 Pulse Rate [ Right Brachial] Respiratory 18 18 Rate Blood Pressure 117/63 107/59 O2 Sat by Pulse 98 99 Oximetry 01/02/19 10:00 Temperature Pulse Rate Pulse Rate [ 86 Right Brachial] Respiratory 18 Rate Blood Pressure O2 Sat by Pulse 97 Oximetry - General Appearance General appearance: well-developed, well-nourished, appears stated age, obese, other (no distress) EENT: ATNC, PERRL, mucous membranes moist Neck: supple Respiratory: Present: Clear to Ascultation Cardiology: regular, S1S2, no murmurs Gastrointestinal: normoactive bowel sounds, no tenderness, no distended Integumentary: no rash, warm and dry Neurologic: no focal deficit, no asterixis, alert and oriented x3 Musculoskeletal: other (no edema) Psychiatric: cooperative - Lab 01/01/19 07:03 01/01/19 07:03 Most recent lab results Calcium 9.9 mg/dL (8.4-10.2) 01/01/19 07:03 Phosphorus 3.10 mg/dL (2.5-4.5) 12/22/18 07:42 Magnesium 1.30 mg/dL (1.7-2.3) L 01/01/19 07:03 Urine Creatinine 85.8 mg/dL (0.1-20.0) H 12/22/18 00:25 Urine Sodium 21 mmol/L 12/22/18 00:25 Medications & Allergies - Medications Allergies/Adverse Reactions: Allergies lisinopril Allergy (Verified 08/13/13 15:50) Angioedema Home Medications: Home Medications Medication Instructions Recorded Confirmed Last Taken Type Carvedilol [Coreg] 3.125 mg PO DAILY 12/20/18 12/20/18 Unknown History Iron [Iron 18 MG TAB] 18 mg PO QDAY 12/20/18 12/20/18 Unknown History Omeprazole 20 mg PO DAILY 12/20/18 12/20/18 Unknown History Potassium Chloride [K-Dur] 10 meq PO BID 12/20/18 12/20/18 Unknown History Loperamide [Imodium] 2 mg PO Q2HR PRN #10 capsule 12/23/18 Unknown Rx Magnesium Oxide [Magnesium] 200 mg PO DAILY #10 tab.chew 12/23/18 Unknown Rx levETIRAcetam [Keppra TAB] 750 mg PO BID #60 tablet 12/23/18 Unknown Rx Active Medications: Generic Name Dose Route Start Last Admin Trade Name Freq PRN Reason Stop Dose Admin Acetaminophen 650 mg 12/20/18 06:00 12/27/18 10:52 Tylenol PO 650 mg Q4H PRN Administration Pain MILD(1-3)/Fever >100.5/HURTADO Albuterol 2.5 mg 12/21/18 02:00 12/21/18 11:51 Proventil IH 2.5 mg Q4HRT PRN Administration Shortness Of Breath Enoxaparin Sodium 40 mg 12/21/18 12:00 01/02/19 10:04 Lovenox SUB-Q 40 mg QDAY@1000 BARB Administration Levetiracetam 750 mg 12/23/18 22:00 01/02/19 10:04 Keppra PO 750 mg BID BARB Administration Loperamide HCl 2 mg 12/24/18 12:22 12/28/18 20:18 Imodium PO 2 mg Q2H PRN Administration Diarrhea Lorazepam 1 mg 12/20/18 06:07 Ativan IV Q1H PRN Seizures Magnesium Oxide 400 mg 12/30/18 14:00 01/02/19 08:10 Mag-Ox PO 400 mg TID BARB Administration Ondansetron HCl 4 mg 12/20/18 06:00 Zofran IV Q8H PRN Nausea And Vomiting Pantoprazole Sodium 40 mg 12/25/18 14:00 01/02/19 10:04 Protonix PO 40 mg QDAY BARB Administration Sodium Chloride 10 ml 12/20/18 10:00 01/02/19 10:05 Sodium Chloride Flush Syringe 10 Ml IV 10 ml BID BARB Administration Sodium Chloride 10 ml 12/20/18 06:00 01/01/19 10:06 Sodium Chloride Flush Syringe 10 Ml IV 10 ml PRN PRN Administration LINE FLUSH
[2019-01-02] MEDS: SODIUM CHLORIDE FLUSH SYRINGE 10 ML IV PRN (12:42)
[2019-01-02] MEDS ORDERED: MAGNESIUM SULFATE 4GM/100ML 4 GM/100 ML BAG IV ONE (13:00)
--- NOTE | 2019-01-02 15:52 | Progress Note ---
Assessment and Plan Assessment and plan: Patient is a 68 yo woman with history OA, CHF, chronic respiratory failure on home o2, seizure disorder not on meds for 5 years who presented with seizure like activity witnessed by the Son. She was found to have low magnesium at 0.4, low Na, K and Ca. CT head showed no acute process. She is on torsemide at home. * CXR: No acute pulmonary finding identified. Bibasilar scarring/fibrosis. * CT abdomen/pelvis; There is cholelithiasis.. There are no kidney stones. There is no hydronephrosis. There is diverticulosis of the colon. There is no diverticulitis, colitis, obstruction or mass. The appendix is normal. . There is air in the bladder. There is a left-sided bladder diverticulum.. There is no ascites, free air, abscess or adenopathy.. . * CT head: There is no acute intracranial abnormality. . * 2D echo: EF 60-65%, moderate to severe PHTN The patient presented with seizures, her magnesium was repleted, she was treated with seizure medications -The patient had diarrhea, she was empirically treated with Flagyl 1 week, last dose 12/30/18 -She was continued on home oxygen for chronic respiratory failure -Echo was performed and showed preserved EF, potassium was also repleted, calcium was repleted, she had some dehydration for which she received IV fluids -Acute kidney injury was likely due to a combination of ATN and vasomotor nephropathy, the patient has some chronic kidney disease at baseline, she improved with hydration -She received physical therapy for ataxia and osteoarthritis. -The patient is awaiting placement in a subacute rehabilitation facility Diagnoses Status epilepticus Transient autonomic imbalance Severe pulmonary hypertension CHF ruled out Hypokalemia Severe hypomagnesemia Hypocalcemia Hyponatremia Acute kidney injury due to vasomotor nephropathy Diarrhea NOS Chronic hypoxic respiratory failure History Interval history: Review of systems Constitutional: No fevers, no malaise, no joint pains CVS: No chest pain, no orthopnea, no dyspnea on exertion, no pedal edema GI: No abdominal pain, no diarrhea, no vomiting, no constipation Respiratory: no wheezing, no coughing Hospitalist Physical - Physical exam Narrative exam: General.: Appears well, no distress, nontoxic HEENT: Moist mucous membranes, extraocular muscles intact, no lymphadenopathy Neck: supple Cardiac: S1-S2 heard Lungs: clear to auscultation bilaterally Abdomen: soft , nontender, nondistended, bowel sounds positive Extremities: no edema clubbing or cyanosis Skin: no rash or lesions Neurologic: no gross focal deficits Psych: calm, and cooperative - Constitutional Vitals: Temp Pulse Resp BP Pulse Ox 99.0 F 86 18 107/59 99 01/02/19 07:06 01/02/19 10:00 01/02/19 10:00 01/02/19 07:06 01/02/19 10:00 Results - Labs CBC & Chem 7: 01/01/19 07:03 01/01/19 07:03 Labs: Laboratory Last Values WBC 6.4 K/mm3 (4.5-11.0) 01/01/19 07:03 RBC 2.75 M/mm3 (3.65-5.03) L 01/01/19 07:03 Hgb 8.6 gm/dl (10.1-14.3) L 01/01/19 07:03 Hct 26.2 % (30.3-42.9) L 01/01/19 07:03 MCV 96 fl (79-97) 01/01/19 07:03 MCH 31 pg (28-32) 01/01/19 07:03 MCHC 33 % (30-34) 01/01/19 07:03 RDW 19.7 % (13.2-15.2) H 01/01/19 07:03 Plt Count 368 K/mm3 (140-440) 01/01/19 07:03 PT 15.1 Sec. (12.2-14.9) H 12/20/18 03:06 INR 1.12 (0.87-1.13) 12/20/18 03:06 POC ABG pH 7.359 (7.35-7.45) 12/25/18 14:23 POC ABG pCO2 42.6 (35-45) 12/25/18 14:23 POC ABG pO2 65 (80-105) L 12/25/18 14:23 POC ABG HCO3 24.0 (22-26 mml/L) 12/25/18 14:23 POC ABG Total CO2 25 (23-27mmol/L) 12/25/18 14:23 POC ABG O2 Sat 92 12/25/18 14:23 POC ABG Base Excess -1 ((-2) - (+3)mmol/L) 12/25/18 14:23 FiO2 21 % 12/25/18 14:23 Sodium 136 mmol/L (137-145) L 01/01/19 07:03 Potassium 4.0 mmol/L (3.6-5.0) 01/01/19 07:03 Chloride 100.7 mmol/L (98-107) 01/01/19 07:03 Carbon Dioxide 27 mmol/L (22-30) 01/01/19 07:03 Anion Gap 12 mmol/L 01/01/19 07:03 BUN 8 mg/dL (7-17) 01/01/19 07:03 Creatinine 0.9 mg/dL (0.7-1.2) 01/01/19 07:03 Estimated GFR > 60 ml/min 01/01/19 07:03 BUN/Creatinine Ratio 9 % 01/01/19 07:03 Glucose 101 mg/dL (65-100) H 01/01/19 07:03 POC Glucose 98 (70-105) 12/22/18 12:57 Calcium 9.9 mg/dL (8.4-10.2) 01/01/19 07:03 Phosphorus 3.10 mg/dL (2.5-4.5) 12/22/18 07:42 Magnesium 1.30 mg/dL (1.7-2.3) L 01/01/19 07:03 Total Bilirubin 1.20 mg/dL (0.1-1.2) 12/20/18 03:06 AST 33 units/L (5-40) 12/20/18 03:06 ALT 17 units/L (7-56) 12/20/18 03:06 Alkaline Phosphatase 59 units/L (35-129) 12/20/18 03:06 Total Creatine Kinase 61 units/L (30-135) 12/22/18 07:42 NT-Pro-B Natriuret Pep 36580 pg/mL (0-900) H 12/20/18 03:06 Total Protein 6.3 g/dL (6.3-8.2) 12/20/18 03:06 Albumin 2.8 g/dL (3.9-5) L 12/20/18 03:06 Albumin/Globulin Ratio 0.8 % 12/20/18 03:06 25-OH Vitamin D Total See scanned results 12/22/18 13:10 25-Hydroxy Vitamin D2 See scanned results 12/22/18 13:10 25-Hydroxy Vitamin D3 See scanned results 12/22/18 13:10 PTH Intact 186.9 pg/mL (15-65) H 12/22/18 07:42 Urine Color Yellow (Yellow) 12/20/18 02:00 Urine Turbidity Slightly-cloudy (Clear) 12/20/18 02:00 Urine pH 5.0 (5.0-7.0) 12/20/18 02:00 Ur Specific [place] 1.008 (1.003-1.030) 12/20/18 02:00 Urine Protein <15 mg/dl mg/dL (Negative) 12/20/18 02:00 Urine Glucose (UA) Neg mg/dL (Negative) 12/20/18 02:00 Urine Ketones Neg mg/dL (Negative) 12/20/18 02:00 Urine Blood Neg (Negative) 12/20/18 02:00 Urine Nitrite Neg (Negative) 12/20/18 02:00 Urine Bilirubin Neg (Negative) 12/20/18 02:00 Urine Urobilinogen < 2.0 mg/dL (<2.0) 12/20/18 02:00 Ur Leukocyte Esterase Neg (Negative) 12/20/18 02:00 Urine WBC (Auto) 1.0 /HPF (0.0-6.0) 12/20/18 02:00 Urine RBC (Auto) 1.0 /HPF (0.0-6.0) 12/20/18 02:00 U Epithel Cells (Auto) 17.0 /HPF (0-13.0) H 12/20/18 02:00 Urine Bacteria (Auto) 1+ /HPF (Negative) 12/20/18 02:00 Amorphous Crystals 1+ 12/20/18 02:00 Hyaline Casts 7 /LPF 12/20/18 02:00 Urine Mucus Few /HPF 12/20/18 02:00 Urine Creatinine 85.8 mg/dL (0.1-20.0) H 12/22/18 00:25 Urine Sodium 21 mmol/L 12/22/18 00:25 Rheumatoid Factor 12 IU/ml (0-13) 12/28/18 12:41 Active Medications - Current Medications Current Medications: Generic Name Dose Route Start Last Admin Trade Name Freq PRN Reason Stop Dose Admin Acetaminophen 650 mg 12/20/18 06:00 12/27/18 10:52 Tylenol PO 650 mg Q4H PRN Administration Pain MILD(1-3)/Fever >100.5/HURTADO Albuterol 2.5 mg 12/21/18 02:00 12/21/18 11:51 Proventil IH 2.5 mg Q4HRT PRN Administration Shortness Of Breath Enoxaparin Sodium 40 mg 12/21/18 12:00 01/02/19 10:04 Lovenox SUB-Q 40 mg QDAY@1000 BARB Administration Magnesium Sulfate 4 gm in 100 mls @ 25 mls/hr 01/02/19 13:00 01/02/19 12:40 Magnesium Sulfate 4gm/100ml IV 01/02/19 16:59 25 mls/hr ONCE ONE Administration Levetiracetam 750 mg 12/23/18 22:00 01/02/19 10:04 Keppra PO 750 mg BID BARB Administration Loperamide HCl 2 mg 12/24/18 12:22 12/28/18 20:18 Imodium PO 2 mg Q2H PRN Administration Diarrhea Lorazepam 1 mg 12/20/18 06:07 Ativan IV Q1H PRN Seizures Magnesium Oxide 400 mg 12/30/18 14:00 01/02/19 13:18 Mag-Ox PO 400 mg TID BARB Administration Ondansetron HCl 4 mg 12/20/18 06:00 Zofran IV Q8H PRN Nausea And Vomiting Pantoprazole Sodium 40 mg 12/25/18 14:00 01/02/19 10:04 Protonix PO 40 mg QDAY BARB Administration Sodium Chloride 10 ml 12/20/18 10:00 01/02/19 10:05 Sodium Chloride Flush Syringe 10 Ml IV 10 ml BID BARB Administration Sodium Chloride 10 ml 12/20/18 06:00 01/02/19 12:42 Sodium Chloride Flush Syringe 10 Ml IV 10 ml PRN PRN Administration LINE FLUSH Nutrition/Malnutrition Assess - Dietary Evaluation Nutrition/Malnutrition Findings: Nutrition Notes Start: 12/27/18 10:12 Freq: Status: Active Protocol: Document 12/31/18 16:08 RM (Rec: 12/31/18 16:14 RM [id number]) Nutrition Notes Initial or Follow up Reassessment Current Diagnosis Hypertension,Heart Failure, Respiratory Failure Other Pertinent Diagnosis arthritis, seizures Current Diet Cardiac w/Ensure Enlive BID Labs/Tests Reviewed Pertinent Medications Reviewed Height 5 ft 6 in Weight 94.3 kg [place] Body Weight (kg) 59.09 BMI 33.5 Subjective/Other Information Pt stated that her appetite is good. Noted breakfast at bedside w/100% eaten. Also stated that she drinks the Ensure Enlive. Percent of energy/protein needs met: 100%/100% Burn Absent Trauma Absent #2 Nutrition Diagnosis Malnutrition Diagnosis Progress(for reassessment Continues documentation) #1 Nutrition Diagnosis Inadequate oral intake As Evidenced by Signs and Symptoms pt meeting 100% of calorie and protein needs Diagnosis Progress(for reassessment Resolved documentation) Is patient on ventilator? No Is Patient Ambulatory and/or Out of Bed No REE-([facility]-confined to bed) [phone] Calculation Used for Recommendations [facility] Additional Notes Protein: 94.3-113 g/day (1-1. 2g/kg) Fluid: 1 ml/kcal Nutrition Intervention Change Diet Order: Continue current Add Supplement/Snack (indicate name/kcal Ensure Enlive 1 daily /protein ) Provides kCal: 350 Provides Protein (gm) 20 Goal #1 Continue to meet at least 75% of calorie and protein needs Follow-Up By: 01/03/19 Additional Comments Follow for PO and ONS intakes
--- NOTE | 2019-01-02 18:38 | Progress Note ---
Assessment and Plan Patient awake and resting on O2 2 litres. O2 saturation 97%.No complaint of chest pain,shortness of breath and cough.CT of chest reported idiopathic pulmonary fibrosis.Rheumatoid factor negative. Obtaining CARMEN level and other collagen work up. - Patient Problems (1) Fluid overload Current Visit: Yes Status: Acute Plan to address problem: Improved. (2) Breakthrough seizure Current Visit: Yes Status: Acute Plan to address problem: Patient is on Keppra and Lorazepam (3) Pulmonary fibrosis Current Visit: Yes Status: Acute Plan to address problem: Bibasilar scarring and fibrosis. MICHAEL, CARMEN level, CANCA PFTs as out patient. Subjective Date of service: 01/02/19 Principal diagnosis: Chronic respiratory failure, Severe pulmonary HTN; Pulmonary fibrosis Interval history: Patient awake and resting on O2 2 litres. O2 saturation 97%.No complaint of chest pain,shortness of breath and cough.CT of chest reported idiopathic pulmonary fibrosis.Rheumatoid factor negative. Obtaining CARMEN level and other collagen work up. Objective Vital Signs - 12hr 01/02/19 01/02/19 07:06 10:00 Temperature 99.0 F Pulse Rate 86 Pulse Rate [ 86 Right Brachial] Respiratory 18 18 Rate Blood Pressure 107/59 O2 Sat by Pulse 99 97 Oximetry Constitutional: no acute distress, alert, other (elderly looking obese AAF, normocephalic and atraumatic) Eyes: non-icteric ENT: oropharynx moist Neck: supple, no JVD Effort: mildly labored Ascultation: Bilateral: diminished breath sounds (basilar inspiratory crackles) Percussion: Bilateral: not dull Cardiovascular: regular rate and rhythm, other (S1,S2, no murmurs, gallops or rubs) Gastrointestinal: normoactive bowel sounds, soft, non-tender, non-distended Integumentary: normal Extremities: no cyanosis, no edema, pulses normal, no ischemia or petechiae Neurologic: normal mental status, non-focal exam, pupils equal and round, CN II- XII normal, motor strength normal and Psychiatric: mood appropriate, affect normal CBC and BMP: 01/01/19 07:03 01/01/19 07:03 ABG, PT/INR, D-dimer: ABG POC ABG pH 7.359 (7.35-7.45) 12/25/18 14:23 POC ABG pCO2 42.6 (35-45) 12/25/18 14:23 POC ABG pO2 65 (80-105) L 12/25/18 14:23 POC ABG HCO3 24.0 (22-26 mml/L) 12/25/18 14:23 POC ABG Total CO2 25 (23-27mmol/L) 12/25/18 14:23 POC ABG O2 Sat 92 12/25/18 14:23 PT/INR, D-dimer PT 15.1 Sec. (12.2-14.9) H 12/20/18 03:06 INR 1.12 (0.87-1.13) 12/20/18 03:06 Abnormal lab findings: Abnormal Labs 12/20/18 12/20/18 12/20/18 02:00 03:06 03:06 WBC 14.4 H RBC 3.55 L Hgb Hct RDW 19.9 H PT 15.1 H POC ABG pO2 Sodium Potassium Chloride BUN Creatinine Glucose Calcium Magnesium Total Creatine Kinase NT-Pro-B Natriuret Pep Albumin PTH Intact U Epithel Cells (Auto) 17.0 H Urine Creatinine 12/20/18 12/20/18 12/21/18 03:06 07:39 06:08 WBC RBC Hgb Hct RDW PT POC ABG pO2 Sodium 129 L 130 L Potassium 3.0 L Chloride 86.1 L 88.9 L BUN 35 H 43 H Creatinine 1.4 H 1.6 H Glucose 125 H 131 H Calcium 6.0 L 6.3 L Magnesium 0.40 L* 1.00 L 1.00 L Total Creatine Kinase 238 H NT-Pro-B Natriuret Pep 73904 H Albumin 2.8 L PTH Intact U Epithel Cells (Auto) Urine Creatinine 12/22/18 12/22/18 12/22/18 00:25 07:42 07:42 WBC RBC Hgb Hct RDW PT POC ABG pO2 Sodium 131 L Potassium 3.3 L Chloride 91.8 L BUN 41 H Creatinine 1.4 H Glucose 118 H Calcium 7.3 L D Magnesium 1.60 L Total Creatine Kinase NT-Pro-B Natriuret Pep Albumin PTH Intact 186.9 H U Epithel Cells (Auto) Urine Creatinine 85.8 H 12/23/18 12/24/18 12/25/18 08:05 06:53 06:09 WBC RBC Hgb Hct RDW PT POC ABG pO2 Sodium 133 L 133 L Potassium Chloride 97.3 L BUN 31 H 26 H 26 H Creatinine Glucose 102 H 109 H 104 H Calcium Magnesium 1.30 L Total Creatine Kinase NT-Pro-B Natriuret Pep Albumin PTH Intact U Epithel Cells (Auto) Urine Creatinine 12/25/18 12/26/18 12/27/18 14:23 07:12 04:09 WBC RBC Hgb Hct RDW PT POC ABG pO2 65 L Sodium 135 L Potassium Chloride BUN 21 H Creatinine Glucose 104 H Calcium Magnesium 1.60 L 1.60 L Total Creatine Kinase NT-Pro-B Natriuret Pep Albumin PTH Intact U Epithel Cells (Auto) Urine Creatinine 12/28/18 12/30/18 12/30/18 05:24 05:36 05:36 WBC RBC 2.72 L Hgb 8.6 L Hct 25.9 L RDW 20.2 H PT POC ABG pO2 Sodium 136 L Potassium Chloride BUN Creatinine Glucose 127 H Calcium Magnesium 1.20 L Total Creatine Kinase NT-Pro-B Natriuret Pep Albumin PTH Intact U Epithel Cells (Auto) Urine Creatinine 12/31/18 12/31/18 01/01/19 05:36 05:36 07:03 WBC RBC 2.90 L 2.75 L Hgb 8.9 L 8.6 L Hct 27.6 L 26.2 L RDW 20.0 H 19.7 H PT POC ABG pO2 Sodium Potassium Chloride BUN Creatinine Glucose 119 H Calcium Magnesium Total Creatine Kinase NT-Pro-B Natriuret Pep Albumin PTH Intact U Epithel Cells (Auto) Urine Creatinine 01/01/19 07:03 WBC RBC Hgb Hct RDW PT POC ABG pO2 Sodium 136 L Potassium Chloride BUN Creatinine Glucose 101 H Calcium Magnesium 1.30 L Total Creatine Kinase NT-Pro-B Natriuret Pep Albumin PTH Intact U Epithel Cells (Auto) Urine Creatinine Allied health notes reviewed: nursing
[2019-01-03] MEDS: PROTONIX PO SCH (09:45)
[2019-01-03] MEDS: KEPPRA PO SCH ×2 (09:45→21:52)
[2019-01-03] MEDS: MAG-OX PO SCH ×3 (09:45→21:53)
[2019-01-03] MEDS: LOVENOX SUB-Q SCH (09:46)
[2019-01-03] MEDS: SODIUM CHLORIDE FLUSH SYRINGE 10 ML IV SCH ×2 (09:47→21:53)
--- NOTE | 2019-01-03 10:33 | Progress Note ---
Assessment and Plan 1. Acute kidney injury: Vasomotor RADHIKA due to volume depletion. Renal US negative for hydro. Renal function is better. Monitor renal function. Avoid nephrotoxic agents. Meds dosage based on GFR. 2. FEN: Hypomagnesemia, replete Mg as needed. Likely from diarrhea. Hypokalemia, improved. Monitor lytes. 3. Chronic hypoxemic respiratory failure. 4. Severe pulmonary HTN: Pulmonary fibrosis. 5. Seizures. 6. Diarrhea: Mostly resolved. Subjective Date of service: 01/03/19 Principal diagnosis: Chronic respiratory failure, Severe pulmonary HTN; Pulmonary fibrosis Interval history: Patient was seen and examined at the bedside. No diarrhea. Objective - Vital Signs Vital signs: Vital Signs - 12hr 01/03/19 01/03/19 02:09 08:29 Temperature 98.4 F 98.9 F Pulse Rate 92 H 85 Respiratory 18 16 Rate Blood Pressure 98/52 103/55 O2 Sat by Pulse 96 98 Oximetry - General Appearance General appearance: well-developed, well-nourished, appears stated age, other EENT: ATNC (in distress), PERRL, mucous membranes moist, hearing intact, vision intact Neck: supple Respiratory: Present: Clear to Ascultation Cardiology: regular, S1S2, no murmurs Gastrointestinal: normoactive bowel sounds Integumentary: no rash, warm and dry Neurologic: no focal deficit, no asterixis, alert and oriented x3 Musculoskeletal: other (no edema) Psychiatric: cooperative - Lab 01/01/19 07:03 01/01/19 07:03 Most recent lab results Calcium 9.9 mg/dL (8.4-10.2) 01/01/19 07:03 Phosphorus 3.10 mg/dL (2.5-4.5) 12/22/18 07:42 Magnesium 2.10 mg/dL (1.7-2.3) 01/03/19 04:59 Urine Creatinine 85.8 mg/dL (0.1-20.0) H 12/22/18 00:25 Urine Sodium 21 mmol/L 12/22/18 00:25 Medications & Allergies - Medications Allergies/Adverse Reactions: Allergies lisinopril Allergy (Verified 08/13/13 15:50) Angioedema Home Medications: Home Medications Medication Instructions Recorded Confirmed Last Taken Type Carvedilol [Coreg] 3.125 mg PO DAILY 12/20/18 12/20/18 Unknown History Iron [Iron 18 MG TAB] 18 mg PO QDAY 12/20/18 12/20/18 Unknown History Omeprazole 20 mg PO DAILY 12/20/18 12/20/18 Unknown History Potassium Chloride [K-Dur] 10 meq PO BID 12/20/18 12/20/18 Unknown History Loperamide [Imodium] 2 mg PO Q2HR PRN #10 capsule 12/23/18 Unknown Rx Magnesium Oxide [Magnesium] 200 mg PO DAILY #10 tab.chew 12/23/18 Unknown Rx levETIRAcetam [Keppra TAB] 750 mg PO BID #60 tablet 12/23/18 Unknown Rx Active Medications: Generic Name Dose Route Start Last Admin Trade Name Freq PRN Reason Stop Dose Admin Acetaminophen 650 mg 12/20/18 06:00 12/27/18 10:52 Tylenol PO 650 mg Q4H PRN Administration Pain MILD(1-3)/Fever >100.5/HURTADO Albuterol 2.5 mg 12/21/18 02:00 12/21/18 11:51 Proventil IH 2.5 mg Q4HRT PRN Administration Shortness Of Breath Enoxaparin Sodium 40 mg 12/21/18 12:00 01/03/19 09:46 Lovenox SUB-Q 40 mg QDAY@1000 BARB Administration Levetiracetam 750 mg 12/23/18 22:00 01/03/19 09:45 Keppra PO 750 mg BID BARB Administration Loperamide HCl 2 mg 12/24/18 12:22 12/28/18 20:18 Imodium PO 2 mg Q2H PRN Administration Diarrhea Lorazepam 1 mg 12/20/18 06:07 Ativan IV Q1H PRN Seizures Magnesium Oxide 400 mg 12/30/18 14:00 01/03/19 09:45 Mag-Ox PO 400 mg TID BARB Administration Ondansetron HCl 4 mg 12/20/18 06:00 Zofran IV Q8H PRN Nausea And Vomiting Pantoprazole Sodium 40 mg 12/25/18 14:00 01/03/19 09:45 Protonix PO 40 mg QDAY BARB Administration Sodium Chloride 10 ml 12/20/18 10:00 01/03/19 09:47 Sodium Chloride Flush Syringe 10 Ml IV 10 ml BID BARB Administration Sodium Chloride 10 ml 12/20/18 06:00 01/02/19 12:42 Sodium Chloride Flush Syringe 10 Ml IV 10 ml PRN PRN Administration LINE FLUSH
--- NOTE | 2019-01-03 11:34 | Progress Note ---
Assessment and Plan Assessment and plan: Patient is a 68 yo woman with history OA, CHF, chronic respiratory failure on home o2, seizure disorder not on meds for 5 years who presented with seizure like activity witnessed by the Son. She was found to have low magnesium at 0.4, low Na, K and Ca. CT head showed no acute process. She is on torsemide at home. * CXR: No acute pulmonary finding identified. Bibasilar scarring/fibrosis. * CT abdomen/pelvis; There is cholelithiasis.. There are no kidney stones. There is no hydronephrosis. There is diverticulosis of the colon. There is no diverticulitis, colitis, obstruction or mass. The appendix is normal. . There is air in the bladder. There is a left-sided bladder diverticulum.. There is no ascites, free air, abscess or adenopathy.. . * CT head: There is no acute intracranial abnormality. . * 2D echo: EF 60-65%, moderate to severe PHTN The patient presented with seizures, her magnesium was repleted, she was treated with seizure medications -The patient had diarrhea, she was empirically treated with Flagyl 1 week, last dose 12/30/18 -She was continued on home oxygen for chronic respiratory failure -Echo was performed and showed preserved EF, potassium was also repleted, calcium was repleted, she had some dehydration for which she received IV fluids -Acute kidney injury was likely due to a combination of ATN and vasomotor nephropathy, the patient has some chronic kidney disease at baseline, she improved with hydration -She received physical therapy for ataxia and osteoarthritis. -The patient is awaiting placement in a subacute rehabilitation facility Diagnoses Status epilepticus Transient autonomic imbalance Severe pulmonary hypertension CHF ruled out Hypokalemia Severe hypomagnesemia Hypocalcemia Hyponatremia Acute kidney injury due to vasomotor nephropathy Diarrhea NOS Chronic hypoxic respiratory failure History Interval history: Review of systems Constitutional: No fevers, no malaise, no joint pains CVS: No chest pain, no orthopnea, no dyspnea on exertion, no pedal edema GI: No abdominal pain, no diarrhea, no vomiting, no constipation Respiratory: no wheezing, no coughing Hospitalist Physical - Physical exam Narrative exam: General.: Appears well, no distress, nontoxic HEENT: Moist mucous membranes, extraocular muscles intact, no lymphadenopathy Neck: supple Cardiac: S1-S2 heard Lungs: clear to auscultation bilaterally Abdomen: soft , nontender, nondistended, bowel sounds positive Extremities: no edema clubbing or cyanosis Skin: no rash or lesions Neurologic: no gross focal deficits Psych: calm, and cooperative - Constitutional Vitals: Temp Pulse Resp BP Pulse Ox 98.9 F 85 16 103/55 98 01/03/19 08:29 01/03/19 08:29 01/03/19 08:29 01/03/19 08:29 01/03/19 08:29 Results - Labs CBC & Chem 7: 01/01/19 07:03 01/01/19 07:03 Labs: Laboratory Last Values WBC 6.4 K/mm3 (4.5-11.0) 01/01/19 07:03 RBC 2.75 M/mm3 (3.65-5.03) L 01/01/19 07:03 Hgb 8.6 gm/dl (10.1-14.3) L 01/01/19 07:03 Hct 26.2 % (30.3-42.9) L 01/01/19 07:03 MCV 96 fl (79-97) 01/01/19 07:03 MCH 31 pg (28-32) 01/01/19 07:03 MCHC 33 % (30-34) 01/01/19 07:03 RDW 19.7 % (13.2-15.2) H 01/01/19 07:03 Plt Count 368 K/mm3 (140-440) 01/01/19 07:03 PT 15.1 Sec. (12.2-14.9) H 12/20/18 03:06 INR 1.12 (0.87-1.13) 12/20/18 03:06 Lupus Anticoagulant See scanned results 12/28/18 12:41 LA PTT Baseline See scanned results 12/28/18 12:41 dRVVT Screen 50:50 See scanned results 12/28/18 12:41 dRVVT Mix Interpret See scanned results 12/28/18 12:41 POC ABG pH 7.359 (7.35-7.45) 12/25/18 14:23 POC ABG pCO2 42.6 (35-45) 12/25/18 14:23 POC ABG pO2 65 (80-105) L 12/25/18 14:23 POC ABG HCO3 24.0 (22-26 mml/L) 12/25/18 14:23 POC ABG Total CO2 25 (23-27mmol/L) 12/25/18 14:23 POC ABG O2 Sat 92 12/25/18 14:23 POC ABG Base Excess -1 ((-2) - (+3)mmol/L) 12/25/18 14:23 FiO2 21 % 12/25/18 14:23 Sodium 136 mmol/L (137-145) L 01/01/19 07:03 Potassium 4.0 mmol/L (3.6-5.0) 01/01/19 07:03 Chloride 100.7 mmol/L (98-107) 01/01/19 07:03 Carbon Dioxide 27 mmol/L (22-30) 01/01/19 07:03 Anion Gap 12 mmol/L 01/01/19 07:03 BUN 8 mg/dL (7-17) 01/01/19 07:03 Creatinine 0.9 mg/dL (0.7-1.2) 01/01/19 07:03 Estimated GFR > 60 ml/min 01/01/19 07:03 BUN/Creatinine Ratio 9 % 01/01/19 07:03 Glucose 101 mg/dL (65-100) H 01/01/19 07:03 POC Glucose 98 (70-105) 12/22/18 12:57 Calcium 9.9 mg/dL (8.4-10.2) 01/01/19 07:03 Phosphorus 3.10 mg/dL (2.5-4.5) 12/22/18 07:42 Magnesium 2.10 mg/dL (1.7-2.3) 01/03/19 04:59 Total Bilirubin 1.20 mg/dL (0.1-1.2) 12/20/18 03:06 AST 33 units/L (5-40) 12/20/18 03:06 ALT 17 units/L (7-56) 12/20/18 03:06 Alkaline Phosphatase 59 units/L (35-129) 12/20/18 03:06 Total Creatine Kinase 61 units/L (30-135) 12/22/18 07:42 NT-Pro-B Natriuret Pep 64810 pg/mL (0-900) H 12/20/18 03:06 Total Protein 6.3 g/dL (6.3-8.2) 12/20/18 03:06 Albumin 2.8 g/dL (3.9-5) L 12/20/18 03:06 Albumin/Globulin Ratio 0.8 % 12/20/18 03:06 Angiotensin Convert Enz See scanned results 12/28/18 12:41 25-OH Vitamin D Total See scanned results 12/22/18 13:10 25-Hydroxy Vitamin D2 See scanned results 12/22/18 13:10 25-Hydroxy Vitamin D3 See scanned results 12/22/18 13:10 PTH Intact 186.9 pg/mL (15-65) H 12/22/18 07:42 Urine Color Yellow (Yellow) 12/20/18 02:00 Urine Turbidity Slightly-cloudy (Clear) 12/20/18 02:00 Urine pH 5.0 (5.0-7.0) 12/20/18 02:00 Ur Specific [place] 1.008 (1.003-1.030) 12/20/18 02:00 Urine Protein <15 mg/dl mg/dL (Negative) 12/20/18 02:00 Urine Glucose (UA) Neg mg/dL (Negative) 12/20/18 02:00 Urine Ketones Neg mg/dL (Negative) 12/20/18 02:00 Urine Blood Neg (Negative) 12/20/18 02:00 Urine Nitrite Neg (Negative) 12/20/18 02:00 Urine Bilirubin Neg (Negative) 12/20/18 02:00 Urine Urobilinogen < 2.0 mg/dL (<2.0) 12/20/18 02:00 Ur Leukocyte Esterase Neg (Negative) 12/20/18 02:00 Urine WBC (Auto) 1.0 /HPF (0.0-6.0) 12/20/18 02:00 Urine RBC (Auto) 1.0 /HPF (0.0-6.0) 12/20/18 02:00 U Epithel Cells (Auto) 17.0 /HPF (0-13.0) H 12/20/18 02:00 Urine Bacteria (Auto) 1+ /HPF (Negative) 12/20/18 02:00 Amorphous Crystals 1+ 12/20/18 02:00 Hyaline Casts 7 /LPF 12/20/18 02:00 Urine Mucus Few /HPF 12/20/18 02:00 Urine Creatinine 85.8 mg/dL (0.1-20.0) H 12/22/18 00:25 Urine Sodium 21 mmol/L 12/22/18 00:25 Rheumatoid Factor 12 IU/ml (0-13) 12/28/18 12:41 Sjogren's Antibody <1.0 AI (<1.0) 12/28/18 12:41 Sm ([place]) Antibody 6.2 AI (<1.0) H 12/28/18 12:41 Double Strand DNA Ab <1 IU/mL (<=4) 12/28/18 12:41 Active Medications - Current Medications Current Medications: Generic Name Dose Route Start Last Admin Trade Name Freq PRN Reason Stop Dose Admin Acetaminophen 650 mg 12/20/18 06:00 12/27/18 10:52 Tylenol PO 650 mg Q4H PRN Administration Pain MILD(1-3)/Fever >100.5/HURTADO Albuterol 2.5 mg 12/21/18 02:00 12/21/18 11:51 Proventil IH 2.5 mg Q4HRT PRN Administration Shortness Of Breath Enoxaparin Sodium 40 mg 12/21/18 12:00 01/03/19 09:46 Lovenox SUB-Q 40 mg QDAY@1000 BARB Administration Levetiracetam 750 mg 12/23/18 22:00 01/03/19 09:45 Keppra PO 750 mg BID BARB Administration Loperamide HCl 2 mg 12/24/18 12:22 12/28/18 20:18 Imodium PO 2 mg Q2H PRN Administration Diarrhea Lorazepam 1 mg 12/20/18 06:07 Ativan IV Q1H PRN Seizures Magnesium Oxide 400 mg 12/30/18 14:00 01/03/19 09:45 Mag-Ox PO 400 mg TID BARB Administration Ondansetron HCl 4 mg 12/20/18 06:00 Zofran IV Q8H PRN Nausea And Vomiting Pantoprazole Sodium 40 mg 12/25/18 14:00 01/03/19 09:45 Protonix PO 40 mg QDAY BARB Administration Sodium Chloride 10 ml 12/20/18 10:00 01/03/19 09:47 Sodium Chloride Flush Syringe 10 Ml IV 10 ml BID BARB Administration Sodium Chloride 10 ml 12/20/18 06:00 01/02/19 12:42 Sodium Chloride Flush Syringe 10 Ml IV 10 ml PRN PRN Administration LINE FLUSH Nutrition/Malnutrition Assess - Dietary Evaluation Nutrition/Malnutrition Findings: Nutrition Notes Start: 12/27/18 10:12 Freq: Status: Active Protocol: Document 12/31/18 16:08 RM (Rec: 12/31/18 16:14 RM [email or web address]) Nutrition Notes Initial or Follow up Reassessment Current Diagnosis Hypertension,Heart Failure, Respiratory Failure Other Pertinent Diagnosis arthritis, seizures Current Diet Cardiac w/Ensure Enlive BID Labs/Tests Reviewed Pertinent Medications Reviewed Height 5 ft 6 in Weight 94.3 kg [place] Body Weight (kg) 59.09 BMI 33.5 Subjective/Other Information Pt stated that her appetite is good. Noted breakfast at bedside w/100% eaten. Also stated that she drinks the Ensure Enlive. Percent of energy/protein needs met: 100%/100% Burn Absent Trauma Absent #2 Nutrition Diagnosis Malnutrition Diagnosis Progress(for reassessment Continues documentation) #1 Nutrition Diagnosis Inadequate oral intake As Evidenced by Signs and Symptoms pt meeting 100% of calorie and protein needs Diagnosis Progress(for reassessment Resolved documentation) Is patient on ventilator? No Is Patient Ambulatory and/or Out of Bed No REE-([facility]-confined to bed) 5737.709 Calculation Used for Recommendations [facility] Additional Notes Protein: 94.3-113 g/day (1-1. 2g/kg) Fluid: 1 ml/kcal Nutrition Intervention Change Diet Order: Continue current Add Supplement/Snack (indicate name/kcal Ensure Enlive 1 daily /protein ) Provides kCal: 350 Provides Protein (gm) 20 Goal #1 Continue to meet at least 75% of calorie and protein needs Follow-Up By: 01/03/19 Additional Comments Follow for PO and ONS intakes
--- NOTE | 2019-01-03 14:36 | Progress Note ---
Assessment and Plan Chronic hypoxemic respiratory failure Severe pulmonary HTN Pulmonary fibrosis Mediastinal adenopathy Acute seizure, could have been secondary to arrhythmias , Pulm HTN Acute kidney injury-Vasomotor RADHIKA due to volume depletion. Hyponatremia - continue with supplemental oxygen to keep O2 sat's > 90% and compliance with the oxygen therapy encouraged - Right heart cath to evaluate pulmonary pressures, this is possibly Group 3 PHTN - Work up for pulmonary HTN ongoing; (Sjogren's and lupus screens unremarkable) - Will need outpatient sleep study as part of her work up for pulmonary HTN - her low BP makes trial; of Revatio bothersome - needs out patient pulmonary follow up on discharge - continue GI & VTE prophylaxis - PT/OT/Mobility as tolerated - Bronchodilators per protocol - continue to Avoid nephrotoxic agents - Seizure prophylaxis - continue other care per attending / other consultants ... re-evaluate in am & prn Subjective Date of service: 01/03/19 Principal diagnosis: Chronic respiratory failure, Severe pulmonary HTN; Pulmonary fibrosis Interval history: Patient is seen today for: Chronic respiratory failure, Severe pulmonary HTN; Pulmonary fibrosis Seen and examined at bedside; 24-hour events reviewed; nursing and respiratory care staff consulted; no adverse overnight events reported to me; resting in bed; remains on supplemental oxygen; denies acute chest pains; NO N/V/F/C Objective Vital Signs - 12hr 01/03/19 01/03/19 08:29 10:00 Temperature 98.9 F Pulse Rate 85 Pulse Rate [ 82 Right Brachial] Respiratory 16 20 Rate Blood Pressure 103/55 O2 Sat by Pulse 98 98 Oximetry Constitutional: no acute distress, alert, other (elderly looking obese AAF, normocephalic and atraumatic) Eyes: non-icteric ENT: oropharynx moist Neck: supple, no JVD, other (large neck circumference) Effort: mildly labored Ascultation: Bilateral: diminished breath sounds (basilar inspiratory rales) Percussion: Bilateral: not dull Cardiovascular: regular rate and rhythm, other (S1,S2, no murmurs, gallops or rubs) Gastrointestinal: normoactive bowel sounds, soft, non-tender, non-distended Integumentary: normal Extremities: no cyanosis, no edema, pulses normal, no ischemia or petechiae Neurologic: normal mental status, non-focal exam, pupils equal and round, CN II- XII normal, motor strength normal and Psychiatric: mood appropriate, affect normal CBC and BMP: 01/01/19 07:03 01/01/19 07:03 ABG, PT/INR, D-dimer: ABG POC ABG pH 7.359 (7.35-7.45) 12/25/18 14:23 POC ABG pCO2 42.6 (35-45) 12/25/18 14:23 POC ABG pO2 65 (80-105) L 12/25/18 14:23 POC ABG HCO3 24.0 (22-26 mml/L) 12/25/18 14:23 POC ABG Total CO2 25 (23-27mmol/L) 12/25/18 14:23 POC ABG O2 Sat 92 12/25/18 14:23 PT/INR, D-dimer PT 15.1 Sec. (12.2-14.9) H 12/20/18 03:06 INR 1.12 (0.87-1.13) 12/20/18 03:06 Abnormal lab findings: Abnormal Labs 12/20/18 12/20/18 12/20/18 02:00 03:06 03:06 WBC 14.4 H RBC 3.55 L Hgb Hct RDW 19.9 H PT 15.1 H POC ABG pO2 Sodium Potassium Chloride BUN Creatinine Glucose Calcium Magnesium Total Creatine Kinase NT-Pro-B Natriuret Pep Albumin PTH Intact U Epithel Cells (Auto) 17.0 H Urine Creatinine Sm ([place]) Antibody 12/20/18 12/20/18 12/21/18 03:06 07:39 06:08 WBC RBC Hgb Hct RDW PT POC ABG pO2 Sodium 129 L 130 L Potassium 3.0 L Chloride 86.1 L 88.9 L BUN 35 H 43 H Creatinine 1.4 H 1.6 H Glucose 125 H 131 H Calcium 6.0 L 6.3 L Magnesium 0.40 L* 1.00 L 1.00 L Total Creatine Kinase 238 H NT-Pro-B Natriuret Pep 13040 H Albumin 2.8 L PTH Intact U Epithel Cells (Auto) Urine Creatinine Sm ([place]) Antibody 12/22/18 12/22/18 12/22/18 00:25 07:42 07:42 WBC RBC Hgb Hct RDW PT POC ABG pO2 Sodium 131 L Potassium 3.3 L Chloride 91.8 L BUN 41 H Creatinine 1.4 H Glucose 118 H Calcium 7.3 L D Magnesium 1.60 L Total Creatine Kinase NT-Pro-B Natriuret Pep Albumin PTH Intact 186.9 H U Epithel Cells (Auto) Urine Creatinine 85.8 H Sm ([place]) Antibody 12/23/18 12/24/18 12/25/18 08:05 06:53 06:09 WBC RBC Hgb Hct RDW PT POC ABG pO2 Sodium 133 L 133 L Potassium Chloride 97.3 L BUN 31 H 26 H 26 H Creatinine Glucose 102 H 109 H 104 H Calcium Magnesium 1.30 L Total Creatine Kinase NT-Pro-B Natriuret Pep Albumin PTH Intact U Epithel Cells (Auto) Urine Creatinine Sm ([place]) Antibody 12/25/18 12/26/18 12/27/18 14:23 07:12 04:09 WBC RBC Hgb Hct RDW PT POC ABG pO2 65 L Sodium 135 L Potassium Chloride BUN 21 H Creatinine Glucose 104 H Calcium Magnesium 1.60 L 1.60 L Total Creatine Kinase NT-Pro-B Natriuret Pep Albumin PTH Intact U Epithel Cells (Auto) Urine Creatinine Sm ([place]) Antibody 12/28/18 12/28/18 12/30/18 05:24 12:41 05:36 WBC RBC 2.72 L Hgb 8.6 L Hct 25.9 L RDW 20.2 H PT POC ABG pO2 Sodium 136 L Potassium Chloride BUN Creatinine Glucose Calcium Magnesium Total Creatine Kinase NT-Pro-B Natriuret Pep Albumin PTH Intact U Epithel Cells (Auto) Urine Creatinine Sm ([place]) Antibody 6.2 H 12/30/18 12/31/18 12/31/18 05:36 05:36 05:36 WBC RBC 2.90 L Hgb 8.9 L Hct 27.6 L RDW 20.0 H PT POC ABG pO2 Sodium Potassium Chloride BUN Creatinine Glucose 127 H 119 H Calcium Magnesium 1.20 L Total Creatine Kinase NT-Pro-B Natriuret Pep Albumin PTH Intact U Epithel Cells (Auto) Urine Creatinine Sm ([place]) Antibody 01/01/19 01/01/19 07:03 07:03 WBC RBC 2.75 L Hgb 8.6 L Hct 26.2 L RDW 19.7 H PT POC ABG pO2 Sodium 136 L Potassium Chloride BUN Creatinine Glucose 101 H Calcium Magnesium 1.30 L Total Creatine Kinase NT-Pro-B Natriuret Pep Albumin PTH Intact U Epithel Cells (Auto) Urine Creatinine Sm ([place]) Antibody CT scan - chest: image reviewed (severe DPLD) Allied health notes reviewed: nursing
[2019-01-03 22:48] LABS: ANA Screen, IFA Positive (Negative)
[2019-01-04] MEDS ORDERED: MAGNESIUM SULFATE 3 GM in NACL 0.9% 100 ML IV ONE (09:29)
--- NOTE | 2019-01-04 09:30 | Progress Note ---
Assessment and Plan 1. Acute kidney injury: Vasomotor RADHIKA due to volume depletion. Renal US negative for hydro. Renal function is better. Monitor renal function. Avoid nephrotoxic agents. Meds dosage based on GFR. 2. FEN: Hypomagnesemia, replete Mg as needed. Likely from diarrhea. Hypokalemia, improved. Monitor lytes. 3. Chronic hypoxemic respiratory failure. 4. Severe pulmonary HTN: Pulmonary fibrosis. 5. Seizures. 6. Diarrhea: Mostly resolved. Subjective Date of service: 01/04/19 Principal diagnosis: Chronic respiratory failure, Severe pulmonary HTN; Pulmonary fibrosis Interval history: Patient was seen and examined at the bedside. No diarrhea. Objective - Vital Signs Vital signs: Vital Signs - 12hr 01/03/19 01/03/19 01/04/19 22:00 22:02 02:23 Temperature 97.6 F Pulse Rate 90 85 Pulse Rate [ 80 Right Brachial] Respiratory 18 20 Rate Blood Pressure 112/60 O2 Sat by Pulse 98 100 98 Oximetry 01/04/19 07:24 Temperature 97.9 F Pulse Rate 87 Pulse Rate [ Right Brachial] Respiratory 20 Rate Blood Pressure 109/58 O2 Sat by Pulse 96 Oximetry - General Appearance General appearance: well-developed, well-nourished, appears stated age, other (not in distress) EENT: ATNC, PERRL, mucous membranes moist, hearing intact, vision intact Neck: supple Respiratory: Present: Clear to Ascultation Cardiology: regular, S1S2, no murmurs Gastrointestinal: normoactive bowel sounds, no tenderness, no distended Integumentary: no rash, warm and dry Neurologic: no focal deficit, no asterixis, alert and oriented x3 Musculoskeletal: other (no edema) Psychiatric: cooperative - Lab 01/01/19 07:03 01/01/19 07:03 Most recent lab results Calcium 9.9 mg/dL (8.4-10.2) 01/01/19 07:03 Phosphorus 3.10 mg/dL (2.5-4.5) 12/22/18 07:42 Magnesium 1.60 mg/dL (1.7-2.3) L 01/04/19 04:25 Urine Creatinine 85.8 mg/dL (0.1-20.0) H 12/22/18 00:25 Urine Sodium 21 mmol/L 12/22/18 00:25 Medications & Allergies - Medications Allergies/Adverse Reactions: Allergies lisinopril Allergy (Verified 08/13/13 15:50) Angioedema Home Medications: Home Medications Medication Instructions Recorded Confirmed Last Taken Type Carvedilol [Coreg] 3.125 mg PO DAILY 12/20/18 12/20/18 Unknown History Iron [Iron 18 MG TAB] 18 mg PO QDAY 12/20/18 12/20/18 Unknown History Omeprazole 20 mg PO DAILY 12/20/18 12/20/18 Unknown History Potassium Chloride [K-Dur] 10 meq PO BID 12/20/18 12/20/18 Unknown History Loperamide [Imodium] 2 mg PO Q2HR PRN #10 capsule 12/23/18 Unknown Rx levETIRAcetam [Keppra TAB] 750 mg PO BID #60 tablet 12/23/18 Unknown Rx Magnesium Chloride [Slow-Mag] 71.5 mg PO BID #60 tablet. 01/04/19 Unknown Rx Active Medications: Generic Name Dose Route Start Last Admin Trade Name Freq PRN Reason Stop Dose Admin Acetaminophen 650 mg 12/20/18 06:00 12/27/18 10:52 Tylenol PO 650 mg Q4H PRN Administration Pain MILD(1-3)/Fever >100.5/[place]URTADO Albuterol 2.5 mg 12/21/18 02:00 12/21/18 11:51 Proventil IH 2.5 mg Q4HRT PRN Administration Shortness Of Breath Enoxaparin Sodium 40 mg 12/21/18 12:00 01/03/19 09:46 Lovenox SUB-Q 40 mg QDAY@1000 BARB Administration Levetiracetam 750 mg 12/23/18 22:00 01/03/19 21:52 Keppra PO 750 mg BID BARB Administration Loperamide HCl 2 mg 12/24/18 12:22 12/28/18 20:18 Imodium PO 2 mg Q2H PRN Administration Diarrhea Lorazepam 1 mg 12/20/18 06:07 Ativan IV Q1H PRN Seizures Magnesium Oxide 800 mg 01/04/19 10:00 Mag-Ox PO BID BARB Ondansetron HCl 4 mg 12/20/18 06:00 Zofran IV Q8H PRN Nausea And Vomiting Pantoprazole Sodium 40 mg 12/25/18 14:00 01/03/19 09:45 Protonix PO 40 mg QDAY BARB Administration Sodium Chloride 10 ml 12/20/18 10:00 01/03/19 21:53 Sodium Chloride Flush Syringe 10 Ml IV 10 ml BID BARB Administration Sodium Chloride 10 ml 12/20/18 06:00 01/02/19 12:42 Sodium Chloride Flush Syringe 10 Ml IV 10 ml PRN PRN Administration LINE FLUSH
--- NOTE | 2019-01-04 09:43 | Discharge Summary ---
Providers - Providers Date of Admission: 12/20/18 07:43 Attending physician: ELTON RAUSCH MD 12/20/18 15:07 Consult to Physician [CONS] Routine Comment: Consulting Provider: KRYSTAL MAGANA Physician Instructions: Reason For Exam: breakthrough seizure 12/21/18 08:31 Consult to Physician [CONS] Routine Comment: Consulting Provider: BLANQUITA TAVARES Physician Instructions: Reason For Exam: isai 12/24/18 11:57 Physical Therapy Evaluation and Treat [CONS] Routine Comment: Reason For Exam: placement 12/24/18 12:10 Consult to Physician [CONS] Routine Comment: Consulting Provider: SONJA BLACKWELL Physician Instructions: Reason For Exam: severe pulmonary HTN 12/28/18 12:46 Occupational Therapy Evaluate and Treat [CONS] Routine Comment: Reason For Exam: Debility Primary care physician: KRYSTAL CHASE Hospitalization Condition: Fair Hospital course: Patient is a 68 yo woman with history OA, CHF, chronic respiratory failure on home o2, seizure disorder not on meds for 5 years who presented with seizure like activity witnessed by the Son. She was found to have low magnesium at 0.4, low Na, K and Ca. CT head showed no acute process. She is on torsemide at home. * CXR: No acute pulmonary finding identified. Bibasilar scarring/fibrosis. * CT abdomen/pelvis; There is cholelithiasis.. There are no kidney stones. There is no hydronephrosis. There is diverticulosis of the colon. There is no diverticulitis, colitis, obstruction or mass. The appendix is normal. . There is air in the bladder. There is a left-sided bladder diverticulum.. There is no ascites, free air, abscess or adenopathy.. . * CT head: There is no acute intracranial abnormality. . * 2D echo: EF 60-65%, moderate to severe PHTN The patient presented with seizures, her magnesium was repleted, she was treated with seizure medications -The patient had diarrhea, she was empirically treated with Flagyl 1 week, last dose 12/30/18 -She was continued on home oxygen for chronic respiratory failure -Echo was performed and showed preserved EF, potassium was also repleted, calcium was repleted, she had some dehydration for which she received IV fluids -Acute kidney injury was likely due to a combination of ATN and vasomotor nephropathy, the patient has some chronic kidney disease at baseline, she improved with hydration -She received physical therapy for ataxia and osteoarthritis. - she was dc to [facility] Diagnoses Status epilepticus Transient autonomic imbalance Severe pulmonary hypertension CHF ruled out Hypokalemia Severe hypomagnesemia Hypocalcemia Hyponatremia Acute kidney injury due to vasomotor nephropathy Diarrhea NOS Chronic hypoxic respiratory failure Disposition: DC/[place]-03 [facility] Time spent for discharge: 33 mins Core Measure Documentation - Palliative Care Palliative Care/ Comfort Measures: Not Applicable - Core Measures Any of the following diagnoses?: none Exam - Physical Exam Narrative exam: General.: Appears well, no distress, nontoxic HEENT: Moist mucous membranes, extraocular muscles intact, no lymphadenopathy Neck: supple Cardiac: S1-S2 heard Lungs: clear to auscultation bilaterally Abdomen: soft , nontender, nondistended, bowel sounds positive Extremities: no edema clubbing or cyanosis Skin: no rash or lesions Neurologic: no gross focal deficits Psych: calm, and cooperative - Constitutional Vitals: Temp Pulse Resp BP Pulse Ox 97.9 F 87 20 109/58 96 01/04/19 07:24 01/04/19 07:24 01/04/19 07:24 01/04/19 07:24 01/04/19 07:24 Plan Follow up with: KRYSTAL CAHSE MD [Primary Care Provider] - 3-5 Days BLANQUITA TAVARES MD [Staff Physician] - 7 Days Prescriptions: Loperamide [Imodium] 2 mg PO Q2HR PRN #10 capsule PRN Reason: Diarrhea levETIRAcetam [Keppra TAB] 750 mg PO BID #60 tablet Magnesium Chloride [Slow-Mag] 71.5 mg PO BID #60 tablet.
[2019-01-04] MEDS ORDERED: MAG-OX PO SCH (10:00)
[2019-01-04] MEDS: LOVENOX SUB-Q SCH (10:50)
[2019-01-04] MEDS: KEPPRA PO SCH (10:50)
[2019-01-04] MEDS: PROTONIX PO SCH (10:51)
[2019-01-04] MEDS: SODIUM CHLORIDE FLUSH SYRINGE 10 ML IV PRN (10:58)
--- NOTE | 2019-01-04 12:08 | Progress Note ---
Assessment and Plan Chronic hypoxemic respiratory failure Severe pulmonary HTN Pulmonary fibrosis Mediastinal adenopathy Acute seizure, could have been secondary to arrhythmias , Pulm HTN Acute kidney injury-Vasomotor RADHIKA due to volume depletion. Hyponatremia - continue with supplemental oxygen to keep O2 sat's > 90% and compliance with the oxygen therapy encouraged - Right heart cath to evaluate pulmonary pressures, this is possibly Group 3 PHTN - Work up for pulmonary HTN ongoing; (Sjogren's and lupus screens unremarkable) - Will need outpatient sleep study as part of her work up for pulmonary HTN - her low BP makes trial; of Revatio bothersome - needs out patient pulmonary follow up on discharge - continue GI & VTE prophylaxis - PT/OT/Mobility as tolerated - Bronchodilators per protocol - continue to Avoid nephrotoxic agents - Seizure prophylaxis - continue other care per attending / other consultants ... re-evaluate in am & prn Subjective Date of service: 01/04/19 Principal diagnosis: Chronic respiratory failure, Severe pulmonary HTN; Pulmonary fibrosis Interval history: Patient is seen today for: Chronic respiratory failure, Severe pulmonary HTN; Pulmonary fibrosis Seen and examined at bedside; 24-hour events reviewed; nursing and respiratory care staff consulted; no adverse overnight events reported to me; resting in bed; Objective Vital Signs - 12hr 01/04/19 01/04/19 02:23 07:24 Temperature 97.6 F 97.9 F Pulse Rate 85 87 Respiratory 20 20 Rate Blood Pressure 112/60 109/58 O2 Sat by Pulse 98 96 Oximetry Constitutional: no acute distress, alert, other (elderly looking obese AAF, normocephalic and atraumatic) Eyes: non-icteric ENT: oropharynx moist Neck: supple, no JVD, other (large neck circumference) Effort: mildly labored Ascultation: Bilateral: diminished breath sounds (basilar inspiratory rales) Percussion: Bilateral: not dull Cardiovascular: regular rate and rhythm, other (S1,S2, no murmurs, gallops or rubs) Gastrointestinal: normoactive bowel sounds, soft, non-tender, non-distended Integumentary: normal Extremities: no cyanosis, no edema, pulses normal, no ischemia or petechiae Neurologic: normal mental status, non-focal exam, pupils equal and round, CN II- XII normal, motor strength normal and Psychiatric: mood appropriate, affect normal CBC and BMP: 01/01/19 07:03 01/01/19 07:03 ABG, PT/INR, D-dimer: ABG POC ABG pH 7.359 (7.35-7.45) 12/25/18 14:23 POC ABG pCO2 42.6 (35-45) 12/25/18 14:23 POC ABG pO2 65 (80-105) L 12/25/18 14:23 POC ABG HCO3 24.0 (22-26 mml/L) 12/25/18 14:23 POC ABG Total CO2 25 (23-27mmol/L) 12/25/18 14:23 POC ABG O2 Sat 92 12/25/18 14:23 PT/INR, D-dimer PT 15.1 Sec. (12.2-14.9) H 12/20/18 03:06 INR 1.12 (0.87-1.13) 12/20/18 03:06 Abnormal lab findings: Abnormal Labs 12/20/18 12/20/18 12/20/18 02:00 03:06 03:06 WBC 14.4 H RBC 3.55 L Hgb Hct RDW 19.9 H PT 15.1 H POC ABG pO2 Sodium Potassium Chloride BUN Creatinine Glucose Calcium Magnesium Total Creatine Kinase NT-Pro-B Natriuret Pep Albumin PTH Intact U Epithel Cells (Auto) 17.0 H Urine Creatinine MICHAEL Screen MICHAEL Titer Sm ([place]) Antibody 12/20/18 12/20/18 12/21/18 03:06 07:39 06:08 WBC RBC Hgb Hct RDW PT POC ABG pO2 Sodium 129 L 130 L Potassium 3.0 L Chloride 86.1 L 88.9 L BUN 35 H 43 H Creatinine 1.4 H 1.6 H Glucose 125 H 131 H Calcium 6.0 L 6.3 L Magnesium 0.40 L* 1.00 L 1.00 L Total Creatine Kinase 238 H NT-Pro-B Natriuret Pep 80655 H Albumin 2.8 L PTH Intact U Epithel Cells (Auto) Urine Creatinine MICHAEL Screen MICHAEL Titer Sm ([place]) Antibody 12/22/18 12/22/18 12/22/18 00:25 07:42 07:42 WBC RBC Hgb Hct RDW PT POC ABG pO2 Sodium 131 L Potassium 3.3 L Chloride 91.8 L BUN 41 H Creatinine 1.4 H Glucose 118 H Calcium 7.3 L D Magnesium 1.60 L Total Creatine Kinase NT-Pro-B Natriuret Pep Albumin PTH Intact 186.9 H U Epithel Cells (Auto) Urine Creatinine 85.8 H MICHAEL Screen MICHAEL Titer Sm ([place]) Antibody 12/23/18 12/24/18 12/25/18 08:05 06:53 06:09 WBC RBC Hgb Hct RDW PT POC ABG pO2 Sodium 133 L 133 L Potassium Chloride 97.3 L BUN 31 H 26 H 26 H Creatinine Glucose 102 H 109 H 104 H Calcium Magnesium 1.30 L Total Creatine Kinase NT-Pro-B Natriuret Pep Albumin PTH Intact U Epithel Cells (Auto) Urine Creatinine MICHAEL Screen MICHAEL Titer Sm ([place]) Antibody 12/25/18 12/26/18 12/27/18 14:23 07:12 04:09 WBC RBC Hgb Hct RDW PT POC ABG pO2 65 L Sodium 135 L Potassium Chloride BUN 21 H Creatinine Glucose 104 H Calcium Magnesium 1.60 L 1.60 L Total Creatine Kinase NT-Pro-B Natriuret Pep Albumin PTH Intact U Epithel Cells (Auto) Urine Creatinine MICHAEL Screen MICHAEL Titer Sm ([place]) Antibody 12/28/18 12/28/18 12/28/18 05:24 12:41 12:41 WBC RBC Hgb Hct RDW PT POC ABG pO2 Sodium 136 L Potassium Chloride BUN Creatinine Glucose Calcium Magnesium Total Creatine Kinase NT-Pro-B Natriuret Pep Albumin PTH Intact U Epithel Cells (Auto) Urine Creatinine MICHAEL Screen Positive H MICHAEL Titer >=1:1280 H Sm ([place]) Antibody 6.2 H 12/30/18 12/30/18 12/31/18 05:36 05:36 05:36 WBC RBC 2.72 L 2.90 L Hgb 8.6 L 8.9 L Hct 25.9 L 27.6 L RDW 20.2 H 20.0 H PT POC ABG pO2 Sodium Potassium Chloride BUN Creatinine Glucose 127 H Calcium Magnesium 1.20 L Total Creatine Kinase NT-Pro-B Natriuret Pep Albumin PTH Intact U Epithel Cells (Auto) Urine Creatinine MICHAEL Screen MICHAEL Titer Sm ([place]) Antibody 12/31/18 01/01/19 01/01/19 05:36 07:03 07:03 WBC RBC 2.75 L Hgb 8.6 L Hct 26.2 L RDW 19.7 H PT POC ABG pO2 Sodium 136 L Potassium Chloride BUN Creatinine Glucose 119 H 101 H Calcium Magnesium 1.30 L Total Creatine Kinase NT-Pro-B Natriuret Pep Albumin PTH Intact U Epithel Cells (Auto) Urine Creatinine MICHAEL Screen MICHAEL Titer Sm ([place]) Antibody 01/04/19 04:25 WBC RBC Hgb Hct RDW PT POC ABG pO2 Sodium Potassium Chloride BUN Creatinine Glucose Calcium Magnesium 1.60 L Total Creatine Kinase NT-Pro-B Natriuret Pep Albumin PTH Intact U Epithel Cells (Auto) Urine Creatinine MICHAEL Screen MICHAEL Titer Sm ([place]) Antibody Allied health notes reviewed: nursing
[2019-01-04 14:08] VITALS: BP 117/69
[2019-01-04 19:59] LABS: Myeloperoxidase Antibody <1.0 AI (<1.0)
== END 2019-01-04 13:25 | DRG 100 ==
LOC: ED 01:49 → 4A 07:43 → 2B-ACE 12-26 19:12
PROVIDERS: ADMIT Internal Medicine; ATTEND Internal Medicine
PROC: 4A033R1 Measurement of Arterial Saturation, Peripheral, Percutaneous Approach (ICD-10-PCS; principal; 2018-12-25)
DX: G40.901 Epilepsy, unspecified, not intractable, with status epilepticus (principal); N17.0 Acute kidney failure with tubular necrosis; E87.1 Hypo-osmolality and hyponatremia; J96.11 Chronic respiratory failure with hypoxia; G90.8 Other disorders of autonomic nervous system; J84.112 Idiopathic pulmonary fibrosis; E87.6 Hypokalemia; E83.42 Hypomagnesemia; E83.51 Hypocalcemia; M19.90 Unspecified osteoarthritis, unspecified site; E66.9 Obesity, unspecified; I27.20 Pulmonary hypertension, unspecified; R59.0 Localized enlarged lymph nodes; R19.7 Diarrhea, unspecified; R27.0 Ataxia, unspecified; N18.9 Chronic kidney disease, unspecified; K80.20 Calculus of gallbladder without cholecystitis without obstruction; K57.30 Diverticulosis of large intestine without perforation or abscess without bleeding; I12.9 Hypertensive chronic kidney disease with stage 1 through stage 4 chronic kidney disease, or unspecified chronic kidney disease; Z99.81 Dependence on supplemental oxygen; Z87.891 Personal history of nicotine dependence; Z68.33 Body mass index [BMI] 33.0-33.9, adult; Z96.653 Presence of artificial knee joint, bilateral
CPT/HCPCS: 36415; 36600; 70450; 71045; 71260; 74176; 76770; 80048; 80053; 81001; 82164; 82306; 82550; 82570; 82803; 82962; 83735; 83880; 83970; 84100; 84300; 85027; 85610; 85613; 86021; 86038; 86225; 86235; 86618; 93005; 93010; 93306; 94640; 94760; 96365; 96368; 96375; G0378; J0610; J1650; J1940; J1953; J3475; J3480; J7030; Q9967

== ENCOUNTER 2019-10-15 16:25 | Inpatient (IN) | payer MEDICARE ==
[2019-10-15 18:06] LABS: Basophils % (Auto) 0.9 % (0.0-1.8); Eosinophils % (Auto) 1.1 % (0.0-4.3); Hematocrit 34.4 % (30.3-42.9); Hemoglobin 11.3 gm/dl (10.1-14.3); Mean Corpuscular HGB Conc 33 % (30-34); Mean Corpuscular Volume 99 fl (79-97); Monocytes # (Auto) 0.5 K/mm3 (0.0-0.8); Monocytes % (Auto) 14.1 % (0.0-7.3); Platelet Count 139 K/mm3 (140-440); Red Blood Count 3.48 M/mm3 (3.65-5.03); Red Cell Distribution Width 17.4 % (13.2-15.2)
[2019-10-15] MEDS ORDERED: FUROSEMIDE 40 MG/4 ML INJ IV ONE (18:07)
--- NOTE | 2019-10-15 18:18 | XRay Report ---
Chest single view INDICATION: Chest pain IMPRESSION: Cardiomegaly with bilateral cardiopulmonary edema pleural effusions. Signer Name: Chi Castellanos MD Signed: 10/15/2019 6:14 PM Workstation Name: [id number]
[2019-10-15 18:34] LABS: Albumin 3.6 g/dL (3.9-5); Calcium 9.5 mg/dL (8.4-10.2)
--- NOTE | 2019-10-15 19:35 | Emergency Department Report ---
ED Shortness of Breath HPI - General Chief Complaint: Dyspnea/Respdistress Stated Complaint: SOB X 2 DAYS Time Seen by Provider: 10/15/19 18:00 - History of Present Illness Initial Comments: Patient is a 69-year-old F Malag[place] female with past medical history of congestive heart failure and hypertension who is presenting with shortness of breath for the last 2 days. Patient is on 2 L of oxygen at home but was satting in the mid 80s. Patient is has increased work of breathing and shortness of breath despite her oxygen therapy. Patient states there is been no chest pain fever but she does have a very mild nonproductive cough starting today. Patient denies nausea vomiting diarrhea at this time. Shortness of breath is worse with exertion. - Related Data Home Medications Medication Instructions Recorded Confirmed Last Taken Cholecalciferol (Vitamin D3) 5,000 unit PO QDAY 10/15/19 10/15/19 Unknown [Vitamin D3 5,000 UNIT] Cyproheptadine [Periactin] 4 mg PO BID 10/15/19 10/15/19 Unknown Gluc/Chondr-MSM 7/C/Juan F/[place] 1 tab PO BID 10/15/19 10/15/19 Unknown [Eql Glucosam-Chondro Complx Tb] Magnesium Oxide [Mag-Ox] 400 mg PO BID 10/15/19 10/15/19 Unknown Omeprazole 20 mg PO BID 10/15/19 10/15/19 Unknown Potassium Chloride 10 meq PO QDAY 10/15/19 10/15/19 Unknown Torsemide [Demadex] 5 mg PO QDAY 10/15/19 10/15/19 Unknown carvediloL [Coreg] 3.125 mg PO BID 10/15/19 10/15/19 Unknown levETIRAcetam [Keppra TAB] 750 mg PO QDAY 10/15/19 10/15/19 Unknown Allergies Allergy/AdvReac Type Severity Reaction Status Date / Time lisinopril Allergy Angioedema Verified 08/13/13 15:50 ED Review of Systems ROS: Stated complaint: SOB X 2 DAYS Other details as noted in HPI Comment: All other systems reviewed and negative ED Past Medical Hx - Past Medical History Previous Medical History?: Yes Hx Hypertension: Yes Hx Congestive Heart Failure: Yes Hx Arthritis: Yes Hx Seizures: Yes - Surgical History Past Surgical History?: Yes Additional Surgical History: bilateral knee surgery - Social History Smoking Status: Unknown if ever smoked Substance Use Type: None - Medications Home Medications: Home Medications Medication Instructions Recorded Confirmed Last Taken Type Cholecalciferol (Vitamin D3) 5,000 unit PO QDAY 10/15/19 10/15/19 Unknown History [Vitamin D3 5,000 UNIT] Cyproheptadine [Periactin] 4 mg PO BID 10/15/19 10/15/19 Unknown History Gluc/Chondr-MSM 7/C/Juan F/[place] 1 tab PO BID 10/15/19 10/15/19 Unknown History [Eql Glucosam-Chondro Complx Tb] Magnesium Oxide [Mag-Ox] 400 mg PO BID 10/15/19 10/15/19 Unknown History Omeprazole 20 mg PO BID 10/15/19 10/15/19 Unknown History Potassium Chloride 10 meq PO QDAY 10/15/19 10/15/19 Unknown History Torsemide [Demadex] 5 mg PO QDAY 10/15/19 10/15/19 Unknown History carvediloL [Coreg] 3.125 mg PO BID 10/15/19 10/15/19 Unknown History levETIRAcetam [Keppra TAB] 750 mg PO QDAY 10/15/19 10/15/19 Unknown History ED Physical Exam - General General appearance: alert, in no apparent distress - Head Head exam: Present: atraumatic, normocephalic - Eye Eye exam: Present: normal appearance - ENT ENT exam: Present: mucous membranes moist - Neck Neck exam: Present: normal inspection - Respiratory Respiratory exam: Present: respiratory distress, rales. Absent: normal lung sounds bilaterally, wheezes, rhonchi - Cardiovascular Cardiovascular Exam: Present: regular rate, normal rhythm, normal heart sounds. Absent: systolic murmur, diastolic murmur, rubs, gallop - GI/Abdominal GI/Abdominal exam: Present: soft, normal bowel sounds. Absent: distended, tenderness, guarding, rebound - Extremities Exam Extremities exam: Present: normal inspection - Back Exam Back exam: Present: normal inspection - Neurological Exam Neurological exam: Present: alert, oriented X3 - Psychiatric Psychiatric exam: Present: normal affect, normal mood - Skin Skin exam: Present: warm, dry, intact, normal color. Absent: rash ED Course Vital Signs 10/15/19 10/15/19 10/15/19 16:50 17:08 17:39 Temperature 98.3 F Pulse Rate 72 68 67 Respiratory 24 20 18 Rate Blood Pressure 119/76 Blood Pressure 137/82 130/88 [Left] O2 Sat by Pulse 100 100 100 Oximetry 10/15/19 17:43 Temperature Pulse Rate Respiratory Rate Blood Pressure Blood Pressure [Left] O2 Sat by Pulse 100 Oximetry ED Medical Decision Making - Lab Data Result diagrams: 10/15/19 17:49 10/15/19 17:49 Lab Results 10/15/19 10/15/19 10/15/19 Range/Units 17:49 17:49 17:49 WBC 3.7 L (4.5-11.0) K/mm3 RBC 3.48 L (3.65-5.03) M/mm3 Hgb 11.3 (10.1-14.3) gm/dl Hct 34.4 (30.3-42.9) % MCV 99 H (79-97) fl MCH 32 (28-32) pg MCHC 33 (30-34) % RDW 17.4 H (13.2-15.2) % Plt Count 139 L (140-440) K/mm3 Lymph % (Auto) 27.0 (13.4-35.0) % Tripp % (Auto) 14.1 H (0.0-7.3) % Eos % (Auto) 1.1 (0.0-4.3) % Baso % (Auto) 0.9 (0.0-1.8) % Lymph # 1.0 L (1.2-5.4) K/mm3 Tripp # 0.5 (0.0-0.8) K/mm3 Eos # 0.0 (0.0-0.4) K/mm3 Baso # 0.0 (0.0-0.1) K/mm3 Seg Neutrophils % 56.9 (40.0-70.0) % Seg Neutrophils # 2.1 (1.8-7.7) K/mm3 D-Dimer 748.36 H (0-234) ng/mlDDU Sodium 135 L (137-145) mmol/L Potassium 4.0 (3.6-5.0) mmol/L Chloride 94.9 L (98-107) mmol/L Carbon Dioxide 23 (22-30) mmol/L Anion Gap 21 mmol/L BUN 23 H (7-17) mg/dL Creatinine 1.6 H (0.7-1.2) mg/dL Estimated GFR 38 ml/min BUN/Creatinine Ratio 14 % Glucose 86 (65-100) mg/dL Calcium 9.5 (8.4-10.2) mg/dL Total Bilirubin 1.30 H (0.1-1.2) mg/dL AST 21 (5-40) units/L ALT 9 (7-56) units/L Alkaline Phosphatase 112 (35-129) units/L Troponin T 0.020 (0.00-0.029) ng/mL NT-Pro-B Natriuret Pep (0-900) pg/mL Total Protein 6.6 (6.3-8.2) g/dL Albumin 3.6 L (3.9-5) g/dL Albumin/Globulin Ratio 1.2 % 10/15/19 Range/Units 18:09 WBC (4.5-11.0) K/mm3 RBC (3.65-5.03) M/mm3 Hgb (10.1-14.3) gm/dl Hct (30.3-42.9) % MCV (79-97) fl MCH (28-32) pg MCHC (30-34) % RDW (13.2-15.2) % Plt Count (140-440) K/mm3 Lymph % (Auto) (13.4-35.0) % Tripp % (Auto) (0.0-7.3) % Eos % (Auto) (0.0-4.3) % Baso % (Auto) (0.0-1.8) % Lymph # (1.2-5.4) K/mm3 Tripp # (0.0-0.8) K/mm3 Eos # (0.0-0.4) K/mm3 Baso # (0.0-0.1) K/mm3 Seg Neutrophils % (40.0-70.0) % Seg Neutrophils # (1.8-7.7) K/mm3 D-Dimer (0-234) ng/mlDDU Sodium (137-145) mmol/L Potassium (3.6-5.0) mmol/L Chloride (98-107) mmol/L Carbon Dioxide (22-30) mmol/L Anion Gap mmol/L BUN (7-17) mg/dL Creatinine (0.7-1.2) mg/dL Estimated GFR ml/min BUN/Creatinine Ratio % Glucose (65-100) mg/dL Calcium (8.4-10.2) mg/dL Total Bilirubin (0.1-1.2) mg/dL AST (5-40) units/L ALT (7-56) units/L Alkaline Phosphatase (35-129) units/L Troponin T (0.00-0.029) ng/mL NT-Pro-B Natriuret Pep 6707 H (0-900) pg/mL Total Protein (6.3-8.2) g/dL Albumin (3.9-5) g/dL Albumin/Globulin Ratio % - Radiology Data Chest x-ray shows cardiomegaly with bilateral pleural effusion and pulmonary edema - Medical Decision Making Patient is O2 sat on room air was in the mid 80s. Patient improved with a nonrebreather 200%. Patient was given Lasix for diuresis. Patient meets criteria for admission secondary to her hypoxia will need to be be admitted for continued diuresis. Critical Care Time: Yes (30) Critical care attestation.: If time is entered above; I have spent that time in minutes in the direct care of this critically ill patient, excluding procedure time. ED Disposition Clinical Impression: Acute exacerbation of congestive heart failure, Fluid overload, Hypoxia Disposition: OP ADMIT IP TO THIS HOSP Is pt being admited?: Yes Does the pt Need Aspirin: No Condition: Stable Time of Disposition: 19:36
[2019-10-15] MEDS ORDERED: ONDANSETRON 4 MG/2 ML INJ IV PRN (20:31)
[2019-10-15] MEDS ORDERED: ALBUTEROL 2.5 MG/3 ML NEBU IH PRN (20:31)
[2019-10-15] MEDS ORDERED: ACETAMINOPHEN 325 MG TAB PO PRN (20:31)
[2019-10-15] MEDS ORDERED: SODIUM CHLORIDE 0.9% 1000 ML 1,000 ML IV SCH (20:45)
--- NOTE | 2019-10-15 22:04 | History and Physical Report ---
History of Present Illness Date of examination: 10/15/19 Date of admission: 10/15/2019 Chief complaint: Shortness of breath History of present illness: 69-year-old -[place] female with history of arthritis, CHF, chronic respiratory failure on home O2, and seizure who presents to [facility] ED with complaints of progressively worsening shortness of breath. Patient's 2 sons and daughter present at bedside and have assisted in providing history. According to patient she has been experiencing dyspnea with exertion and mild shortness of breath for the past month. However over the past 2 days her shortness of breath has worsened. She is unable to walk more than a few steps without becoming severely shortness of breath despite being on home O2. Patient states she has increased work of breathing with occasional use of accessory muscles. She also complains of chronic bilateral lower extremity edema despite taking p.o. diuretic (torsemide). When questioned about fluid restriction patient states that her average daily fluid consumption is approximately 1 L to 1-1/2 L. Admits nonproductive cough, dyspnea with exertion, and mild shortness of breath at rest. Denies medical noncompliance, PND, orthopnea, fever, productive cough, or hemoptysis. Upon arrival to our facility patient was found to be saturation of mid 80s on 2 L nasal cannula. She was placed on nonrebreather mask with improvement of saturation to 98%. Will admit for further evaluation and treatment. Past History Past Medical History: arthritis, heart failure, seizures, other (Chronic respiratory failure with 2 L supplemental O2 continuously) Past Surgical History: total knee replacement (Bilateral) Social history: lives with family Family history: no significant family history Medications and Allergies Allergies Allergy/AdvReac Type Severity Reaction Status Date / Time lisinopril Allergy Angioedema Verified 08/13/13 15:50 Home Medications Medication Instructions Recorded Confirmed Last Taken Type Cholecalciferol (Vitamin D3) 5,000 unit PO QDAY 10/15/19 10/15/19 Unknown History [Vitamin D3 5,000 UNIT] Cyproheptadine [Periactin] 4 mg PO BID 10/15/19 10/15/19 Unknown History Gluc/Chondr-MSM 7/C/Juan F/[place] 1 tab PO BID 10/15/19 10/15/19 Unknown History [Eql Glucosam-Chondro Complx Tb] Magnesium Oxide [Mag-Ox] 400 mg PO BID 10/15/19 10/15/19 Unknown History Omeprazole 20 mg PO BID 10/15/19 10/15/19 Unknown History Potassium Chloride 10 meq PO QDAY 10/15/19 10/15/19 Unknown History Torsemide [Demadex] 5 mg PO QDAY 10/15/19 10/15/19 Unknown History carvediloL [Coreg] 3.125 mg PO BID 10/15/19 10/15/19 Unknown History levETIRAcetam [Keppra TAB] 750 mg PO QDAY 10/15/19 10/15/19 Unknown History Active Meds: Active Medications Acetaminophen (Tylenol) 650 mg PO Q4H PRN PRN Reason: Pain MILD(1-3)/Fever >100.5/HURTADO Albuterol (Proventil) 2.5 mg IH Q3HRT PRN PRN Reason: Shortness Of Breath Carvedilol (Coreg) 3.125 mg PO BID BARB Cholecalciferol (Vitamin D3) 5,000 unit PO QDAY BARB Docusate Sodium (Colace) 100 mg PO BID BARB Enoxaparin Sodium (Enoxaparin) 90 mg 1 mg/kg (90 mg) SUB-Q Q12HR BARB Furosemide (Lasix) 40 mg IV BID@0600,1800 BARB Sodium Chloride (Nacl 0.9% 1000 Ml) 1,000 mls @ 40 mls/hr IV DIRECT BARB Stop: 10/16/19 11:00 Levetiracetam (Keppra) 750 mg PO QDAY BARB Ondansetron HCl (Zofran) 4 mg IV Q8H PRN PRN Reason: Nausea And Vomiting Pantoprazole Sodium (Protonix) 20 mg PO BID BARB Potassium Chloride (K-Dur) 10 meq PO QDAY BARB Sodium Chloride (Sodium Chloride Flush Syringe 10 Ml) 10 ml IV BID BARB Sodium Chloride (Sodium Chloride Flush Syringe 10 Ml) 10 ml IV PRN PRN PRN Reason: LINE FLUSH Review of Systems All systems: negative Cardiovascular: shortness of breath, dyspnea on exertion, leg edema, decreased exercise tolerance Respiratory: shortness of breath, dyspnea on exertion, home oxygen Exam - Physical Exam Narrative exam: Physical exam General appearance: Present: No acute distress, alert and oriented 3, pleasant, older adult female - EENT Eyes: Present: PERRL, EOM intact ENT: hearing intact, missing teeth - Neck Neck: Present: supple, normal ROM - Respiratory Respiratory effort: Slightly labored, on supplemental oxygen Respiratory: Bibasilar crackles, diminished throughout - Cardiovascular Heart rate: 69 (bpm) Rhythm: Sinus rhythm Heart Sounds: Present: S1 & S2. Absent: rub, click - Extremities Extremities: no ischemia, pulses intact, bilateral lower extremity trace edema - Peripheral Assessment Peripheral Pulses: within normal limits - Abdominal General gastrointestinal: soft, non-tender, normal bowel sounds - Integumentary Integumentary: Present: warm, dry - Musculoskeletal Musculoskeletal: Able to move all extremities, generalized weakness -Neurological Neurological: CN II-XII intact - Psychiatric Psychiatric: Appropriate for situation ,cooperative - Constitutional Vitals: Temp Pulse Resp BP Pulse Ox 98.3 F 69 18 143/83 94 10/15/19 16:50 10/15/19 20:45 10/15/19 20:45 10/15/19 20:45 10/15/19 20:45 Results - Labs CBC & Chem 7: 10/15/19 17:49 10/15/19 17:49 Labs: Laboratory Last Values WBC 3.7 K/mm3 (4.5-11.0) L 10/15/19 17:49 RBC 3.48 M/mm3 (3.65-5.03) L 10/15/19 17:49 Hgb 11.3 gm/dl (10.1-14.3) 10/15/19 17:49 Hct 34.4 % (30.3-42.9) 10/15/19 17:49 MCV 99 fl (79-97) H 10/15/19 17:49 MCH 32 pg (28-32) 10/15/19 17:49 MCHC 33 % (30-34) 10/15/19 17:49 RDW 17.4 % (13.2-15.2) H 10/15/19 17:49 Plt Count 139 K/mm3 (140-440) L 10/15/19 17:49 Lymph % (Auto) 27.0 % (13.4-35.0) 10/15/19 17:49 [place] % (Auto) 14.1 % (0.0-7.3) H 10/15/19 17:49 Eos % (Auto) 1.1 % (0.0-4.3) 10/15/19 17:49 Baso % (Auto) 0.9 % (0.0-1.8) 10/15/19 17:49 Lymph # 1.0 K/mm3 (1.2-5.4) L 10/15/19 17:49 [place] # 0.5 K/mm3 (0.0-0.8) 10/15/19 17:49 Eos # 0.0 K/mm3 (0.0-0.4) 10/15/19 17:49 Baso # 0.0 K/mm3 (0.0-0.1) 10/15/19 17:49 Seg Neutrophils % 56.9 % (40.0-70.0) 10/15/19 17:49 Seg Neutrophils # 2.1 K/mm3 (1.8-7.7) 10/15/19 17:49 D-Dimer 748.36 ng/mlDDU (0-234) H 10/15/19 17:49 Sodium 135 mmol/L (137-145) L 10/15/19 17:49 Potassium 4.0 mmol/L (3.6-5.0) 10/15/19 17:49 Chloride 94.9 mmol/L (98-107) L 10/15/19 17:49 Carbon Dioxide 23 mmol/L (22-30) 10/15/19 17:49 Anion Gap 21 mmol/L 10/15/19 17:49 BUN 23 mg/dL (7-17) H 10/15/19 17:49 Creatinine 1.6 mg/dL (0.7-1.2) H 10/15/19 17:49 Estimated GFR 38 ml/min 10/15/19 17:49 BUN/Creatinine Ratio 14 % 10/15/19 17:49 Glucose 86 mg/dL (65-100) 10/15/19 17:49 Calcium 9.5 mg/dL (8.4-10.2) 10/15/19 17:49 Total Bilirubin 1.30 mg/dL (0.1-1.2) H 10/15/19 17:49 AST 21 units/L (5-40) 10/15/19 17:49 ALT 9 units/L (7-56) 10/15/19 17:49 Alkaline Phosphatase 112 units/L (35-129) 10/15/19 17:49 Troponin T 0.020 ng/mL (0.00-0.029) 10/15/19 17:49 NT-Pro-B Natriuret Pep 6707 pg/mL (0-900) H 10/15/19 18:09 Total Protein 6.6 g/dL (6.3-8.2) 10/15/19 17:49 Albumin 3.6 g/dL (3.9-5) L 10/15/19 17:49 Albumin/Globulin Ratio 1.2 % 10/15/19 17:49 - Imaging and Cardiology Imaging and Cardiology: CXR: Impressions: cardiomegaly with bilateral cardiopulmonary edema pleural effusions Assessment and Plan Assessment and plan: 69-year-old -[place] female with history of arthritis, CHF, chronic respiratory failure on home O2, and seizure who presents to [facility] ED with c omplaints of progressively worsening shortness of breath. Acute Exacerbation CHF -BNP elevated at 6707 -Troponin neg x1, will repeat -CXR shows cardiomegaly with bilateral cardiopulmonary edema pleural effusions -Patient has bilateral lower extremity trace edema -Start IV Lasix twice a day -Continue BB Acute on chronic hypoxic respiratory failure -Baseline home oxygen requirements of 2L -Desaturates to low to mid 80s on baseline requirements -Currently on nonrebreather mask -Monitor saturations -Continue supplemental oxygen wean as tolerated -Albuterol PRN RADHIKA -Cr on admission 1.6 -??CKD with GFR 38 -Gentle Hydrate with IVF -Avoid nephrotoxic agents -Renal dose all meds -Nephrology consulted R/O PE -Elevated d-dimer at 748.36 -VQ scan pending -Will start on Lovenox 1 mg/kg twice daily pending VQ scan; VQ scan negative change to DVT prophylaxis dose Hx Seizure -Continue Keppra DVT PPX -On Lovenox Advance Directives: No VTE prophylaxis?: Chemical Plan of care discussed with patient/family: Yes
--- NOTE | 2019-10-15 22:35 | Ultrasound Report ---
ULTRASOUND RENAL INDICATION: Acute renal failure.. COMPARISON: CT abdomen and pelvis without contrast from 12/20/2018.. FINDINGS: RIGHT KIDNEY: Size: 9.1 x 4.0 cm. Echogenicity: Normal. Cortical thickness: Mild thinning, 1.1 cm. Hydronephrosis: None. Cyst or mass: None. Stones: None. LEFT KIDNEY: Size: 10.0 x 4.5 cm. Echogenicity: Normal. Cortical thickness: Normal, 1.5 cm. Hydronephrosis: None. Cyst or mass: None. Stones: None. Urinary Bladder: No significant abnormality. Free Fluid: None. Additional Findings: None. IMPRESSION 1. No acute sonographic abnormality of the kidneys. Signer Name: Elijah Ross MD Signed: 10/15/2019 10:30 PM Workstation Name: [id number]
[2019-10-16 02:53] LABS: Bacteria,Urine 2+ /HPF (Negative); Bilirubin,Urine NEG (Negative); Blood,Urine NEG (Negative); Color,Urine Yellow (Yellow); Protein,Urine <15 mg/dL mg/dL (Negative); Urobilinogen,Urine < 2.0 mg/dL (<2.0)
[2019-10-16 03:05] LABS: Creatinine,Urine 20.6 mg/dL (0.1-20.0)
[2019-10-16] MEDS: carvediloL 3.125 MG TAB PO SCH ×3 (05:15→21:54)
[2019-10-16] MEDS: ENOXAPARIN 100 MG/1 ML INJ SUB-Q SCH ×3 (05:15→21:54)
[2019-10-16] MEDS: PANTOPRAZOLE 20 MG TAB PO SCH ×3 (05:15→21:54)
[2019-10-16] MEDS: DOCUSATE SODIUM 100 MG CAP PO SCH ×3 (05:15→21:55)
[2019-10-16] MEDS: FUROSEMIDE 40 MG/4 ML INJ IV SCH ×2 (06:08→18:04)
[2019-10-16 06:18] LABS: Hematocrit 33.8 % (30.3-42.9); Mean Corpuscular HGB Conc 33 % (30-34); Mean Corpuscular Volume 98 fl (79-97); Platelet Count 131 K/mm3 (140-440); Red Blood Count 3.45 M/mm3 (3.65-5.03); Red Cell Distribution Width 17.6 % (13.2-15.2)
[2019-10-16 06:25] LABS: Calcium 9.4 mg/dL (8.4-10.2)
[2019-10-16 07:04] LABS: Basophils % (Manual) 0 % (0.0-1.8); Monocytes % (Manual) 0 % (0.0-7.3); Total Cells Counted 100
[2019-10-16 07:05] LABS: Ovalocytes Rare
[2019-10-16 07:06] LABS: Target Cells Rare
[2019-10-16 07:07] LABS: Platelet Estimate Consistent w Auto; Schistocytes Rare
--- NOTE | 2019-10-16 08:19 | Nuclear Medicine Report ---
NUCLEAR MEDICINE VENTILATION/PERFUSION LUNG SCAN INDICATION / CLINICAL INFORMATION: ELEVATED D-DIMER. Hypoxia TECHNIQUE: 19.1 mCi of Xe-133 were given by inhalation. 5.0 mCi of Tc-99m MAA were given by IV. COMPARISON: Chest radiograph dated 10/15/2019 at 1751 hours. FINDINGS: VENTILATION: No significant ventilation defects. Moderate air trapping particularly in the left lung is demonstrated on the equilibrium images. PERFUSION: No mismatched segmental perfusion defects. There is mild blunting of the right costophreni c angle consistent with a small right pleural effusion. ADDITIONAL FINDINGS: None. IMPRESSION: Low probability for pulmonary embolism. Signer Name: Ruben Jones Jr, MD Signed: 10/16/2019 8:15 AM Workstation Name: [id number]
[2019-10-16] MEDS: CHOLECALCIFEROL (VIT D3) 5,000 UNIT TAB PO SCH (10:53)
[2019-10-16] MEDS: levETIRAcetam 500 MG TAB PO SCH (10:54)
[2019-10-16] MEDS: POTASSIUM CHLORIDE ER 10 MEQ TAB PO SCH (10:54)
--- NOTE | 2019-10-16 11:24 | Progress Note ---
Assessment and Plan Assessment and plan: --Acute on chronic diastolic congestive heart failure; Continue anti-failure medication, cardiology evaluation Input output monitoring, supportive care --Acute on chronic hypoxic respiratory failure; Requiring nonrebreather mask Titrate O2 sats to more than 90% Nebulizers --Acute kidney injury; vasomotor nephropathy IV fluids, encourage plenty of oral fluids Monitor renal function, avoid nephrotoxins Nephrology following --Elevated D-dimers; VQ low probability for PE Check lower extremity venous Doppler. To rule out DVT --History of seizures; seizure precautions Antiepileptic medication Keppra --DVT prophylaxis; Lovenox --Full CODE STATUS Monitor closely and adjust management as needed History Interval history: Patient seen and examined at bedside Patient's chart, overnight events, medication list reviewed Patient continues to have mild shortness of breath and cough Alert awake oriented x3, Mild distress Blood pressures are uncontrolled Vital signs noted Hospitalist Physical - Constitutional Vitals: Temp Pulse Resp BP Pulse Ox 98.2 F 76 18 89/54 97 10/16/19 09:37 10/16/19 10:53 10/16/19 09:37 10/16/19 10:53 10/16/19 09:37 General appearance: Present: mild distress, well-nourished, obese - EENT Eyes: Present: PERRL, EOM intact - Neck Neck: Present: supple, normal ROM - Respiratory Respiratory effort: normal Respiratory: bilateral: diminished, rhonchi, negative: rales, wheezing - Cardiovascular Rhythm: regular Heart Sounds: Present: S1 & S2 - Extremities Extremities: no ischemia, No edema - Abdominal General gastrointestinal: soft, non-tender, non-distended, normal bowel sounds - Integumentary Integumentary: Present: clear, warm - Psychiatric Psychiatric: appropriate mood/affect, cooperative - Neurologic Neurologic: CNII-XII intact, moves all extremities MAULIK score - Maulik Score Age > 65: (1) Yes Aspirin use within the Past 7 Days: (0) No Results - Labs CBC & Chem 7: 10/16/19 05:15 10/16/19 05:15 Labs: Laboratory Last Values WBC 4.3 K/mm3 (4.5-11.0) L 10/16/19 05:15 RBC 3.45 M/mm3 (3.65-5.03) L 10/16/19 05:15 Hgb 11.0 gm/dl (10.1-14.3) 10/16/19 05:15 Hct 33.8 % (30.3-42.9) 10/16/19 05:15 MCV 98 fl (79-97) H 10/16/19 05:15 MCH 32 pg (28-32) 10/16/19 05:15 MCHC 33 % (30-34) 10/16/19 05:15 RDW 17.6 % (13.2-15.2) H 10/16/19 05:15 Plt Count 131 K/mm3 (140-440) L 10/16/19 05:15 Lymph % (Auto) [facility] [facility] 10/16/19 05:15 [place]erry % (Auto) [facility] 10/16/19 05:15 Eos % (Auto) [facility] 10/16/19 05:15 Baso % (Auto) [facility] 10/16/19 05:15 Lymph # [facility] 10/16/19 05:15 [place] # [facility] 10/16/19 05:15 Eos # [facility] 10/16/19 05:15 Baso # [facility] 10/16/19 05:15 Add Manual Diff Complete 10/16/19 05:15 Total Counted 100 10/16/19 05:15 Seg Neutrophils % [facility] 10/16/19 05:15 Seg Neuts % (Manual) 60.0 % (40.0-70.0) 10/16/19 05:15 Band Neutrophils % 0 % 10/16/19 05:15 Lymphocytes % (Manual) 39.0 % (13.4-35.0) H 10/16/19 05:15 Reactive Lymphs % (Man) 0 % 10/16/19 05:15 Monocytes % (Manual) 0 % (0.0-7.3) 10/16/19 05:15 Eosinophils % (Manual) 1.0 % (0.0-4.3) 10/16/19 05:15 Basophils % (Manual) 0 % (0.0-1.8) 10/16/19 05:15 Metamyelocytes % 0 % 10/16/19 05:15 Myelocytes % 0 % 10/16/19 05:15 Promyelocytes % 0 % 10/16/19 05:15 Blast Cells % 0 % 10/16/19 05:15 Nucleated RBC % Not Reportable 10/16/19 05:15 Seg Neutrophils # [facility] 10/16/19 05:15 Seg Neutrophils # Man 2.6 K/mm3 (1.8-7.7) 10/16/19 05:15 Band Neutrophils # 0.0 K/mm3 10/16/19 05:15 Lymphocytes # (Manual) 1.7 K/mm3 (1.2-5.4) 10/16/19 05:15 Abs React Lymphs (Man) 0.0 K/mm3 10/16/19 05:15 Monocytes # (Manual) 0.0 K/mm3 (0.0-0.8) 10/16/19 05:15 Eosinophils # (Manual) 0.0 K/mm3 (0.0-0.4) 10/16/19 05:15 Basophils # (Manual) 0.0 K/mm3 (0.0-0.1) 10/16/19 05:15 Metamyelocytes # 0.0 K/mm3 10/16/19 05:15 Myelocytes # 0.0 K/mm3 10/16/19 05:15 Promyelocytes # 0.0 K/mm3 10/16/19 05:15 Blast Cells # 0.0 K/mm3 10/16/19 05:15 WBC Morphology Not Reportable 10/16/19 05:15 Hypersegmented Neuts Not Reportable 10/16/19 05:15 Hyposegmented Neuts Not Reportable 10/16/19 05:15 Hypogranular Neuts Not Reportable 10/16/19 05:15 Smudge Cells Not Reportable 10/16/19 05:15 Toxic Granulation Not Reportable 10/16/19 05:15 Toxic Vacuolation Not Reportable 10/16/19 05:15 Dohle Bodies Not Reportable 10/16/19 05:15 Pelger-Huet Anomaly Not Reportable 10/16/19 05:15 Carley Rods Not Reportable 10/16/19 05:15 Platelet Estimate Consistent w auto 10/16/19 05:15 Clumped Platelets Not Reportable 10/16/19 05:15 Plt Clumps, EDTA Not Reportable 10/16/19 05:15 Large Platelets Not Reportable 10/16/19 05:15 Giant Platelets Not Reportable 10/16/19 05:15 Platelet Satelliting Not Reportable 10/16/19 05:15 Plt Morphology Comment Not Reportable 10/16/19 05:15 RBC Morphology Not Reportable 10/16/19 05:15 Dimorphic RBCs Not Reportable 10/16/19 05:15 Polychromasia Not Reportable 10/16/19 05:15 Hypochromasia Not Reportable 10/16/19 05:15 Poikilocytosis Not Reportable 10/16/19 05:15 Anisocytosis Not Reportable 10/16/19 05:15 Microcytosis Not Reportable 10/16/19 05:15 Macrocytosis Not Reportable 10/16/19 05:15 Spherocytes Not Reportable 10/16/19 05:15 Pappenheimer Bodies Not Reportable 10/16/19 05:15 Sickle Cells Not Reportable 10/16/19 05:15 Target Cells Rare 10/16/19 05:15 Tear Drop Cells Not Reportable 10/16/19 05:15 Ovalocytes Rare 10/16/19 05:15 Helmet Cells Not Reportable 10/16/19 05:15 Sutherland-Collins Bodies Not Reportable 10/16/19 05:15 [place] Rings Not Reportable 10/16/19 05:15 [place] Cells Not Reportable 10/16/19 05:15 Bite Cells Not Reportable 10/16/19 05:15 Crenated Cell Not Reportable 10/16/19 05:15 Elliptocytes Rare 10/16/19 05:15 Acanthocytes (Spur) Not Reportable 10/16/19 05:15 Rouleaux Not Reportable 10/16/19 05:15 Hemoglobin C Crystals Not Reportable 10/16/19 05:15 Schistocytes Rare 10/16/19 05:15 Malaria parasites Not Reportable 10/16/19 05:15 Han Bodies Not Reportable 10/16/19 05:15 Hem Pathologist Commnt No 10/16/19 05:15 D-Dimer 748.36 ng/mlDDU (0-234) H 10/15/19 17:49 Sodium 136 mmol/L (137-145) L 10/16/19 05:15 Potassium 3.9 mmol/L (3.6-5.0) 10/16/19 05:15 Chloride 95.7 mmol/L (98-107) L 10/16/19 05:15 Carbon Dioxide 23 mmol/L (22-30) 10/16/19 05:15 Anion Gap 21 mmol/L 10/16/19 05:15 BUN 24 mg/dL (7-17) H 10/16/19 05:15 Creatinine 1.6 mg/dL (0.7-1.2) H 10/16/19 05:15 Estimated GFR 38 ml/min 10/16/19 05:15 BUN/Creatinine Ratio 15 % 10/16/19 05:15 Glucose 91 mg/dL (65-100) 10/16/19 05:15 Calcium 9.4 mg/dL (8.4-10.2) 10/16/19 05:15 Total Bilirubin 1.30 mg/dL (0.1-1.2) H 10/15/19 17:49 AST 21 units/L (5-40) 10/15/19 17:49 ALT 9 units/L (7-56) 10/15/19 17:49 Alkaline Phosphatase 112 units/L (35-129) 10/15/19 17:49 Troponin T 0.021 ng/mL (0.00-0.029) 10/15/19 22:37 NT-Pro-B Natriuret Pep 6707 pg/mL (0-900) H 10/15/19 18:09 Total Protein 6.6 g/dL (6.3-8.2) 10/15/19 17:49 Albumin 3.6 g/dL (3.9-5) L 10/15/19 17:49 Albumin/Globulin Ratio 1.2 % 10/15/19 17:49 Urine Color Yellow (Yellow) 10/16/19 01:55 Urine Turbidity Clear (Clear) 10/16/19 01:55 Urine pH 5.0 (5.0-7.0) 10/16/19 01:55 Ur Specific [place] 1.004 (1.003-1.030) 10/16/19 01:55 Urine Protein <15 mg/dl mg/dL (Negative) 10/16/19 01:55 Urine Glucose (UA) Neg mg/dL (Negative) 10/16/19 01:55 Urine Ketones Neg mg/dL (Negative) 10/16/19 01:55 Urine Blood Neg (Negative) 10/16/19 01:55 Urine Nitrite Neg (Negative) 10/16/19 01:55 Urine Bilirubin Neg (Negative) 10/16/19 01:55 Urine Urobilinogen < 2.0 mg/dL (<2.0) 10/16/19 01:55 Ur Leukocyte Esterase Tr (Negative) 10/16/19 01:55 Urine WBC (Auto) 1.0 /HPF (0.0-6.0) 10/16/19 01:55 Urine RBC (Auto) 1.0 /HPF (0.0-6.0) 10/16/19 01:55 U Epithel Cells (Auto) 1.0 /HPF (0-13.0) 10/16/19 01:55 Urine Bacteria (Auto) 2+ /HPF (Negative) 10/16/19 01:55 Urine Creatinine 20.6 mg/dL (0.1-20.0) H 10/16/19 01:55 Urine Sodium 92 mmol/L 10/16/19 01:55 Active Medications - Current Medications Current Medications: Generic Name Dose Route Start Last Admin Trade Name Freq PRN Reason Stop Dose Admin Acetaminophen 650 mg 10/15/19 20:31 Tylenol PO Q4H PRN Pain MILD(1-3)/Fever >100.5/HURTADO Albuterol 2.5 mg 10/15/19 20:31 Proventil IH Q3HRT PRN Shortness Of Breath Carvedilol 3.125 mg 10/15/19 22:00 10/16/19 10:53 Coreg PO Not Given BID [facility] Cholecalciferol 5,000 unit 10/16/19 10:00 10/16/19 10:53 Vitamin D3 PO 5,000 unit QDAY [facility] Administration Docusate Sodium 100 mg 10/15/19 22:00 10/16/19 10:54 Colace PO 100 mg BID BARB Administration Enoxaparin Sodium 90 mg 10/15/19 22:00 10/16/19 10:53 Enoxaparin 1 mg/kg (90 mg) 90 mg SUB-Q Administration Q12HR [facility] Furosemide 40 mg 10/16/19 06:00 10/16/19 06:08 Lasix IV 40 mg BID@0600,1800 BARB Administration Levetiracetam 750 mg 10/16/19 10:00 10/16/19 10:54 Keppra PO 750 mg QDAY BARB Administration Ondansetron HCl 4 mg 10/15/19 20:31 Zofran IV Q8H PRN Nausea And Vomiting Pantoprazole Sodium 20 mg 10/15/19 22:00 10/16/19 10:54 Protonix PO 20 mg BID BARB Administration Pneumococcal Polyvalent Vaccine 0.5 ml 10/16/19 12:05 Pneumovax 23 IM 10/16/19 12:06 .ONCE ONE Potassium Chloride 10 meq 10/16/19 10:00 10/16/19 10:54 K-Dur PO 10 meq QDAY BARB Administration Sodium Chloride 10 ml 10/15/19 22:00 10/16/19 10:55 Sodium Chloride Flush Syringe 10 Ml IV 10 ml BID BARB Administration Sodium Chloride 10 ml 10/15/19 20:31 Sodium Chloride Flush Syringe 10 Ml IV PRN PRN LINE FLUSH
--- NOTE | 2019-10-16 12:03 | Consultation ---
History of Present Illness - Reason for Consult Consult date: 10/16/19 chronic renal failure - History of Present Illness This is a 69-year-old -[place] woman with history of arthritis, CHF, chronic respiratory failure on home O2, and seizure who presents to [facility] with complaints of worsening shortness of breath. Patient's daughter present at bedside and assisted in providing history. Symptoms have worsened over past month. Has been compliant with medications and diet/fluid intake. She is known to [facility] and has been following with Dr. Marques. [facility] creatinine was 1.67 at her visit in fall 2018. She was referred to [facility] at that time for CKD stage 4, with creatinine clearance noted to be 22 on 24 hour collection. Patient currently notes feeling better, with improved breathing. No chest pain, abdominal pain, abnormal appetite, abnormal urination, PND, orthopnea, fever, productive cough, or hemoptysis. Past History Past Medical History: arthritis, heart failure, seizures, other (Chronic respiratory failure with 2 L supplemental O2 continuously) Past Surgical History: total knee replacement (Bilateral) Social history: lives with family Family history: no significant family history Medications and Allergies Allergies Allergy/AdvReac Type Severity Reaction Status Date / Time lisinopril Allergy Angioedema Verified 08/13/13 15:50 Home Medications Medication Instructions Recorded Confirmed Last Taken Type Cholecalciferol (Vitamin D3) 5,000 unit PO QDAY 10/15/19 10/15/19 Unknown History [Vitamin D3 5,000 UNIT] Cyproheptadine [Periactin] 4 mg PO BID 10/15/19 10/15/19 Unknown History Gluc/Chondr-MSM 7/C/Juan F/O'Brien 1 tab PO BID 10/15/19 10/15/19 Unknown History [Eql Glucosam-Chondro Complx Tb] Magnesium Oxide [Mag-Ox] 400 mg PO BID 10/15/19 10/15/19 Unknown History Omeprazole 20 mg PO BID 10/15/19 10/15/19 Unknown History Potassium Chloride 10 meq PO QDAY 10/15/19 10/15/19 Unknown History Torsemide [Demadex] 5 mg PO QDAY 10/15/19 10/15/19 Unknown History carvediloL [Coreg] 3.125 mg PO BID 10/15/19 10/15/19 Unknown History levETIRAcetam [Keppra TAB] 750 mg PO QDAY 10/15/19 10/15/19 Unknown History Active Meds: Active Medications Acetaminophen (Tylenol) 650 mg PO Q4H PRN PRN Reason: Pain MILD(1-3)/Fever >100.5/HURTADO Last Admin: 10/16/19 11:50 Dose: 650 mg Documented by: Albuterol (Proventil) 2.5 mg IH Q3HRT PRN PRN Reason: Shortness Of Breath Carvedilol (Coreg) 3.125 mg PO BID [facility] Last Admin: 10/16/19 10:53 Dose: Not Given Documented by: Cholecalciferol (Vitamin D3) 5,000 unit PO QDAY [facility] Last Admin: 10/16/19 10:53 Dose: 5,000 unit Documented by: Docusate Sodium (Colace) 100 mg PO BID [facility] Last Admin: 10/16/19 10:54 Dose: 100 mg Documented by: Enoxaparin Sodium (Enoxaparin) 90 mg 1 mg/kg (90 mg) SUB-Q Q12HR [facility] Last Admin: 10/16/19 10:53 Dose: 90 mg Documented by: Furosemide (Lasix) 40 mg IV BID@0600,1800 [facility] Last Admin: 10/16/19 06:08 Dose: 40 mg Documented by: Levetiracetam (Keppra) 750 mg PO QDAY [facility] Last Admin: 10/16/19 10:54 Dose: 750 mg Documented by: Ondansetron HCl (Zofran) 4 mg IV Q8H PRN PRN Reason: Nausea And Vomiting Pantoprazole Sodium (Protonix) 20 mg PO BID [facility] Last Admin: 10/16/19 10:54 Dose: 20 mg Documented by: Pneumococcal Polyvalent Vaccine (Pneumovax 23) 0.5 ml IM .ONCE ONE Stop: 10/16/19 12:06 Last Admin: 10/16/19 11:51 Dose: 0.5 ml Documented by: Potassium Chloride (K-Dur) 10 meq PO QDAY [facility] Last Admin: 10/16/19 10:54 Dose: 10 meq Documented by: Sodium Chloride (Sodium Chloride Flush Syringe 10 Ml) 10 ml IV BID [facility] Last Admin: 10/16/19 10:55 Dose: 10 ml Documented by: Sodium Chloride (Sodium Chloride Flush Syringe 10 Ml) 10 ml IV PRN PRN PRN Reason: LINE FLUSH Review of Systems All systems: negative (as per HPI) Exam - Vital Signs Vital signs: Vital Signs Temp Pulse Resp BP Pulse Ox 98.3 F 72 24 119/76 100 10/15/19 16:50 10/15/19 16:50 10/15/19 16:50 10/15/19 16:50 10/15/19 16:50 - Physical Exam Narrative exam: Constitutional: no acute distress, obese Head: NC/AT Neck: supple Lungs: clear to auscultation CV: RRR, no M/R/G Abdomen: soft, non-tender, bowel sounds present Back: nontender Extremities: trace edema, pulses WNL Skin: intact Neuro: no focal deficits, alert and oriented x4 Results - Lab Results 10/16/19 05:15 10/16/19 05:15 Most recent lab results Calcium 9.4 mg/dL (8.4-10.2) 10/16/19 05:15 Urine Creatinine 20.6 mg/dL (0.1-20.0) H 10/16/19 01:55 Urine Sodium 92 mmol/L 10/16/19 01:55 Assessment and Plan This is a 69 year old woman with known CKD who presents with shortness of breath # CKD 3: appears to be at baseline renal function with creatinine 1.6 and eGFR 38. Has outpatient appointment on 10/28/2019 - daily labs - renally dose meds - avoid nephrotoxins: would hold PPI if able given AIN risk - renal diet - will check urine studies while inpatient # Anemia: last hemoglobin 11.3, at goal for CKD # HTN/Volume: currently on Lasix 40mg IV BID, ok to continue from renal perspective. BP is soft, may need to hold home meds
[2019-10-16] MEDS ORDERED: PNEUMOCOCCAL 23 Valent 0.5 ML VIAL IM ONE (12:05)
--- NOTE | 2019-10-16 14:21 | Vascular Lab Report ---
DUPLEX DOPPLER LOWER EXTREMITY VEINS, BILATERAL INDICATION: Elevated D-dimers, evaluate for DVT. TECHNIQUE: Duplex doppler imaging was performed through the veins of both lower extremities using venous shamika carlos and other maneuvers. COMPARISON: No relevant prior imaging study available. FINDINGS: Right Common femoral vein: Negative. Right Superficial femoral vein: Negative. Right Popliteal vein: Negative. Right Calf veins: Negative. Left Common femoral vein: Negative. Left Superficial femoral vein: Negative. Left Popliteal vein: Negative. Left Calf veins: Negative. Additional findings: There is a small popliteal fossa cyst on the right measuring 3.4 cm in maximal d imension.. IMPRESSION: 1. No sonographic evidence for DVT in either lower extremity. 2. Small right-sided popliteal fossa cyst. Signer Name: Jovani Huggins MD Signed: 10/16/2019 2:16 PM Workstation Name: [id number]
[2019-10-17] MEDS: FUROSEMIDE 40 MG/4 ML INJ IV SCH (05:27)
[2019-10-17 06:33] LABS: Creatinine,Urine 36.4 mg/dL (0.1-20.0); Protein/Creatinine Ratio,Urine 0.3
[2019-10-17 06:43] LABS: Calcium 9.1 mg/dL (8.4-10.2)
--- NOTE | 2019-10-17 08:24 | Progress Note ---
Assessment and Plan Assessment and plan: --Acute on chronic diastolic congestive heart failure; Continue anti-failure medication, cardiology evaluation Input output monitoring, supportive care --Acute on chronic hypoxic respiratory failure; Requiring nonrebreather mask Titrate O2 sats to more than 90% Nebulizers --Acute kidney injury; vasomotor nephropathy IV fluids, encourage plenty of oral fluids Monitor renal function, avoid nephrotoxins Nephrology following --Elevated D-dimers; VQ low probability for PE Check lower extremity venous Doppler. To rule out DVT --History of seizures; seizure precautions Antiepileptic medication Keppra --DVT prophylaxis; Lovenox --Full CODE STATUS Monitor closely and adjust management as needed Tests done so farRenal ultrasound; no acute abnormalities VQ scan; low probability for PE Lower extremity venous Doppler; negative for DVT Chest x-ray; cardiomegaly, bilateral cardiopulmonary edema pleural effusions Hospitalist Physical - Constitutional Vitals: Temp Pulse Resp BP Pulse Ox 97.4 F L 74 16 104/69 100 10/17/19 04:23 10/17/19 04:23 10/17/19 04:23 10/17/19 04:23 10/17/19 04:23 General appearance: Present: mild distress, well-nourished, obese MAULIK score - Maulik Score Age > 65: (1) Yes Aspirin use within the Past 7 Days: (0) No Results - Labs CBC & Chem 7: 10/16/19 05:15 10/17/19 05:52 Labs: Laboratory Last Values WBC 4.3 K/mm3 (4.5-11.0) L 10/16/19 05:15 RBC 3.45 M/mm3 (3.65-5.03) L 10/16/19 05:15 Hgb 11.0 gm/dl (10.1-14.3) 10/16/19 05:15 Hct 33.8 % (30.3-42.9) 10/16/19 05:15 MCV 98 fl (79-97) H 10/16/19 05:15 MCH 32 pg (28-32) 10/16/19 05:15 MCHC 33 % (30-34) 10/16/19 05:15 RDW 17.6 % (13.2-15.2) H 10/16/19 05:15 Plt Count 131 K/mm3 (140-440) L 10/16/19 05:15 Lymph % (Auto) [employer] 10/16/19 05:15 [place] % (Auto) [employer] 10/16/19 05:15 Eos % (Auto) [employer] 10/16/19 05:15 Baso % (Auto) [employer] 10/16/19 05:15 Lymph # [employer] 10/16/19 05:15 [place] # [employer] 10/16/19 05:15 Eos # [employer] 10/16/19 05:15 Baso # [employer] 10/16/19 05:15 Add Manual Diff Complete 10/16/19 05:15 Total Counted 100 10/16/19 05:15 Seg Neutrophils % [employer] 10/16/19 05:15 Seg Neuts % (Manual) 60.0 % (40.0-70.0) 10/16/19 05:15 Band Neutrophils % 0 % 10/16/19 05:15 Lymphocytes % (Manual) 39.0 % (13.4-35.0) H 10/16/19 05:15 Reactive Lymphs % (Man) 0 % 10/16/19 05:15 Monocytes % (Manual) 0 % (0.0-7.3) 10/16/19 05:15 Eosinophils % (Manual) 1.0 % (0.0-4.3) 10/16/19 05:15 Basophils % (Manual) 0 % (0.0-1.8) 10/16/19 05:15 Metamyelocytes % 0 % 10/16/19 05:15 Myelocytes % 0 % 10/16/19 05:15 Promyelocytes % 0 % 10/16/19 05:15 Blast Cells % 0 % 10/16/19 05:15 Nucleated RBC % Not Reportable 10/16/19 05:15 Seg Neutrophils # [employer] 10/16/19 05:15 Seg Neutrophils # Man 2.6 K/mm3 (1.8-7.7) 10/16/19 05:15 Band Neutrophils # 0.0 K/mm3 10/16/19 05:15 Lymphocytes # (Manual) 1.7 K/mm3 (1.2-5.4) 10/16/19 05:15 Abs React Lymphs (Man) 0.0 K/mm3 10/16/19 05:15 Monocytes # (Manual) 0.0 K/mm3 (0.0-0.8) 10/16/19 05:15 Eosinophils # (Manual) 0.0 K/mm3 (0.0-0.4) 10/16/19 05:15 Basophils # (Manual) 0.0 K/mm3 (0.0-0.1) 10/16/19 05:15 Metamyelocytes # 0.0 K/mm3 10/16/19 05:15 Myelocytes # 0.0 K/mm3 10/16/19 05:15 Promyelocytes # 0.0 K/mm3 10/16/19 05:15 Blast Cells # 0.0 K/mm3 10/16/19 05:15 WBC Morphology Not Reportable 10/16/19 05:15 Hypersegmented Neuts Not Reportable 10/16/19 05:15 Hyposegmented Neuts Not Reportable 10/16/19 05:15 Hypogranular Neuts Not Reportable 10/16/19 05:15 Smudge Cells Not Reportable 10/16/19 05:15 Toxic Granulation Not Reportable 10/16/19 05:15 Toxic Vacuolation Not Reportable 10/16/19 05:15 Dohle Bodies Not Reportable 10/16/19 05:15 Pelger-Huet Anomaly Not Reportable 10/16/19 05:15 Carley Rods Not Reportable 10/16/19 05:15 Platelet Estimate Consistent w auto 10/16/19 05:15 Clumped Platelets Not Reportable 10/16/19 05:15 Plt Clumps, EDTA Not Reportable 10/16/19 05:15 Large Platelets Not Reportable 10/16/19 05:15 Giant Platelets Not Reportable 10/16/19 05:15 Platelet Satelliting Not Reportable 10/16/19 05:15 Plt Morphology Comment Not Reportable 10/16/19 05:15 RBC Morphology Not Reportable 10/16/19 05:15 Dimorphic RBCs Not Reportable 10/16/19 05:15 Polychromasia Not Reportable 10/16/19 05:15 Hypochromasia Not Reportable 10/16/19 05:15 Poikilocytosis Not Reportable 10/16/19 05:15 Anisocytosis Not Reportable 10/16/19 05:15 Microcytosis Not Reportable 10/16/19 05:15 Macrocytosis Not Reportable 10/16/19 05:15 Spherocytes Not Reportable 10/16/19 05:15 Pappenheimer Bodies Not Reportable 10/16/19 05:15 Sickle Cells Not Reportable 10/16/19 05:15 Target Cells Rare 10/16/19 05:15 Tear Drop Cells Not Reportable 10/16/19 05:15 Ovalocytes Rare 10/16/19 05:15 Helmet Cells Not Reportable 10/16/19 05:15 Sutherland-Melfa Bodies Not Reportable 10/16/19 05:15 Hartman Rings Not Reportable 10/16/19 05:15 Bowie Cells Not Reportable 10/16/19 05:15 Bite Cells Not Reportable 10/16/19 05:15 Crenated Cell Not Reportable 10/16/19 05:15 Elliptocytes Rare 10/16/19 05:15 Acanthocytes (Spur) Not Reportable 10/16/19 05:15 Rouleaux Not Reportable 10/16/19 05:15 Hemoglobin C Crystals Not Reportable 10/16/19 05:15 Schistocytes Rare 10/16/19 05:15 Malaria parasites Not Reportable 10/16/19 05:15 Han Bodies Not Reportable 10/16/19 05:15 Hem Pathologist Commnt No 10/16/19 05:15 D-Dimer 748.36 ng/mlDDU (0-234) H 10/15/19 17:49 Sodium 136 mmol/L (137-145) L 10/17/19 05:52 Potassium 3.8 mmol/L (3.6-5.0) 10/17/19 05:52 Chloride 95.2 mmol/L (98-107) L 10/17/19 05:52 Carbon Dioxide 25 mmol/L (22-30) 10/17/19 05:52 Anion Gap 20 mmol/L 10/17/19 05:52 BUN 25 mg/dL (7-17) H 10/17/19 05:52 Creatinine 1.5 mg/dL (0.7-1.2) H 10/17/19 05:52 Estimated GFR 41 ml/min 10/17/19 05:52 BUN/Creatinine Ratio 17 % 10/17/19 05:52 Glucose 102 mg/dL (65-100) H 10/17/19 05:52 Calcium 9.1 mg/dL (8.4-10.2) 10/17/19 05:52 Total Bilirubin 1.30 mg/dL (0.1-1.2) H 10/15/19 17:49 AST 21 units/L (5-40) 10/15/19 17:49 ALT 9 units/L (7-56) 10/15/19 17:49 Alkaline Phosphatase 112 units/L (35-129) 10/15/19 17:49 Troponin T 0.021 ng/mL (0.00-0.029) 10/15/19 22:37 NT-Pro-B Natriuret Pep 6707 pg/mL (0-900) H 10/15/19 18:09 Total Protein 6.6 g/dL (6.3-8.2) 10/15/19 17:49 Albumin 3.6 g/dL (3.9-5) L 10/15/19 17:49 Albumin/Globulin Ratio 1.2 % 10/15/19 17:49 Urine Color Yellow (Yellow) 10/16/19 01:55 Urine Turbidity Clear (Clear) 10/16/19 01:55 Urine pH 5.0 (5.0-7.0) 10/16/19 01:55 Ur Specific [place] 1.004 (1.003-1.030) 10/16/19 01:55 Urine Protein <15 mg/dl mg/dL (Negative) 10/16/19 01:55 Urine Glucose (UA) Neg mg/dL (Negative) 10/16/19 01:55 Urine Ketones Neg mg/dL (Negative) 10/16/19 01:55 Urine Blood Neg (Negative) 10/16/19 01:55 Urine Nitrite Neg (Negative) 10/16/19 01:55 Urine Bilirubin Neg (Negative) 10/16/19 01:55 Urine Urobilinogen < 2.0 mg/dL (<2.0) 10/16/19 01:55 Ur Leukocyte Esterase Tr (Negative) 10/16/19 01:55 Urine WBC (Auto) 1.0 /HPF (0.0-6.0) 10/16/19 01:55 Urine RBC (Auto) 1.0 /HPF (0.0-6.0) 10/16/19 01:55 U Epithel Cells (Auto) 1.0 /HPF (0-13.0) 10/16/19 01:55 Urine Bacteria (Auto) 2+ /HPF (Negative) 10/16/19 01:55 Urine Creatinine 36.4 mg/dL (0.1-20.0) H 10/17/19 Unknown Protein/Creatinin Ratio 0.30 10/17/19 Unknown Urine Sodium 92 mmol/L 10/16/19 01:55 Urine Total Protein 11 mg/dL (5-11.8) 10/17/19 Unknown Active Medications - Current Medications Current Medications: Generic Name Dose Route Start Last Admin Trade Name Freq PRN Reason Stop Dose Admin Acetaminophen 650 mg 10/15/19 20:31 10/16/19 11:50 Tylenol PO 650 mg Q4H PRN Administration Pain MILD(1-3)/Fever >100.5/HURTADO Albuterol 2.5 mg 10/15/19 20:31 Proventil IH Q3HRT PRN Shortness Of Breath Carvedilol 3.125 mg 10/15/19 22:00 10/16/19 21:54 Coreg PO 3.125 mg BID BARB Administration Cholecalciferol 5,000 unit 10/16/19 10:00 10/16/19 10:53 Vitamin D3 PO 5,000 unit QDAY BARB Administration Docusate Sodium 100 mg 10/15/19 22:00 10/16/19 21:55 Colace PO Not Given BID BARB Enoxaparin Sodium 90 mg 10/15/19 22:00 10/16/19 21:54 Enoxaparin 1 mg/kg (90 mg) 90 mg SUB-Q Administration Q12HR [facility] Furosemide 40 mg 10/16/19 06:00 10/17/19 05:27 Lasix IV 40 mg BID@0600,1800 BARB Administration Levetiracetam 750 mg 10/16/19 10:00 10/16/19 10:54 Keppra PO 750 mg QDAY BARB Administration Ondansetron HCl 4 mg 10/15/19 20:31 Zofran IV Q8H PRN Nausea And Vomiting Pantoprazole Sodium 20 mg 10/15/19 22:00 10/16/19 21:54 Protonix PO 20 mg BID BARB Administration Potassium Chloride 10 meq 10/16/19 10:00 10/16/19 10:54 K-Dur PO 10 meq QDAY BARB Administration Sodium Chloride 10 ml 10/15/19 22:00 10/16/19 21:54 Sodium Chloride Flush Syringe 10 Ml IV 10 ml BID BARB Administration Sodium Chloride 10 ml 10/15/19 20:31 Sodium Chloride Flush Syringe 10 Ml IV PRN PRN LINE FLUSH
[2019-10-17 09:05] VITALS: BP 98/60
[2019-10-17] MEDS ORDERED: ENOXAPARIN 30 MG/0.3 ML INJ SUB-Q SCH (10:00)
[2019-10-17] MEDS ORDERED: ENOXAPARIN 40 MG/0.4 ML INJ SUB-Q SCH (10:00)
[2019-10-17] MEDS: carvediloL 3.125 MG TAB PO SCH (11:00)
[2019-10-17] MEDS: DOCUSATE SODIUM 100 MG CAP PO SCH (13:03)
[2019-10-17] MEDS: POTASSIUM CHLORIDE ER 10 MEQ TAB PO SCH (13:05)
[2019-10-17] MEDS: levETIRAcetam 500 MG TAB PO SCH (13:06)
[2019-10-17] MEDS: PANTOPRAZOLE 20 MG TAB PO SCH (13:06)
[2019-10-17] MEDS: CHOLECALCIFEROL (VIT D3) 5,000 UNIT TAB PO SCH (13:06)
--- NOTE | 2019-10-17 14:24 | Discharge Summary ---
Providers - Providers Date of Admission: 10/15/19 20:31 Date of discharge: 10/17/19 Attending physician: SULEMAN VALE 10/15/19 20:40 Consult to Physician [CONS] Routine Comment: Consulting Provider: BLANQUITA TAVARES Physician Instructions: Reason For Exam: isai Primary care physician: [employer] Hospitalization Condition: Stable Pertinent studies: Tests done so farRenal ultrasound; no acute abnormalities VQ scan; low probability for PE Lower extremity venous Doppler; negative for DVT Chest x-ray; cardiomegaly, bilateral cardiopulmonary edema pleural effusions Hospital course: --Acute on chronic diastolic congestive heart failure; Continue anti-failure medication, cardiology evaluation Input output monitoring, supportive care --Acute on chronic hypoxic respiratory failure; Requiring nonrebreather mask Titrate O2 sats to more than 90% Nebulizers --Acute kidney injury; ATN /vasomotor nephropathy IV fluids, encourage plenty of oral fluids Monitor renal function, avoid nephrotoxins Mild improvement nephrology following --Elevated D-dimers; VQ low probability for PE Check lower extremity venous Doppler. To rule out DVT --History of seizures; seizure precautions Antiepileptic medication Keppra --DVT prophylaxis; Lovenox --Full CODE STATUS Monitor closely and adjust management as needed Disposition: [id number]/[place]-[facility] Time spent for discharge: 32 min Exam - Constitutional Vitals: Temp Pulse Resp BP Pulse Ox 98.1 F 64 18 98/60 96 10/17/19 08:14 10/17/19 08:14 10/17/19 08:14 10/17/19 08:14 10/17/19 08:48 Plan Activity: advance as tolerated, no driving until cleared by PCP, fall precautions, other (Seizure precautions) Diet: low salt Additional Instructions: Continue home oxygen as before. Advised to see private pulmonary per schedule. Advised to see private financial services counselor in 1 week Follow up with: LELE RIGGS MD [Primary Care Provider] - 7 Days JEANETTE HAMILTON MD [Staff Physician] - 7 Days
--- NOTE | 2019-10-17 17:03 | Progress Note ---
Assessment and Plan This is a 69 year old woman with known CKD who presents with shortness of breath # CKD 3: appears to be at baseline renal function with creatinine 1.6 and eGFR 38. Has outpatient appointment on 10/28/2019; renal function stable here - daily labs - renally dose meds - avoid nephrotoxins: would hold PPI if able given AIN risk - renal diet - UP/C WNL # Anemia: last hemoglobin 11.3, at goal for CKD # HTN/Volume: currently on Lasix 40mg IV BID, ok to continue PO from renal perspective. Subjective Date of service: 10/17/19 Interval history: No acute events noted, doing well. normal urination, no dyspnea today Objective - Exam Narrative Exam: Constitutional: no acute distress, obese Head: NC/AT Neck: supple Lungs: clear to auscultation CV: RRR, no M/R/G Abdomen: soft, non-tender, bowel sounds present Back: nontender Extremities: no edema, pulses WNL Skin: intact Neuro: no focal deficits, alert and oriented x4 - Vital Signs Vital signs: Vital Signs - 12hr 10/17/19 10/17/19 08:14 08:48 Temperature 98.1 F Pulse Rate 64 Respiratory 18 Rate Blood Pressure 98/60 O2 Sat by Pulse 100 96 Oximetry - Lab 10/16/19 05:15 10/17/19 05:52 Most recent lab results Calcium 9.1 mg/dL (8.4-10.2) 10/17/19 05:52 Urine Creatinine 36.4 mg/dL (0.1-20.0) H 10/17/19 Unknown Urine Sodium 92 mmol/L 10/16/19 01:55 Urine Total Protein 11 mg/dL (5-11.8) 10/17/19 Unknown Medications & Allergies - Medications Allergies/Adverse Reactions: Allergies lisinopril Allergy (Verified 08/13/13 15:50) Angioedema Home Medications: Home Medications Medication Instructions Recorded Confirmed Last Taken Type Cholecalciferol (Vitamin D3) 5,000 unit PO QDAY 10/15/19 10/15/19 Unknown History [Vitamin D3 5,000 UNIT] Cyproheptadine [Periactin] 4 mg PO BID 10/15/19 10/15/19 Unknown History Gluc/Chondr-MSM 7/C/Juan F/[place] 1 tab PO BID 10/15/19 10/15/19 Unknown History [Eql Glucosam-Chondro Complx Tb] Magnesium Oxide [Mag-Ox] 400 mg PO BID 10/15/19 10/15/19 Unknown History Omeprazole 20 mg PO BID 10/15/19 10/15/19 Unknown History Potassium Chloride 10 meq PO QDAY 10/15/19 10/15/19 Unknown History Torsemide [Demadex] 5 mg PO QDAY 10/15/19 10/15/19 Unknown History carvediloL [Coreg] 3.125 mg PO BID 10/15/19 10/15/19 Unknown History levETIRAcetam [Keppra TAB] 750 mg PO QDAY 10/15/19 10/15/19 Unknown History Active Medications: Generic Name Dose Route Start Last Admin Trade Name Freq PRN Reason Stop Dose Admin Acetaminophen 650 mg 10/15/19 20:31 10/16/19 11:50 Tylenol PO 650 mg Q4H PRN Administration Pain MILD(1-3)/Fever >100.5/HURTADO Albuterol 2.5 mg 10/15/19 20:31 Proventil IH Q3HRT PRN Shortness Of Breath Carvedilol 3.125 mg 10/15/19 22:00 10/17/19 11:00 Coreg PO Not Given BID [facility] Cholecalciferol 5,000 unit 10/16/19 10:00 10/17/19 13:06 Vitamin D3 PO 5,000 unit QDAY BARB Administration Docusate Sodium 100 mg 10/15/19 22:00 10/17/19 13:03 Colace PO Not Given BID BARB Enoxaparin Sodium 40 mg 10/17/19 10:00 10/17/19 11:30 Enoxaparin SUB-Q 40 mg QDAY@1000 BARB Administration Furosemide 40 mg 10/16/19 06:00 10/17/19 05:27 Lasix IV 40 mg BID@0600,1800 BARB Administration Levetiracetam 750 mg 10/16/19 10:00 10/17/19 13:06 Keppra PO 750 mg QDAY BARB Administration Ondansetron HCl 4 mg 10/15/19 20:31 Zofran IV Q8H PRN Nausea And Vomiting Pantoprazole Sodium 20 mg 10/15/19 22:00 10/17/19 13:06 Protonix PO 20 mg BID BARB Administration Potassium Chloride 10 meq 10/16/19 10:00 10/17/19 13:05 K-Dur PO 10 meq QDAY BARB Administration Sodium Chloride 10 ml 10/15/19 22:00 10/17/19 13:07 Sodium Chloride Flush Syringe 10 Ml IV 10 ml BID BARB Administration Sodium Chloride 10 ml 10/15/19 20:31 Sodium Chloride Flush Syringe 10 Ml IV PRN PRN LINE FLUSH
== END 2019-10-17 18:23 | disposition home health service (06) | DRG 291 ==
LOC: ED 16:25 → 4A 20:31
PROVIDERS: ADMIT Internal Medicine; ATTEND Internal Medicine
PROC: 3E0234Z Introduction of Serum, Toxoid and Vaccine into Muscle, Percutaneous Approach (ICD-10-PCS; principal; 2019-10-16)
DX: I13.0 Hypertensive heart and chronic kidney disease with heart failure and stage 1 through stage 4 chronic kidney disease, or unspecified chronic kidney disease (principal); J96.21 Acute and chronic respiratory failure with hypoxia; N17.0 Acute kidney failure with tubular necrosis; I50.33 Acute on chronic diastolic (congestive) heart failure; I26.99 Other pulmonary embolism without acute cor pulmonale; N18.3 Chronic kidney disease, stage 3 (moderate); D64.9 Anemia, unspecified; M19.90 Unspecified osteoarthritis, unspecified site; Z96.653 Presence of artificial knee joint, bilateral; Z79.899 Other long term (current) drug therapy; Z23 Encounter for immunization; Z99.81 Dependence on supplemental oxygen
CPT/HCPCS: 36415; 71045; 76770; 78582; 80048; 80053; 81001; 82570; 83880; 84156; 84300; 84484; 85007; 85025; 85379; 90732; 93005; 93010; 93970; 96374; G0378; A9540; A9558; J1650; J1940